=== PATIENT | male | born 1945 | race Caucasian/White ===

== ENCOUNTER 2016-09-26 15:54 | Inpatient (IN) | payer OTHER, MEDICARE ==
[2016-09-26 16:21] LABS: % BASOPHILS 0.6 % (0.0-2.0); % EOSINOPHILS 2.3 % (0.0-5.0); % LYMPHOCYTES 26.1 % (20.0-50.0); % MONOCYTES 9.5 % (2.0-10.0); % NEUTROPHILS 61.5 % (40.0-80.0); HEMATOCRIT 42.8 % (39.0-49.0); HEMOGLOBIN 14.4 gm/dL (12.6-17.4); MEAN CORPUSCULAR HEMOGLOBIN 31.2 pg (27.0-31.0); MEAN CORPUSCULAR HGB CONC 33.6 pg (28.0-36.0); NEUTROPHILE ABSOLUTE 7.7 Th/cmm (1.8-8.0); PLATELET COUNT 270 Th/cmm (150-400); RED CELL DISTRIBUTION WIDTH 11.6 % (11.5-20.0)
[2016-09-26] MEDS ORDERED: Sodium Chloride 0.9% 1,000 ML IV ONE ×2 (16:26)
[2016-09-26 16:27] LABS: WHITE BLOOD COUNT 12.6 Th/cmm (4.8-10.8)
[2016-09-26] MEDS ORDERED: Diltiazem 5 mg/mL 5mL Vial IVP STA (16:38)
[2016-09-26] MEDS ORDERED: Diltiazem 5 mg/mL 5mL Vial IVP ONE (16:39)
[2016-09-26 16:41] LABS: ALB/GLOB RATIO 1.3 (1.0-1.8); ALKALINE PHOSPHATASE 94 U/L (34-104); ANION GAP 14.5 (7.0-16.0); BILIRUBIN,TOTAL 0.7 mg/dL (0.3-1.0); BUN - UREA NITROGEN 25 mg/dL (7-25); BUN/CREATININE RATIO 27.8; CALCIUM SERUM 9.2 mg/dL (8.6-10.3); CARBON DIOXIDE 22.8 mEq/L (21.0-31.0); CHLORIDE 99 mEq/L (98-107); CREATININE - SERUM 0.9 mg/dL (0.7-1.3); GLUCOSE 123 mg/dL (70-105); POTASSIUM SERUM 4.3 mEq/L (3.5-5.1); SGOT 39 U/L (13-39); SGPT/ALT 28 U/L (7-52); SODIUM SERUM 132 mEq/L (136-145)
--- NOTE | 2016-09-26 16:51 | ED Physician Chart ---
Chief Complaint/HPI - Patient Information Date Seen:: 09/26/16 Time Seen:: 16:25 Chief Complaint:: FAST HEART RATE History of Present Illness:: THIS IS A 71 YO MALE HYPERTENSIVE DIABETIC WHO WAS SENT TO THIS ER BECAUSE OF HIS FAST HEART RATE. HE DENIES CHEST PAIN, SOB AND DIZZINESS. HE DENIES HAVING AT HEART ATTACK AND STROKE IN THE PAST. HE WAS SEEING HIS DOCTOR ABOUT HIS LEFT KNEE. HE IS NOT A SMOKER OR A DRINKER. HE DENIES HAVING ELEVATED LIPIDS AND THYROID DISEASE. Allergies:: Allergies Allergy/AdvReac Type Severity Reaction Status Date / Time Penicillins Allergy Verified 09/26/16 16:19 Vitals:: Vital Signs - 8 hr 09/26/16 09/26/16 16:18 16:19 Temp 98.0 F HR 160 159 RR 16 18 BP 160/109 201/140 O2 Sat % 99 97 Historian:: Patient Review:: Nurse's Note Reviewed Review of Systems - Review of Systems General/Constitutional: No fever, No chills, No weight loss, No weakness, No diaphoresis, No edema, No loss of appetite Skin: No skin lesions, No rash, No bruising Head: No headache, No light-headedness Eyes: No loss of vision, No pain, No diplopia ENT: No earache, No nasal drainage, No sore throat, No tinnitus Neck: No neck pain, No swelling, No thyromegaly, No stiffness, No mass noted Cardio Vascular: No chest pain, Palpitations, No PND, No orthopnea, No edema Pulmonary: No SOB, No cough, No sputum, No wheezing GI: No nausea, No vomiting, No diarrhea, No pain, No melena, No hematochezia, No constipation, No hematemesis G/U: No dysuria, No frequency, No hematuria Musculoskeletal: No bone or joint pain, No back pain, No muscle pain Endocrine: No polyuria, No polydipsia Psychiatric: No prior psych history, No depression, No anxiety, No suicidal ideation Hematopoietic: No bruising, No lymphadenopathy Allergic/Immuno: No urticaria, No angioedema Neurological: No syncope, No focal symptoms, No weakness, No paresthesia, No headache, No seizure, No dizziness, No confusion, No vertigo Past Medical History - Past Medical History Obtainable: Yes Past Medical History: HTN, DM, CAD, Arthritis Family History: None Social History: Non Smoker, No Alcohol, No Drug Use, Surgical History: None Psychiatricy History: None Medication: Reviewed Family Medical History - Family Member Mother History Unknown: Yes Physical Exam - Physical Examination General/Constitutional: Awake, Well-developed, well-nourished, Alert, No distress, GCS 15, Non-toxic appearing, Ambulatory Other Gen/Cons comments:: OBESE Head: Atraumatic Eyes: Lids, conjuctiva normal, PERRL, EOMI Skin: Nl inspection, No rash, No skin lesions, No ecchymosis, Well hydrated, No lymphadenopathy ENMT: External ears, nose nl, Nasal exam nl, Lips, teeth, gums nl Neck: Nontender, Full ROM w/o pain, No JVD, No nuchal rigidity, No bruit, No mass, No stridor Respiratory: Nl effort/Exclusion, Clear to Auscultation, No Wheeze/Rhonchi/Rales Cardio Vascular: RRR, No murmur, gallop, rubs, NL S1 S2 Other Cardio Vascular comments:: TACHYCARDIA 167 BEATS A MINUTES GI: No tenderness/rebounding/guarding, No organomegaly, No hernia, Normal BS's, Nondistended, No mass/bruits, No McBurney tenderness : No CVA tenderness Extremities: No tenderness or effusion, Full ROM, normal strength in all extremities, No edema, Normal digits & nails Other Extremities comments:: LEFT KNEE IS TENDER WITH PAINFUL ROM Neuro/Psych: Alert/oriented, DTR's symmetric, Normal sensory exam, Normal motor strength, Judgement/insight normal, Mood normal, Normal gait, No focal deficits Misc: normal gait, Normal back, No paraspinal tenderness Labs/Radiology/EKG Results - Lab Results Results: Laboratory Tests 09/26/16 09/26/16 09/26/16 16:00 16:00 16:08 WBC 12.6 H RBC 4.60 Hgb 14.4 Hct 42.8 MCV 93.0 MCH 31.2 H MCHC Differential 33.6 RDW 11.6 Plt Count 270 MPV 9.0 Neutrophils % 61.5 Lymphocytes % 26.1 Monocytes % 9.5 Eosinophils % 2.3 Basophils % 0.6 Sodium 132 L Potassium 4.3 Chloride 99 Carbon Dioxide 22.8 Anion Gap 14.5 BUN 25 Creatinine 0.9 Est GFR ( Amer) TNP Est GFR (Non-Af Amer) TNP BUN/Creatinine Ratio 27.8 Glucose 123 H POC Glucose 128 H Calcium 9.2 Total Bilirubin 0.7 AST 39 ALT 28 Alkaline Phosphatase 94 Total Protein 7.2 Albumin 4.1 L Globulin 3.1 Albumin/Globulin Ratio 1.3 - EKG Interpretations EKG Time:: 15:56 Rate & Rhythm: 153 [place]: LEFT AXIS Intervals: NO ECTOPICS Assessment - Assessment General Assessment: THE PATIENT WAS GIVEN A FLUID CHALLENGE AND THERE WAS NO GOOD RESPONSE. THE PATIENT WAS PLACED ON O2 NASAL CANNULA. THE PATIENT WAS GIVEN CARDIAZEM 10 MG IV PUSH AND HE RATE RESPONDED GOING DOWN TO 116 BEATS A MINUTES. THE PATIENT TOLERATED THIS WELL AND THE BLOOD PRESSURE ALSO CAME DOWN NICELY. ED Septic Shock - . Is Septic Shock (SBP<90, OR Lactate>4 mmol\L) present?: No - <6hrs of presentation: Vital Signs: Vital Signs - 8 hr 09/26/16 09/26/16 16:18 16:19 Temp 98.0 F HR 160 159 RR 16 18 BP 160/109 201/140 O2 Sat % 99 97 Reassessment (Disposition) - Reassessment Reassessment Condition:: Improved - Diagnosis Diagnosis:: TACHYCARDIA HYPERTENSION UNCONTROLLED DIABETES MELLITUS - Patient Disposition Discharge/Transfer:: Acute Care w/in this hosp Admitting Medical Physician:: Carlos Smith Condition at Disposition:: Improved ED Discharge Plan - Patient Disposition Admit/Discharge/Transfer: Acute Care w/in this hosp Condition at Disposition: Improved
[2016-09-26 16:53] LABS: INR 1.01 (0.5-1.4); PROTHROMBIN TIME (TEST) 10.5 SECONDS (9.5-11.5)
[2016-09-26 17:04] LABS: CHOLESTEROL 179 mg/dL (<200); TRIGLYCERIDES 218 mg/dL (<150)
[2016-09-26] MEDS ORDERED: Diltiazem 5 mg/mL 25mL Vial IV ONE (18:51)
--- NOTE | 2016-09-26 19:26 | Admit Criteria Form ---
Admit Criteria Forms - Admit Criteria Diagnosis: INTENSIVE CARE UNIT ADMISSION Intensive Care Admission Guidelines ( Place 'X' for any and all applicable criteria): Admission to ICU may be indicated when need is demonstrated by ANY ONE of the following (1)(2)(3)(4)(5)(6)(7)(8)(9) : [X]I. Vital sign abnormalities, including ANY ONE of the following: [ ]a) Systolic arterial pressure less than 90 mm Hg, or 20 mm Hg below the patient's usual pressure [ ]b) Diastolic arterial pressure greater than 120 mm Hg [ ]c) Mean arterial pressure less than 70 mm Hg [A] [X]d) Pulse less than 40 or greater than 140 beats per minute (in adult) [ ]e) Respiratory rate greater than 35 or less than 8 breaths per minute [ ]II. Laboratory findings (new), including ANY ONE of the following (10): [ ]a) Saturation of arterial oxygen less than 88% or partial pressure of oxygen less than 60 mm Hg (8.0 kPa) despite oxygen supplementation [ ]b) Rising partial pressure of carbon dioxide with respiratory acidosis [ ]c) pH less than 7.2 or greater than 7.65 [ ]d) Serum glucose greater than 800 mg/dL (44.4 mmol/L) [ ]e) Serum sodium less than 110 mEq/L (mmol/L) or greater than 160 mEq/L (mmol/L) [ ]f) Serum potassium less than 2 mEq/L (mmol/L) or greater than 7 mEq /L (mmol/L) [ ]g) Serum calcium greater than 15 mg/dL (3.75 mmol/L) [ ]h) Serum phosphorus less than 1 mg/dL (0.32 mmol/L) [ ]i) Toxic drug level or poisoning causing or likely to cause neurologic or Hemodynamic instability [ ]j) Less severe laboratory abnormalities contributing to ANY ONE of the following: [ ]i) Seizure [ ]ii) Altered mental status [ ]iii) Muscle weakness [ ]iv) Arrhythmias [ ]v) Hemodynamic instability [ ]vi) Other significant clinical manifestations [ ]III. Electrocardiogram (or cardiac monitoring) findings, including ANY ONE of the following: [ ]a) Inherently unstable or life-threatening arrhythmia (eg, sustained ventricular tachycardia, ventricular fibrillation, asystole) [ ]b) Arrhythmia causing severe hypotension (eg, bradycardia, tachycardia) [ ]c) Complete heart block causing severe hypotension [ ]d) Other findings indicative of a need for intensive care (eg , [place]) [ ]IV.Physical findings, including ANY ONE of the following: [ ]a) Threatened airway [ ]b) Sudden altered mental status [ ]c) Repeated or prolonged seizures [ ]d) Coma [ ]e) New-onset anuria (urine output <0.1 mL/kg/hr over 4 h) [ ]f) Cyanosis (new) [ ]g) Cardiac tamponade [ ]h) Status post respiratory or cardiac arrest [ ]i) Severe tejada (eg, partial thickness tejada over more than 10% of body surface, third-degree tejada) [ ]j) Findings consistent with abdominal emergency (eg, peritoneal signs) [ ]V.Imaging findings, such as dissecting aneurysm or ruptured viscus [ ].Specific intervention or monitoring needed, as indicated by ANY ONE of the following: [ ]a) New need for assisted ventilation, invasive or noninvasive(11) [ ]b) New need for intubation (eg, to protect airway) [ ]c) New tracheostomy (less than 48 hours old) [ ]d) Hourly vital signs or neurologic checks [ ]e) Pulmonary artery line monitoring needed [ ]f) Continuous arterial line monitoring needed [ ]g) Continuous IV vasoactive drugs [ ]h) Continuous IV antiarrhythmics [ ]i) Large volume IV fluid resuscitation (eg, greater than 6 L per day ) [ ]j) Large or rapid transfusion needs (eg, more than 6 units within 24 hours) [ ]k) High-risk IV treatment, such as bolus IV medicatns or mannitol infusion [ ]l) Acute cardiac pacing [ ]m) Intra-aortic balloon pump [ ]n) Ventricular assist device [ ]o) Cardioversion [ ]p) Pericardiocentesis [ ]q) Hemodialysis in unstable patient [ ]r) Continuous renal replacement therapy (eg, continuous veno-venous hemofiltration) [ ]s) Peritoneal dialysis initiation [ ]t) Emergency bronchoscopic therapy (eg, for hemoptysis) [ ]u) Emergency endoscopic therapy for bleeding [ ]v) Balloon tamponade for variceal bleeding [ ]w) Intracranial pressure monitoring or tissue oxygen monitoring [ ]x) Ventriculostomy monitoring [ ]y) Treatment of ongoing seizures [ ]z) Induced hypothermia or coma [ ]aa) Ongoing frequent testing and treatment for acute conditions, including ANY ONE of the following: [ ]i) Correction of severe metabolic acidosis/ alkalosis [ ]ii). Severe fluid overload [ ]iii) Cerebral edema [ ]iv) Monitoring or suctioning for respiratory insufficiency or acidosis [ ]v) Monitoring for active bleeding [ ]bb) Rapid desensitization for high-risk hypersensitivity reaction to required medication (eg, penicillin)(12) [ ]cc) Other need for treatment or monitoring not available outside the ICU [ ]VII.Cardiology diagnoses or procedures, including ANY ONE of the following (13)(14)(15)(16)(17): [ ]a) Chest pain with ANY ONE of the following: [ ]i) Hemodynamic instability [ ]ii) Suspicion of diagnoses needing ICU care (eg, aortic dissection) [ ]iii) New unstable or symptomatic arrhythmia or ECG finding (eg, ventricular tachycardia, ventricular fibrillation, advanced heart block) [ ]iv) Syncope or near-syncope [ ]v) SBP less than 100 mm Hg [ ]vi) Pulmonary edema thought to be due to ischemia [ ]vii) New or worsening mitral regurgitation murmur, S3 , or rales [ ]b) Acute [place] with complications as indicated by ANY ONE of the following: [ ]i) Persistent chest pain [ ]ii) Hemodynamic instability [ ]iii) New unstable or symptomatic arrhythmia or ECG finding (eg, ventricular tachycardia, ventricular fibrillation, advanced heart block) [ ]iv) Syncope or near-syncope [ ]v) Pulmonary edema thought to be due to ischemia [ ]vi) New or worsening mitral regurgitation murmur, S3 , or rales [ ]vii) New-onset bundle branch block [ ]viii) Hemorrhagic complication (eg, intracranial or access site bleed following thrombolysis) [ ]c) Cardiac arrhythmia or conduction defect with Hemodynamic instability [ ]d) Complication of cardiac ablation, including ANY ONE of the following(18): [ ]i) Pericardial tamponade [ ]ii) Hemodynamic instability [ ]iii) Thromboembolic stroke [ ]iv) Aortic valve injury [ ]v) Vascular injuries [ ]vi) Esophageal perforation [ ]vii) Severe arrhythmia [ ]viii) Air embolism [ ]ix) Other severe complication [ ]e) Cardiogenic shock [ ]f) Hypertensive emergency, with need for ANY ONE of the following(19): [ ]i) IV antihypertensive therapy [ ]ii) Invasive hemodynamic monitoring (eg, arterial line) [ ]g) Pericardial tamponade [ ]h) Severe heart failure, with ANY ONE of the following(15): [ ]i) Respiratory failure [ ]ii) Cardiogenic shock [ ]iii) Severe arrhythmias [ ]iv) Evidence of cardiac ischemia [ ]i Myocarditis, with ANY ONE of the following [ ]i) Hemodynamic instability [ ]ii) Respiratory failure [ ]iii) Severe arrhythmias [ ]iv) Need for cardiac assist device (eg, left ventricular assist device or extracorporeal membrane oxygenator) [ ]j) Status post cardiac arrest(20) [ ]VIII. Cardiovascular Surgery diagnoses or procedures, including ANY ONE of the following.(21)(22): [ ]a) Acute aortic dissection [ ]b) Aortic surgery for ANY ONE of the following: [ ]i) Thoracic aneurysm [ ]ii) Abdominal aneurysm with ANY ONE of the following(23): [ ]1) Emergency repair [ ]2) Severe cardiopulmonary disease [ ]3) Dialysis-dependent renal failure [ ]4) Need for IV blood pressure control [ ]5) Need for ongoing ventilatory support [ ]6) Perioperative complications, including ANY ONE of the following: [ ]A. Sustained Hemodynamic instability [ ]B. Cardiac ischemia or arrhythmia [ ]C. Hypothermia (less than 35 degrees C (95 degrees F)) [ ]D. Blood transfusion greater than 3 L [ ]iii) Aortic coarctation operative excision or repair [ ]iv) Aortofemoral or aortoiliac bypass with ANY ONE of the following: [ ]1) Continued intubation [ ]2) Hemodynamic instability [ ]3) Need for IV blood pressure control [ ]4) Severe cardiopulmonary disease [ ]c) Cardiac surgery [ ]d) Carotid endarterectomy or stent placement with ANY ONE of the following: [ ]i) Blood pressure <100/60 mm Hg or >160/90 mm Hg despite 4 h of postanesthetic management [ ]ii) New or progressive neurologic defect [ ]iii) Chest pain [ ]iv) Continued intubation [ ]v) Heart failure [ ]vi) Airway compromise by hematoma or vocal cord paralysis [ ]vi) Need for IV blood pressure control [ ]e) Heart transplant [ ]f) Infrainguinal peripheral vascular surgery with ANY ONE of the following: [ ]i) Hemodynamic instability [ ]ii) Acute complications such as persistent chest pain or respiratory distress [ ]iii) Requirement for IV antiarrhythmic or vasoactive agent [ ]iv) Requirement for pulmonary artery catheter [ ]v) Severe hypertension despite 6 hours of recovery room management [ ]g) Complications of any surgery requiring ICU intervention as indicated by ANY ONE of the following(24): [ ]i) Hemodynamic instability [ ]ii) Myocardial infarction with complications (eg, severe arrhythmia, hypotension) [ ]iii) Excessive bleeding or severe coagulopathy [ ]iv) Respiratory failure [ ]v) Renal failure [ ]vi) Airway instability or obstruction [ ]vii) Neurologic deterioration [ ]viii) Infection with likelihood of sepsis syndrome or significant fluid shifts [ ]IX.Endocrinology diagnoses or procedures, including ANY ONE of the following(25)(26): [ ]a) Adrenal crisis with Hemodynamic instability(27) [ ]b) Pheochromocytoma with ANY ONE of the following(28): [ ]i) Hypertensive crisis [ ]ii) Postoperative Hemodynamic instability [ ]iii) Need for IV vasoactive therapy [ ]iv) Need for invasive arterial or central venous pressure monitoring [ ]v) Organ ischemia [ ]c) Diabetic hyperosmolar state with obtundation or coma [ ]d) Diabetic ketoacidosis with ANY ONE of the following: [ ]i) Serum pH less than 7.10 or bicarbonate level less than 10 mEq/L (mmol/L) [ ]ii) Rapidly changing electrolytes [ ]iii) Hypotension [ ]iv) Requirement for large-volume fluid resuscitation [ ]v) Respiratory insufficiency [ ]vi) Life-threatening cardiac dysrhythmias [ ]vii) Obtundation [ ]viii) Severe precipitating condition such as sepsis, stroke, or acute [place] [ ]e) Severe hypoglycemia requiring continuous glucose infusion with frequent adjustment or glucagon infusion [ ]f) Hyperthyroidism associated with thyroid storm (also known as thyrotoxic crisis)(29) [ ]g) Myxedema with life-threatening neurologic, cardiovascular, electrolyte, or renal dysfunction(29) [ ]h) Diabetes insipidus that cannot be controlled with routine medication (30) [ ]X. Gastroenterology diagnoses or procedures, including ANY ONE of the following: [ ]a) Esophageal perforation(31) [ ]b) Severe caustic esophageal injury(31) [ ]c) Liver disease complications with ANY ONE of the following(32): [ ]i) Severe hepatic encephalopathy (eg, stage 3 (somnolent) or higher) [ ]ii) Type 1 hepatorenal syndrome [ ]iii) Other cirrhosis-associated causes of acute renal failure ( eg, severe hypovolemia, acute tubular necrosis, abdominal compartment syndrome) [ ]iv) Hemodynamic instability [ ]v) Respiratory insufficiency due to severe ascites [ ]vi) Sepsis due to spontaneous bacterial peritonitis [ ]d) Fulminant hepatic failure when aggressive intervention or transplant is anticipated (32) [ ]e) Gastrointestinal hemorrhage (upper or lower) with ANY ONE of the following(33)(34): [ ]i) Active ongoing bleeding [ ]ii) Transfusion requirement greater than 2 units of packed red cells [ ]iii) Bleeding ulcer or nonbleeding visible vessel seen on endoscopy [ ]iv) Bleeding ulcer, visible blood vessel, bleeding (or recently bleeding) esophageal varices seen on endoscopy [ ]v) Hypotension [ ]vi) Syncope [ ]vii) Coagulopathy [ ]viii) Hepatic cirrhosis [ ]ix) Abnormal mental status [ ]x) Unstable comorbid condition or end organ dysfunction [ ]xi) Ischemia due to poor perfusion [ ]xii) Need for hemodynamic monitoring (eg, for patients with heart failure or valvular disease) [ ]f) Severe pancreatitis indicated by ANY ONE of the following (35)(36): [ ]i) Requirement for aggressive fluid resuscitation [ ]ii) Life-threatening electrolyte abnormality [ ]iii) SBP less than 90 mm Hg [ ]iv) Persistent tachycardia greater than 120 beats per minute [ ]v) Patients at high risk of rapid deterioration, including ANY ONE of the following: [ ]1) Calculated Sallis II score greater than 8 [ ]2) Age older than 55 years [ ]3) BMI greater than 30 [ ]4) Greater than 30% pancreatic necrosis on CT scan [ ]5) Admission hematocrit greater than 47% (0.47) [ ]vi) Organ failure as indicated by ANY ONE of the following: [ ]1) Serum creatinine greater than 1.9 mg/dL (168 micromoles/L) [ ]2) Requirement for mechanical ventilation [ ]3) Urine output less than 50 mL/hour [ ]4) Arterial partial pressure of oxygen less than 60 mm Hg (8.0 kPa) despite supplemental oxygen [ ]5) PiO2/FiO2 ratio less than 300 [ ]vii) Expanding pseudocyst [ ]viii) Infected pancreas [ ]ix) Pleural effusion [ ]x) Encephalopathy [ ]xi) Severe comorbidities [ ]XI. General Surgery diagnoses or procedures, including ANY ONE of the following (9)(24)(37): [ ]a) Acute abdominal catastrophe (eg, ischemic bowel, perforated viscus, abdominal compartment syndrome) [ ]b) Complications of any surgery requiring ICU intervention as indicated by ANY ONE of the following: [ ]i) Hemodynamic instability [ ]ii) [place] with complications (eg, severe arrhythmia, hypotension) [ ]iii) Excessive bleeding or severe coagulopathy [ ]iv) Respiratory failure [ ]v) Renal failure [ ]vi) Airway instability or obstruction [ ]vii) Neurologic deterioration [ ]viii) Infection with likelihood of sepsis syndrome or significant fluid shifts [ ]c) Multiple trauma with complicating features as indicated by ANY ONE of the following(38): [ ]i) Impending acute respiratory failure due to lung contusion, unstable chest wall, aspiration, or hemorrhage [ ]ii) Facial or neck injury threatening airway patency [ ]iii) Cardiac contusion [ ]iv) Pericardial effusion [ ]v) Bronchial tear [ ]vi) Hemodynamic instability [ ]vii) Rhabdomyolisis requiring large volume IV fluid resuscitation [ ]viii)Other significant complicating feature [ ]d) Organ transplant(39)(40) [ ]e) Esophagectomy(31) [ ]f) Whipple procedure [ ]g) Preoperative or postoperative patients requiring ICU intervention, such as hemodynamic optimization, pulmonary artery monitoring, mechanical ventilation, or extensive nursing care [ ]h) Obesity surgery patients with ANY ONE of the following(41): [ ]i) ICU management needs for comorbid conditions, such as sleep apnea or airway management needs [ ]ii) Failed postoperative extubation [ ]iii) Intraoperative complications [ ]XII. Nephrology diagnoses or procedures, including acute, or acute on chronic renal insufficiency with ANY ONE of the following(44)(45): [ ]a) Life-threatening electrolyte or acid-base disorder [ ]b) Acute pulmonary edema [ ]c) Hypotension or significant volume depletion [ ]d) Hypertensive emergency [ ]e) Underlying critical illness contributing to renal failure (eg, septic shock, hepatorenal syndrome) [ ]f) Need for continuous renal replacement therapy [ ]XIII. Neurology diagnoses or procedures, including ANY ONE of the following (46)(47) [B] : [ ]a) Intracranial hypertension requiring ANY ONE of the following(49 ): [ ]i) Induced barbiturate coma [ ]ii) Pharmacologic paralysis or deep sedation and mechanical ventilation [ ]iii) Intracranial pressure or cerebral perfusion pressure monitoring [ ]iv) IV mannitol or hypertonic saline [ ]v) Frequent serum osmolality measurements [ ]b) Seizures with ANY ONE of the following(50): [ ]i) Status epilepticus [ ]ii) Airway compromise requiring or likely to require mechanical ventilation [ ]iii) Severe electrolyte abnormalities causing seizures [ ]c) Progressive acute neurologic dysfunction requiring or likely to require ANY ONE of the following: [ ]i) Mechanical ventilation [ ]ii) Intracranial pressure or cerebral perfusion pressure monitoring [ ]d) Meningitis with obtundation or respiratory insufficiency [C])(51 ) [ ]e) Stroke with ANY ONE of the following(52)(53): [ ]i) Need for observation after thrombolysis [ ]ii) Altered mental status [ ]iii) Need for mechanical ventilation [ ]iv) Elevated intracranial pressure [ ]v) Hypertensive emergency [ ]vi) High risk of progressive infarction or deterioration based on CT scan or MRI [ ]vii) Hemorrhage [ ]f) Acute coma [ ]g) Acute spontaneous intracranial hemorrhage(53)(54) [ ]h) Drug ingestion with ANY ONE of the following(56)(57): [ ]i) Hemodynamic instability [ ]ii) Respiratory depression (partial pressure of carbon dioxide >45 mm Hg (6.0 kPa), new) [ ]iii) Patient requires or is likely to require mechanical ventilation. [ ]iv) Arrhythmias [ ]v) Seizures [ ]vi) Altered mental status ([place] coma scale score less than 12, new) [ ]vii) Significant risk for acute deterioration (eg, toxic level of hypotension or arrhythmia-producing drug) [ ]viii) Drug-induced hypothermia or hyperthermia [ ]ix) Increasing metabolic acidosis [ ]x) Severe hypoglycemia requiring glucose infusion with frequent adjustment or glucagon administration [ ]xi) Ongoing antidote administration (eg, continuous naloxone infusion, organophosphate toxicity treatment) [ ]xii) Emergency intervention need (eg, dialysis, hemoperfusion, restraints) [ ]i) Brain with preparation for organ donation [ ]j) Traumatic brain injury with ANY ONE of the following(55): [ ]i) Altered mental status (eg, new onset Aleja coma scale score less than 10) [ ]ii) Cerebral edema [ ]iii) Cerebral hemorrhage [ ]iv) Increased intracranial pressure [ ]XIV. Neurosurgery diagnoses or procedures, including ANY ONE of the following(49)(58)(59): [ ]a) Emergency craniotomy for tumor, hematoma, or trauma [ ]b) Elective craniotomy for posterior fossa tumor [ ]c) Elective craniotomy (supratentorial) for tumor with ANY ONE of the following: [ ]i) Postoperative neurologic deficit or impaired consciousness 6 hours after completion of procedure [ ]ii) SBP less than 110 mm Hg or greater than 180 mm Hg despite therapy [ ]iii) Extensive operative blood loss [ ]iv) High anesthesia risk (eg, [place] [employer] score greater than 3 [ ]d) Craniotomy for aneurysm with ANY ONE of the following: [ ]i) Postoperative neurologic deficit or impaired consciousness 6 hours after completion of procedure [ ]ii) Preoperative Bucio-Cummings grade 3 or higher [ ]iii) SBP less than 110 mm Hg or greater than 180 mm Hg despite therapy [ ]iv) Intracranial pressure monitoring [ ]e) Acute spinal cord injury [ ]f) Subarachnoid hemorrhage [ ]g) Traumatic brain injury with ANY ONE of the following: [ ]i) Acute mental status change ([place] coma scale score less than 10) [ ]ii) CT scan showing cerebral edema or hemorrhage [ ]iii) Intracranial pressure monitoring [ ]h) Complications of any surgery requiring ICU intervention as indicated by ANY ONE of the following(60): [ ]i) Hemodynamic instability [ ]ii) [place] with complications (eg, severe arrhythmia, hypotension) [ ]iii) Excessive bleeding or severe coagulopathy [ ]iv) Respiratory failure [ ] v) Renal failure [ ]vi) Airway instability or obstruction [ ]vii) Neurologic deterioration [ ]viii) Infection with likelihood of sepsis syndrome or significant fluid shifts [ ]i) Preoperative or postoperative patients requiring ICU intervention, such as hemodynamic optimization, pulmonary artery monitoring, mechanical ventilation, or extensive nursing care [ ]XV.Obstetrics and Gynecology diagnoses or procedures, including ANY ONE of the ffg. (61)(62)(63): [ ]a) Severe peripartum condition as indicated by ANY ONE of the following: [ ]i) Eclampsia [ ]ii) Hypertensive emergency [ ]iii) HELLP syndrome (hemolysis, elevated liver enzymes, and low platelet count) [ ]iv) Pulmonary edema [ ]v) Respiratory failure [ ]vi) Pulmonary embolism [ ]vii) Anaphylactoid syndrome of (amniotic fluid embolus) [ ]viii) Ovarian hyperstimulation syndrome [D] [ ]ix) Acute fatty liver of (hepatic failure) [ ]x) Complications such as placental abruption or severe hemorrhage [ ]xi) Sepsis (eg, puerperal sepsis, chorioamnionitis, septic ) [ ]xii) cardiomyopathy with severe congestive heart failure (eg, respiratory failure, cardiogenic shock) [ ]b) Ruptured ectopic [ ]c) Complications of any surgery requiring ICU intervention as indicated by ANY ONE of the following: [ ]i) Hemodynamic instability [ ]ii) [place] with complications (eg, severe arrhythmia, hypotension) [ ]iii) Excessive bleeding or severe coagulopathy [ ]iv) Respiratory failure [ ]v) Renal failure [ ]vi) Airway instability or obstruction [ ]vii) Neurologic deterioration [ ]viii) Infection with likelihood of sepsis syndrome or significant fluid shifts [ ]d) Preoperative or postoperative patients requiring ICU intervention , such as hemodynamic optimization, pulmonary artery monitoring, mechanical ventilation, or extensive nursing care [ ]XVI.Ophthalmology diagnoses or procedures, including ANY ONE of the following (64): [ ]a) Complications of any surgery requiring ICU intervention, such as ANY ONE of the following: [ ]i) Hemodynamic instability [ ]ii) [place] with complications (eg, severe arrhythmia, hypotension) [ ]iii) Excessive bleeding or severe coagulopathy [ ]iv) Respiratory failure [ ]v) Renal failure [ ]vi) Airway instability or obstruction [ ]vii) Neurologic deterioration [ ]viii) Infection with likelihood of sepsis syndrome or significant fluid shifts [ ]b) Preoperative or postoperative patients requiring ICU intervention , such as hemodynamic optimization, pulmonary artery monitoring, mechanical ventilation, or extensive nursing care [ ]XVII.Orthopedics diagnoses or procedures, including ANY ONE of the following [phone]): [ ]a) Complications of any surgery requiring ICU intervention as indicated by ANY ONE of the following: [ ]i) Hemodynamic instability [ ]ii) [place] with complications (eg, severe arrhythmia, hypotension) [ ]iii) Excessive bleeding or severe coagulopathy [ ]iv) Respiratory failure [ ]v) Renal failure [ ]vi) Airway instability or obstruction [ ] vii) Neurologic deterioration [ ]viii) Infection with likelihood of sepsis syndrome or significant fluid shifts [ ]b) Multiple trauma with complicating features as indicated by ANY ONE of the following(38): [ ]i) Impending acute respiratory failure due to lung contusion, unstable chest wall, pneumothorax, aspiration, or hemorrhage [ ]ii) Facial or neck injury threatening airway patency [ ]iii) Cardiac contusion [ ]iv) Rhabdomyolysis requiring large volume IV fluid resuscitation [ ]v) Pericardial effusion [ ]vi) Bronchial tear [ ]vii) Hemodynamic instability [ ]viii) Other significant complicating feature [ ]c) Threatened compartment syndrome [ ]d) Severe tejada with ANY ONE of the following(68)(69)(70): [ ]i) Hypotension or requirement for aggressive fluid resuscitation [ ]ii) Respiratory insufficiency with requirement for high- flow oxygen or mechanical ventilation [ ]iii) Carbon monoxide poisoning [ ]iv) Life-threatening cardiac, renal, pulmonary, or neurologic dysfunction [ ]v) High-voltage (eg, 1000 volts or more) electrical burn [ ]vi) Requirement for frequent or intensive debridement and dressing changes; examples include: [ ]1) Partial thickness tejada greater than 10% of body surface [ ]2) Tejada on face, hands, feet, genitalia, perineum , or major joints [ ]3) Third-degree tejada [ ]4) Any burn greater than 15% of body surface area [ ]vii) Inhalation lung injury [ ]viii) Concomitant trauma or other medical condition requiring ICU care [ ]e) Preoperative or postoperative patients requiring ICU intervention , such as hemodynamic optimization, pulmonary artery monitoring, mechanical ventilation, or extensive nursing care [ ]XVIII.Otolaryngology diagnoses or procedures, including ANY ONE of the following (71)(72): [ ]a) Complications of any surgery requiring ICU intervention as indicated by ANY ONE of the following: [ ]i) Hemodynamic instability [ ]ii) [place] with complications (eg, severe arrhythmia, hypotension) [ ]iii) Excessive bleeding or severe coagulopathy [ ]iv) Respiratory failure [ ]v) Renal failure [ ]vi) Airway instability or obstruction [ ]vii) Neurologic deterioration [ ]viii) Infection with likelihood of sepsis syndrome or significant fluid shifts [ ]b) Airway or hemodynamic compromise that persists after 3 hours of observation in postanesthesia care unit following nasal, palate (eg, uvulopalatopharyngoplasty or palatoplasty), or tongue surgery for sleep apnea [ ]c) Preoperative or postoperative patient requiring ICU intervention, such as hemodynamic optimization, pulmonary artery monitoring, mechanical ventilation, or extensive nursing care [ ]d) Symptomatic upper airway compromise (eg, laryngeal edema, mass) [ ]e) Other airway-compromising procedure (eg, posterior nasal packing) [ ]XIX.Thoracic Surgery and Pulmonary Disease Diagnosis or procedures, including ANY ONE of the following(6): [ ]a) Asthma with ANY ONE of the following(73)(74): [ ]i) Impending or actual respiratory arrest [ ]ii) Need for mechanical ventilation [ ]iii) Peak expiratory flow rate less than 30% of predicted or personal best [ ]iv) Peak expiratory flow rate or FEV1 less than 40% predicted after 1 hour of initial treatment [ ]v) Acidosis [ ]vi) Persistent or worsening hypoxia after initial treatment [ ]vii) Hypercapnia (eg, partial pressure of carbon dioxide greater than 43 mm Hg (5.7 kPa)) [ ]viii) Severe drowsiness, confusion, or coma [ ]ix) Requiring continuous inhaled bronchodilator [ ]b) COPD with ANY ONE of the following(75): [ ]i) Need for assisted ventilation [ ]ii) Hemodynamic instability [ ]iii) Severe dyspnea unresponsive to initial treatment [ ]iv) Change in level of consciousness [ ]v) Persistent findings despite oxygen and outpatient management, including ANY ONE of the following: [ ]1) Partial pressure of oxygen less than 40 mm Hg ( 5.3 kPa) [ ]2) Partial pressure of carbon dioxide greater than 60 mm Hg (8.0 kPa) [ ]3) pH less than 7.25 [ ]4) Worsening hypoxemia or acidosis [ ]c) Cor pulmonale with ANY ONE of the following(75)(76)(77): [ ]i) Hemodynamic instability [ ]ii) Need for IV inotropic or vasoactive agent [ ]iii) Need for invasive hemodynamic monitoring (eg, central venous, pulmonary artery, or arterial catheter) [ ]iv) Hypoxemia with partial pressure of oxygen less than 40 mm Hg (5.3 kPa) [ ]v) Worsening hypoxemia or acidosis despite oxygen therapy [ ]vi) Need for assisted ventilation [ ]vii) Need for right ventricular assist device [ ]viii) Unstable atrial tachyarrhythmia [ ]ix) Need for inhaled nitric oxide [ ]d) Aspiration pneumonia with ANY ONE of the following(78): [ ]i) Acute respiratory distress syndrome (PaO2/FiO2 ratio of 300 or less) [ ]ii) Impending or actual respiratory arrest [ ]iii) Need for invasive or noninvasive mechanical ventilation [ ]e) Pneumocystis jiroveci pneumonia with ANY ONE of the following(79): [ ]i) Impending or actual respiratory arrest [ ]ii) Hypoxia (eg, PO260 mmGh (8.0 kPa) or less despite oxygen therapy) [ ]iii) Need for invasive or noninvasive mechanical ventilation [ ]f) Pneumonia with ANY ONE of the following(80)(81)(82): [ ]i) Need for invasive or noninvasive assisted ventilation [ ]ii) Hemodynamic instability [ ]iii) Severity factors as indicated by 3 or MORE of the following: [ ]1) Respiratory rate 30 breaths per minute or greater [ ]2) PaO2/FiO2 ratio of 250 or less [ ]3) Multilobed infiltrates [ ]4) Altered mental status [ ]5) BUN 20 mg/dL (7.1 mmol/L) or greater [ ]6) WBC count less than 4000/mm3 (4 x109/L) [ ]7) Platelet count <100,000/mm3 (100 x109/L) [ ]8) Temperature less than 36 degrees C (96.8 degrees F ) [ ]9) Hypotension requiring aggressive fluid resuscitation [ ]g) Pulmonary hypertension requiring initiation of parenteral pulmonary vasodilator or trial of inhaled nitric oxide (eg, need for right heart catheterization)(76) [ ]h) Impending respiratory failure as indicated by ANY ONE of the following: [ ]i) Respiratory rate greater than 30 or partial pressure of oxygen less than 60 mm Hg (8.0 kPa) on 50% oxygen or more [ ]ii) Partial pressure of carbon dioxide greater than 45 mm Hg (6.0 kPa) with pH less than 7.35 [ ]i) Respiratory failure with ANY ONE of the following (47): [ ]i) Need for invasive or noninvasive mechanical ventilation [ ]ii) High likelihood of requiring mechanical ventilation within 24 hours [ ]iii) Observation in the first several hours immediately after extubation from mechanical ventilation [ ]iv) Need for close observation and aggressive therapy, such as suctioning, chest physiotherapy, or inhalation treatments at intervals less than 1 hour [ ]v) Pharmacologic ventilatory paralysis [ ]j) Venous thromboembolism with need for systemic or catheter- directed thrombolysis (eg, for limb-threatening thrombosis, phlegmasia cerulea dolens) (83) [ ]k) Pulmonary embolus with ANY ONE of the following(83): [ ]i) Hypotension [ ]ii) Severe hypoxia [ ]iii) Dangerous arrhythmia [ ]iv) Bleeding [ ]v) Need for systemic or catheter-directed thrombolysis [ ]l) Lobectomy or other major thoracic surgery [ ]m) Lung transplant [ ]n) Symptomatic upper airway obstruction (eg, laryngeal edema, mass) [ ]o) Massive hemoptysis [ ]p) Infection or thrombosis of an intravenous device with ANY ONE of the following(6)(84): [ ]i) Hemodynamic instability [ ]ii) Requirement for frequent hemodynamic measurements [ ]iii) Shock [ ]iv) End organ dysfunction [ ] v) Acute renal failure due to missed dialysis [ ]vi) Unstable acute complication (eg, pericardial tamponade , tension pneumothorax) [ ]q) Traumatic rib fracture or fractures with ANY ONE of the following(85): [ ]i) Injury severity score of 19 or greater [ ]ii) Respiratory insufficiency [ ]iii) Flail chest [ ]iv) Sternum fracture [ ]v) Vascular injury (eg, heart or great vessels) [ ]r) Pleural effusion with ANY ONE of the following(86): [ ]i) Respiratory insufficiency [ ]ii) Hemothorax with active ongoing bleeding [ ]iii) Hemodynamic instability [ ]iv) Unstable comorbid condition (eg, sepsis or heart failure [ ]XX. Urology diagnoses or procedures, including ANY ONE of the following ( 87)(88): [ ]a) Renal transplant [ ]b) Complications of any surgery requiring ICU intervention as indicated by ANY ONE of the following: [ ]i) Hemodynamic instability [ ]ii) [place] with complications (eg, severe arrhythmia, hypotension) [ ]iii) Excessive bleeding or severe coagulopathy [ ]iv) Respiratory failure [ ]v) Renal failure [ ]vi) Airway instability or obstruction [ ]vii) Neurologic deterioration [ ]viii) Infection with likelihood of sepsis syndrome or significant fluid shifts [ ]c) Preoperative or postoperative patients requiring ICU intervention , such as hemodynamic optimization, pulmonary artery monitoring, mechanical ventilation , or extensive nursing care [ ]XXI.Infectious Disease diagnoses or procedures, with ANY ONE of the following (6)(43): [ ]a) Hemodynamic instability [ ]b) Shock [ ]c) Requirement for frequent hemodynamic measurements (eg, arterial catheter, pulmonary artery catheter) [ ]d) Sepsis or suspected sepsis with end organ dysfunction (eg, acute kidney injury, acute respiratory distress syndrome) [ ]e) Necrotizing soft tissue infection [ ] XXII.Hematology - Oncology diagnoses or procedures, including chemotherapy administration with ANY ONE of the following(42): [ ]a) Hemodynamic instability [ ]b) Tumor lysis syndrome with ANY ONE of the following : [ ]1) Acute kidney injury [ ]2) Severe electrolyte abnormality [ ]3) Cardiac dysrhythmia [ ]XXIII. Systemic conditions, including ANY ONE of the following: [ ]a) Severe electrolyte or metabolic disturbance causing or likely to cause ANY ONE of the following(10)(89)(90): [ ]i) Life-threatening cardiac dysrhythmia [ ]ii) Respiratory insufficiency [ ]iii) Altered mental status [ ]iv) Seizures [ ]v) Hemodynamic instability [ ]vi) Muscular weakness [ ]b) Environmental injuries such as hypothermia, hyperthermia, electrical injuries, or near drowning(70)(91)(92) The original [facility] content created by [employer] has been revised. The portions of the content which have been revised are identified through the use of italic text or in bold, and [facility] has neither reviewed nor approved the modified material. All other unmodified content is copyright [facility]. Please see references footnoted in the original [facility] edition 2016 Admit Criteria Met?: Yes
[2016-09-26] MEDS ORDERED: Enoxaparin 60 mg/0.6 mL 0.6mL Syr SUBQ ONE (23:00)
[2016-09-27] MEDS ORDERED: Diltiazem 5 mg/mL 25mL Vial IV ONE (05:52)
[2016-09-27] MEDS: INSULIN ASPART SLIDING SCALE 100 UNITS/ML UNIT SUBQ SCH ×5 (06:00→23:30)
[2016-09-27] MEDS ORDERED: Enoxaparin 60 mg/0.6 mL 0.6mL Syr SUBQ SCH (09:00)
[2016-09-27 09:01] LABS: % EOSINOPHILS 0.4 % (0.0-5.0); % MONOCYTES 6.1 % (2.0-10.0); % NEUTROPHILS 85.5 % (40.0-80.0); HEMATOCRIT 40.2 % (39.0-49.0); HEMOGLOBIN 13.6 gm/dL (12.6-17.4); MEAN CORPUSCULAR HEMOGLOBIN 31.6 pg (27.0-31.0); MEAN CORPUSCULAR HGB CONC 33.9 pg (28.0-36.0); MEAN PLATELET VOLUME 7.9 fl; NEUTROPHILE ABSOLUTE 10.3 Th/cmm (1.8-8.0); PLATELET COUNT 226 Th/cmm (150-400); RED BLOOD COUNT 4.32 Mil/cmm (3.80-5.80); RED CELL DISTRIBUTION WIDTH 12.2 % (11.5-20.0)
[2016-09-27 09:19] LABS: ANION GAP 9.8 (7.0-16.0); BUN - UREA NITROGEN 19 mg/dL (7-25); BUN/CREATININE RATIO 23.8; CARBON DIOXIDE 28.7 mEq/L (21.0-31.0); CHLORIDE 97 mEq/L (98-107); CREATININE - SERUM 0.8 mg/dL (0.7-1.3); GLUCOSE 275 mg/dL (70-105); POTASSIUM SERUM 4.5 mEq/L (3.5-5.1); SODIUM SERUM 131 mEq/L (136-145)
--- NOTE | 2016-09-27 09:41 | Diagnostic Imaging Report ---
CHEST X-RAY: AP view INDICATION: Tachycardia COMPARISON: None FINDINGS: Suboptimal lung volumes are seen with increased bibasilar lung markings. No focal consolidation, or pleural effusions. Heart size is at the upper limits of normal and is accentuated by patient's low lung volumes. Borderline prominent heart is noted. Degenerative changes of the spine are noted. IMPRESSION: Suboptimal lung volumes increased bibasilar lung markings likely due to atelectasis. No focal consolidation identified.
--- NOTE | 2016-09-27 14:32 | History & Physical ---
ADMIT DATE: 09/26/2016 HISTORY OF PRESENT ILLNESS: The patient was admitted yesterday. I saw him just now. The patient is a 71-year-old male patient. The patient is known to have history of diabetes, history of hypertension. The patient came to the Emergency Room, found to have a tachycardia and the patient was started to Cardizem and now he is patient atrial fibrillation/flutter. The patient is not smoker or drink. No history of CVA in the past. PHYSICAL EXAMINATION: GENERAL: The patient is alert, oriented, elderly male patient. VITAL SIGNS: As noted. HEAD: Normal. ENT: Normal. NECK: Supple, nontender. LUNGS: Clear. CARDIOVASCULAR SYSTEM: S1, S2 heard. ABDOMEN: Soft. Bowel sounds are heard. CENTRAL NERVOUS SYSTEM: Grossly normal. The patient again has history of hypertension, diabetes, coronary artery disease, and arthritis. The patient diagnosed with tachycardia, atrial fibrillation and flutter, rule out ____ disease, history of hypertension, hypertensive cardiovascular disease, history of diabetes, history of ____ obesity and history of coronary artery disease ____. The patient is being admitted and I called Dr. Hunter to see the patient and I will follow the patient. JOB# [id number]
[2016-09-28 05:36] LABS: % BASOPHILS 0.5 % (0.0-2.0); % EOSINOPHILS 2.7 % (0.0-5.0); % MONOCYTES 10.5 % (2.0-10.0); % NEUTROPHILS 63.3 % (40.0-80.0); HEMATOCRIT 37.1 % (39.0-49.0); HEMOGLOBIN 12.7 gm/dL (12.6-17.4); MEAN CELL VOLUME 93.9 fl (80-99); MEAN CORPUSCULAR HEMOGLOBIN 32.1 pg (27.0-31.0); MEAN CORPUSCULAR HGB CONC 34.2 pg (28.0-36.0); MEAN PLATELET VOLUME 8.9 fl; NEUTROPHILE ABSOLUTE 5.9 Th/cmm (1.8-8.0); PLATELET COUNT 196 Th/cmm (150-400); RED BLOOD COUNT 3.95 Mil/cmm (3.80-5.80); RED CELL DISTRIBUTION WIDTH 12.2 % (11.5-20.0)
[2016-09-28] MEDS: INSULIN ASPART SLIDING SCALE 100 UNITS/ML UNIT SUBQ SCH ×3 (05:41→18:05)
[2016-09-28 05:49] LABS: WHITE BLOOD COUNT 9.3 Th/cmm (4.8-10.8)
[2016-09-28 05:50] LABS: ANION GAP 7.8 (7.0-16.0); BUN - UREA NITROGEN 25 mg/dL (7-25); CALCIUM SERUM 8.7 mg/dL (8.6-10.3); CARBON DIOXIDE 31.1 mEq/L (21.0-31.0); CHLORIDE 97 mEq/L (98-107); GLUCOSE 137 mg/dL (70-105); POTASSIUM SERUM 3.9 mEq/L (3.5-5.1); SODIUM SERUM 132 mEq/L (136-145)
--- NOTE | 2016-09-28 16:27 | General Progress Note ---
Subjective - Review of Systems Subjective: Pt. was admitted for tachycardia Denies any chest pain or sob No acute distress Objective - Results Result Diagrams: 09/28/16 04:40 09/28/16 04:40 Recent Labs: Laboratory Last Values WBC 9.3 Th/cmm (4.8-10.8) D 09/28/16 04:40 RBC 3.95 Mil/cmm (3.80-5.80) 09/28/16 04:40 Hgb 12.7 gm/dL (12.6-17.4) 09/28/16 04:40 Hct 37.1 % (39.0-49.0) L 09/28/16 04:40 MCV 93.9 fl (80-99) 09/28/16 04:40 MCH 32.1 pg (27.0-31.0) H 09/28/16 04:40 MCHC Differential 34.2 pg (28.0-36.0) 09/28/16 04:40 RDW 12.2 % (11.5-20.0) 09/28/16 04:40 Plt Count 196 Th/cmm (150-400) 09/28/16 04:40 MPV 8.9 fl 09/28/16 04:40 Neutrophils % 63.3 % (40.0-80.0) 09/28/16 04:40 Lymphocytes % 23.0 % (20.0-50.0) 09/28/16 04:40 Monocytes % 10.5 % (2.0-10.0) H 09/28/16 04:40 Eosinophils % 2.7 % (0.0-5.0) 09/28/16 04:40 Basophils % 0.5 % (0.0-2.0) 09/28/16 04:40 PT 10.5 SECONDS (9.5-11.5) 09/26/16 16:19 INR 1.01 (0.5-1.4) 09/26/16 16:19 PTT (Actin FS) 23.1 SECONDS (26.0-38.0) L 09/26/16 16:19 Sodium 132 mEq/L (136-145) L 09/28/16 04:40 Potassium 3.9 mEq/L (3.5-5.1) 09/28/16 04:40 Chloride 97 mEq/L (98-107) L 09/28/16 04:40 Carbon Dioxide 31.1 mEq/L (21.0-31.0) H 09/28/16 04:40 Anion Gap 7.8 (7.0-16.0) 09/28/16 04:40 BUN 25 mg/dL (7-25) 09/28/16 04:40 Creatinine 1.0 mg/dL (0.7-1.3) 09/28/16 04:40 Est GFR ( Amer) TNP 09/28/16 04:40 Est GFR (Non-Af Amer) TNP 09/28/16 04:40 BUN/Creatinine Ratio 25.0 09/28/16 04:40 Glucose 137 mg/dL (70-105) H 09/28/16 04:40 POC Glucose 143 MG/DL (70 - 105) H 09/28/16 12:46 Hemoglobin A1c % 6.7 % (4.0-6.0) H 09/27/16 08:15 Calcium 8.7 mg/dL (8.6-10.3) 09/28/16 04:40 Total Bilirubin 0.7 mg/dL (0.3-1.0) 09/26/16 16:00 AST 39 U/L (13-39) 09/26/16 16:00 ALT 28 U/L (7-52) 09/26/16 16:00 Alkaline Phosphatase 94 U/L (34-104) 09/26/16 16:00 Troponin I 0.03 ng/mL (0.01-0.05) 09/26/16 16:00 Total Protein 7.2 gm/dL (6.0-8.3) 09/26/16 16:00 Albumin 4.1 gm/dL (4.2-5.5) L 09/26/16 16:00 Globulin 3.1 gm/dL 09/26/16 16:00 Albumin/Globulin Ratio 1.3 (1.0-1.8) 09/26/16 16:00 Triglycerides 218 mg/dL (<150) H 09/26/16 16:19 Cholesterol 179 mg/dL (<200) 09/26/16 16:19 LDL Cholesterol Direct 118 mg/dL (75-193) 09/26/16 16:19 HDL Cholesterol 48 mg/dL (23-92) 09/26/16 16:19 TSH 2.90 uIU/ml (0.34-5.60) 09/26/16 16:19 RPR NONREACTIVE (NONREACTIVE) 09/26/16 16:19 - Physical Exam Vitals and I&O: Vital Signs Temp 98.7 F 09/28/16 15:32 Pulse 98 09/28/16 15:32 Resp 18 09/28/16 15:32 BP 115/80 09/28/16 15:32 Pulse Ox 96 09/28/16 16:00 Intake & Output 09/27/16 09/28/16 09/28/16 18:59 06:59 18:59 Intake Total 946.499 500 Output Total 700 300 Balance 246.499 200 Intake: Intake, IV Amount 96.499 Diltiazem 125 mg In 96.499 Dextrose 5% 100 ml @ Per Protocol IV TITR [facility]UDETTE Rx#: [id number] Oral 850 500 Output: Urine 700 300 Other: # Voids 3 2 # Bowel Movements 3 1 Stool Characteristics Soft Liquid Brown Active Medications: Current Medications Buspirone HCl (Buspar) 10 mg PO DAILY [facility] PRN Reason: Protocol Stop: 11/26/16 08:59 Carvedilol (Coreg) 25 mg PO BID [facility] Stop: 11/26/16 08:59 Last Admin: 09/28/16 09:43 Dose: 25 mg Enoxaparin Sodium 80 mg/ (Enoxaparin Sodium 30 mg) 110 mg SUBQ Q12H [facility] Stop: 11/26/16 09:59 Last Admin: 09/28/16 10:00 Dose: 110 mg Diltiazem HCl 125 mg/ Dextrose 125 mls @ 0 mls/hr IV TITR CLAUDETTE; Per Protocol PRN Reason: Protocol Stop: 11/25/16 18:29 Last Titration: 09/27/16 18:22 Dose: 0 mg/h, 0 mls/hr Ibuprofen (Motrin) 600 mg PO TID [facility] Stop: 11/25/16 20:59 Last Admin: 09/28/16 14:00 Dose: Not Given Insulin Aspart (Novolog Insulin Sliding Scale) 0 units SUBQ Q6HR [facility] PRN Reason: Protocol Stop: 11/26/16 00:00 Last Admin: 09/28/16 12:54 Dose: Not Given Lisinopril (Zestril) 20 mg PO DAILY [facility] Stop: 11/26/16 08:59 Last Admin: 09/28/16 09:51 Dose: 20 mg Metformin HCl (Glucophage) 1,000 mg PO DAILY@0800 [facility] Stop: 11/26/16 07:59 Last Admin: 09/28/16 09:58 Dose: 1,000 mg Miscellaneous (Pharmacy To Dose) 1 ea [facility] PRN [facility] Stop: 11/25/16 22:44 Temazepam (Restoril) 15 mg PO HS PRN; Protocol PRN Reason: Insomnia Stop: 11/26/16 17:34 Last Admin: 09/27/16 21:04 Dose: 15 mg General: Alert, Oriented x3, Cooperative, No acute distress HEENT: Atraumatic, PERRLA, EOMI Neck: Supple Cardiovascular: Other (tachycardia ) Abdomen: Bowel sounds, Soft Assessment/Plan - Problem List Patient Problems: All Active Problems TACHYCARDIA WHILE AT PMD OFFICE (Acute) - Assessment Assessment: atrial fibrillation/flutter hx HTN hx CAD hx Diabetes hx Arthritis - Plan Plan: Continue with Cardizem Cardiac monitoring Monitor vitals LABS Dr. Hunter consult
[2016-09-28] MEDS ORDERED: Diphenoxylate/Atropine 2.5mg Tab PO PRN (19:05)
--- NOTE | 2016-09-28 20:04 | Cardiology ---
09/27/[address] Smith. M-MODE ECHOCARDIOGRAM: Mitral valve, anterior leaflet of mitral valve shows normal excursion, EF velocity. Posterior leaflet of the mitral valve shows normal excursion. Left ventricular posterior wall shows increased thickness, normal excursion. Interventricular septum shows increased thickness, normal excursion, hypertrophy of the left ventricle, ejection fraction 55%. Left atrium enlarged 4.3 cm. Aortic root shows normal dimension, normal excursion of aortic leaflets. CONCLUSION: Hypertrophy of the left ventricle. Left atrial enlargement and ejection fraction 50%. 2D ECHO: Long axis view showed normal-sized left ventricle with hypertrophy of the left ventricle. Left atrium enlarged. Aortic root shows normal dimension, of aortic leaflets. Short axis view of mitral valve normal. Short axis view of aortic valve normal. Apical four-chamber view shows normal-sized left ventricle with hypertrophy of the left ventricle. Left atrium enlarged right ventricular cavity, right atrium normal, and no pericardial effusion. CONCLUSION: Hypertrophy of the left ventricle. Left atrial enlargement, and ejection fraction 50%. Doppler study shows prominent A wave consistent with poor compliance of left ventricle. Moderate mitral regurgitation and mild aortic regurgitation. JOB# [id number]
--- NOTE | 2016-09-28 21:41 | Consultation ---
DATE OF CONSULTATION: 09/27/2016 The patient is a patient of Dr. Smith. HISTORY AND PHYSICAL: This is a 71-year-old male patient who had been complaining of palpitation. Following this the patient came to the Emergency Room. The patient was found to have uncontrolled atrial flutter fibrillation and the patient is admitted to ICU on Cardizem drip. PAST MEDICAL HISTORY: Hypertension, diabetes, stable angina and iron-deficiency anemia. FAMILY HISTORY: Unremarkable. SOCIAL HISTORY: No history of smoking or alcohol abuse. ALLERGIES: No known allergies. PHYSICAL EXAMINATION: VITAL SIGNS: Blood pressure 130/80, pulse 150 regular and respirations 20. HEAD: Normocephalic. No lumps or bumps. EYES: Pupils equal, reactive to light. Fundi show AV nicking, sclerae white, conjunctivae pink. NECK: Carotid 2+. Normal upstroke. JVD flat. Thyroid not palpable. Lymph nodes not palpable. CHEST: Shows increased AP diameter. No kyphosis or scoliosis. LUNGS: Bilateral bronchovesicular breath sounds, occasional wheeze noted. HEART: PMI fifth intercostal space with lateral to midclavicular line. S1, S2, S3, S4. S1 irregular. Systolic murmur, grade 2/6, lower left sternal border without radiation. ABDOMEN: Soft. Liver and spleen not palpable. No organomegaly. Bowel sounds active. NEUROLOGIC: Unremarkable. EXTREMITIES: Peripheral pulses 1+. No pedal edema. CLINICAL IMPRESSION: Atrial flutter, hypertension, diabetes mellitus type 2, stable angina and iron-deficiency anemia. PLAN: The patient will be started on anticoagulation and continue Cardizem. JOB# [id number]
[2016-09-29] MEDS: INSULIN ASPART SLIDING SCALE 100 UNITS/ML UNIT SUBQ SCH ×3 (00:47→12:37)
[2016-09-29 05:44] LABS: ANION GAP 8.2 (7.0-16.0); BUN - UREA NITROGEN 30 mg/dL (7-25); BUN/CREATININE RATIO 33.3; CALCIUM SERUM 9.1 mg/dL (8.6-10.3); CARBON DIOXIDE 30.1 mEq/L (21.0-31.0); CHLORIDE 98 mEq/L (98-107); CREATININE - SERUM 0.9 mg/dL (0.7-1.3); GLUCOSE 132 mg/dL (70-105); POTASSIUM SERUM 4.3 mEq/L (3.5-5.1); SODIUM SERUM 132 mEq/L (136-145)
--- NOTE | 2016-09-29 14:31 | General Progress Note ---
Subjective - Review of Systems Subjective: Denies any chest pain or sob No acute distress Objective - Results Result Diagrams: 09/28/16 04:40 09/29/16 04:19 Recent Labs: Laboratory Last Values WBC 9.3 Th/cmm (4.8-10.8) D 09/28/16 04:40 RBC 3.95 Mil/cmm (3.80-5.80) 09/28/16 04:40 Hgb 12.7 gm/dL (12.6-17.4) 09/28/16 04:40 Hct 37.1 % (39.0-49.0) L 09/28/16 04:40 MCV 93.9 fl (80-99) 09/28/16 04:40 MCH 32.1 pg (27.0-31.0) H 09/28/16 04:40 MCHC Differential 34.2 pg (28.0-36.0) 09/28/16 04:40 RDW 12.2 % (11.5-20.0) 09/28/16 04:40 Plt Count 196 Th/cmm (150-400) 09/28/16 04:40 MPV 8.9 fl 09/28/16 04:40 Neutrophils % 63.3 % (40.0-80.0) 09/28/16 04:40 Lymphocytes % 23.0 % (20.0-50.0) 09/28/16 04:40 Monocytes % 10.5 % (2.0-10.0) H 09/28/16 04:40 Eosinophils % 2.7 % (0.0-5.0) 09/28/16 04:40 Basophils % 0.5 % (0.0-2.0) 09/28/16 04:40 PT 10.5 SECONDS (9.5-11.5) 09/26/16 16:19 INR 1.01 (0.5-1.4) 09/26/16 16:19 PTT (Actin FS) 23.1 SECONDS (26.0-38.0) L 09/26/16 16:19 Sodium 132 mEq/L (136-145) L 09/29/16 04:19 Potassium 4.3 mEq/L (3.5-5.1) 09/29/16 04:19 Chloride 98 mEq/L (98-107) 09/29/16 04:19 Carbon Dioxide 30.1 mEq/L (21.0-31.0) 09/29/16 04:19 Anion Gap 8.2 (7.0-16.0) 09/29/16 04:19 BUN 30 mg/dL (7-25) H 09/29/16 04:19 Creatinine 0.9 mg/dL (0.7-1.3) 09/29/16 04:19 Est GFR ( Amer) TNP 09/29/16 04:19 Est GFR (Non-Af Amer) TNP 09/29/16 04:19 BUN/Creatinine Ratio 33.3 09/29/16 04:19 Glucose 132 mg/dL (70-105) H 09/29/16 04:19 POC Glucose 152 MG/DL (70 - 105) H 09/29/16 05:35 Hemoglobin A1c % 6.7 % (4.0-6.0) H 09/27/16 08:15 Calcium 9.1 mg/dL (8.6-10.3) 09/29/16 04:19 Total Bilirubin 0.7 mg/dL (0.3-1.0) 09/26/16 16:00 AST 39 U/L (13-39) 09/26/16 16:00 ALT 28 U/L (7-52) 09/26/16 16:00 Alkaline Phosphatase 94 U/L (34-104) 09/26/16 16:00 Troponin I 0.03 ng/mL (0.01-0.05) 09/26/16 16:00 B-Natriuretic Peptide 158.0 pg/mL (5.0-100.0) H 09/29/16 04:19 Total Protein 7.2 gm/dL (6.0-8.3) 09/26/16 16:00 Albumin 4.1 gm/dL (4.2-5.5) L 09/26/16 16:00 Globulin 3.1 gm/dL 09/26/16 16:00 Albumin/Globulin Ratio 1.3 (1.0-1.8) 09/26/16 16:00 Triglycerides 218 mg/dL (<150) H 09/26/16 16:19 Cholesterol 179 mg/dL (<200) 09/26/16 16:19 LDL Cholesterol Direct 118 mg/dL (75-193) 09/26/16 16:19 HDL Cholesterol 48 mg/dL (23-92) 09/26/16 16:19 TSH 2.90 uIU/ml (0.34-5.60) 09/26/16 16:19 RPR NONREACTIVE (NONREACTIVE) 09/26/16 16:19 - Physical Exam Vitals and I&O: Vital Signs Temp 96.8 F 09/29/16 08:00 Pulse 106 09/29/16 10:00 Resp 15 09/29/16 10:00 BP 108/58 09/29/16 10:00 Pulse Ox 98 09/29/16 10:00 Intake & Output 09/28/16 09/29/16 09/29/16 18:59 06:59 18:59 Intake Total 1200 Output Total 1400 Balance -200 Intake: Oral 1200 Output: Urine 1400 Other: # Bowel Movements 0 Active Medications: Current Medications Buspirone HCl (Buspar) 10 mg PO DAILY [facility] PRN Reason: Protocol Stop: 11/26/16 08:59 Last Admin: 09/29/16 11:51 Dose: 10 mg Carvedilol (Coreg) 25 mg PO BID [facility] Stop: 11/26/16 08:59 Last Admin: 09/29/16 08:25 Dose: 25 mg Diphenoxylate HCl/Atropine (Lomotil) 1 tab PO TID PRN PRN Reason: Diarrhea Stop: 11/27/16 19:04 Last Admin: 09/28/16 21:11 Dose: 1 tab Enoxaparin Sodium 80 mg/ (Enoxaparin Sodium 30 mg) 110 mg SUBQ Q12H [facility] Stop: 11/26/16 09:59 Last Admin: 09/29/16 11:58 Dose: 110 mg Diltiazem HCl 125 mg/ Dextrose 125 mls @ 0 mls/hr IV TITR CLAUDETTE; Per Protocol PRN Reason: Protocol Stop: 11/25/16 18:29 Last Titration: 09/27/16 18:22 Dose: 0 mg/h, 0 mls/hr Ibuprofen (Motrin) 600 mg PO TID [facility] Stop: 11/25/16 20:59 Last Admin: 09/29/16 08:24 Dose: 600 mg Insulin Aspart (Novolog Insulin Sliding Scale) 0 units SUBQ Q6HR [facility]TE PRN Reason: Protocol Stop: 11/26/16 00:00 Last Admin: 09/29/16 12:37 Dose: Not Given Lisinopril (Zestril) 20 mg PO DAILY [facility] Stop: 11/26/16 08:59 Last Admin: 09/29/16 08:24 Dose: 20 mg Metformin HCl (Glucophage) 1,000 mg PO DAILY@0800 [facility] Stop: 11/26/16 07:59 Last Admin: 09/29/16 08:24 Dose: 1,000 mg Miscellaneous (Pharmacy To Dose) 1 ea [facility] PRN [facility]TE Stop: 11/25/16 22:44 Temazepam (Restoril) 15 mg PO HS PRN; Protocol PRN Reason: Insomnia Stop: 11/26/16 17:34 Last Admin: 09/28/16 21:11 Dose: 15 mg General: Alert, Oriented x3, Cooperative, No acute distress HEENT: Atraumatic, PERRLA, EOMI Neck: Supple Cardiovascular: Other (Irregular rate) Lungs: Clear to auscultation Abdomen: Bowel sounds, Soft Assessment/Plan - Problem List Patient Problems: All Active Problems TACHYCARDIA WHILE AT PMD OFFICE (Acute) - Assessment Assessment: atrial fibrillation/flutter hx HTN hx CAD hx Diabetes hx Arthritis - Plan Plan: Continue with Cardizem Transfer to Telemetry Cardiac monitoring Monitor vitals LABS Dr. Hunter consult
--- NOTE | 2016-09-29 19:28 | Consultation ---
DATE OF CONSULTATION: 09/28/2016 The patient is a patient of Dr. Smith. HISTORY AND PHYSICAL: This is a 71-year-old male patient who was brought in to the Emergency Room complaining of shortness of breath, palpitation. In the Emergency Room, the patient was found to have atrial fibrillation, uncontrolled ventricular response. The patient was started on Cardizem drip, admitted to ICU and cardiology consult was requested. PAST MEDICAL HISTORY: Atrial fibrillation, hypertension, diabetes mellitus type 2, stable angina, arthritis, obesity and moderate mitral regurgitation. FAMILY HISTORY: Unremarkable. SOCIAL HISTORY: No history of smoking or alcohol abuse. ALLERGIES: No known allergies. PHYSICAL EXAMINATION: VITAL SIGNS: Blood pressure 130/80, pulse 120 regular and respirations 28. HEAD: Normocephalic. No lumps or bumps. EYES: Pupils equal, reactive to light. Fundi show AV nicking, sclerae white, conjunctivae pink. NECK: Carotid 2+. Normal upstroke. JVD flat. Thyroid not palpable. Lymph nodes not palpable. CHEST: Shows increased AP diameter. No kyphosis or scoliosis. LUNGS: Bilateral bronchovesicular breath sounds. Occasional wheeze. No rales. HEART: PMI fifth intercostal space with [id number] line. S1 irregular. S2, S3, S4 systolic murmur, grade 2/6, lower left sternal border without radiation. ABDOMEN: Soft. Liver and spleen not palpable. No organomegaly. Bowel sounds active. NEUROLOGIC: No focal neurological deficit. EXTREMITIES: Peripheral pulses 2+. No pedal edema. CLINICAL IMPRESSION: Atrial fibrillation, rate uncontrolled; hypertension; diabetes mellitus type 2; stable angina; arthritis; obesity and moderate mitral regurgitation. Echocardiogram showed hypertrophy of the left ventricle, left atrial enlargement, moderate mitral regurgitation, mild aortic regurgitation and ejection fraction 50%. PLAN: Admit the patient. We will continue present care, anticoagulate the patient and control the heart rate. JOB# [id number]
--- NOTE | 2016-10-01 16:19 | Discharge Summary ---
DATE OF DISCHARGE: 09/29/2016 COURSE OF HOSPITAL TREATMENT: The patient is walk-in from home through the Emergency Room with chief complaint of palpitations. From the Emergency Room, the patient was found to have uncontrolled atrial fibrillation and atrial flutter, on which the patient initially ____ started with Cardizem drip. The patient was then admitted to intensive care unit for closer monitoring and after ____, patient's heart rate was stabilized and the patient was discharged to home with instruction to follow up with Dr. Smith and also to follow up with the primary care provider. Stable condition upon discharge. JOB# [id number]
== END 2016-09-29 18:45 | DRG 309 ==
LOC: ER 15:54 → TELE 17:43 → ICU 18:17
PROVIDERS: ADMIT Internal Medicine; ATTEND Internal Medicine
DX: I48.92 Unspecified atrial flutter (principal); E87.1 Hypo-osmolality and hyponatremia; E11.9 Type 2 diabetes mellitus without complications; I11.9 Hypertensive heart disease without heart failure; I08.0 Rheumatic disorders of both mitral and aortic valves; D50.9 Iron deficiency anemia, unspecified; I48.91 Unspecified atrial fibrillation; M19.90 Unspecified osteoarthritis, unspecified site; I25.119 Atherosclerotic heart disease of native coronary artery with unspecified angina pectoris; E66.9 Obesity, unspecified; Z68.36 Body mass index [BMI] 36.0-36.9, adult; Z88.0 Allergy status to penicillin
CPT/HCPCS: 36415-UA; 71010-TC; 80048-TC; 80053-TC; 80061-TC; 82948-90; 83036-90; 83880-TC; 84443-TC; 84484-TC; 85025-TC; 85610-TC; 85730-TC; 86592-TC; 90779; 93005; 96374; 96375; 96379; J0696; J1650; J1815; J7040; Z7610

== ENCOUNTER 2017-08-30 07:48 | Emergency (ER) | payer OTHER ==
[2017-08-30] MEDS ORDERED: NITROGLYCERIN OINT 2% 1 INCH PACKET TP STA (08:06)
[2017-08-30] MEDS ORDERED: NITROGLYCERIN OINT 2% 1 INCH PACKET TP ONE (08:37)
[2017-08-30 08:38] LABS: % BASOPHILS 0.5 % (0.0-2.0); % EOSINOPHILS 4.7 % (0.0-5.0); % LYMPHOCYTES 28.5 % (20.0-50.0); % MONOCYTES 8.7 % (2.0-10.0); % NEUTROPHILS 57.6 % (40.0-80.0); EOSINOPHILE ABSOLUTE 0.4 Th/cmm (0.1-0.4); HEMATOCRIT 38.7 % (41.0-60); HEMOGLOBIN 13.3 gm/dL (12-16); LYMPHOCYTE ABSOLUTE 2.2 Th/cmm (1.5-3.0); MEAN CELL VOLUME 97.1 fl (80-99); MEAN CORPUSCULAR HEMOGLOBIN 33.5 pg (27.0-31.0); MEAN CORPUSCULAR HGB CONC 34.5 pg (28.0-36.0); MEAN PLATELET VOLUME 8.8 fl; MONOCYTE ABSOLUTE 0.7 Th/cmm (0.3-1.0); NEUTROPHILE ABSOLUTE 4.4 Th/cmm (1.8-8.0); PLATELET COUNT 205 Th/cmm (150-400); RED BLOOD COUNT 3.99 Mil/cmm (3.80-5.80); RED CELL DISTRIBUTION WIDTH 11.6 % (11.5-20.0); WHITE BLOOD COUNT 7.7 Th/cmm (4.8-10.8)
--- NOTE | 2017-08-30 08:53 | Diagnostic Imaging Report ---
CHEST X-RAY: AP view INDICATION: Chest pain COMPARISON: 09/26/2016 FINDINGS: Suboptimal lung volumes are seen with bronchovascular crowding increased bibasilar lung markings. No focal consolidation identified. There is a small left effusion. Mild cardiomegaly is noted. Degenerative changes of the spine are noted. IMPRESSION: Suboptimal lung volume with increased bibasal lung markings favoring atelectatic changes. No focal consolidation identified. Small left effusion. Please correlate with clinical findings. Mild cardiomegaly. Short-term follow-up PA and lateral chest x-ray is recommended.
[2017-08-30 08:54] LABS: ALB/GLOB RATIO 1.4 (1.0-1.8); ALBUMIN 3.9 gm/dL (4.2-5.5); ALKALINE PHOSPHATASE 89 U/L (34-104); ANION GAP 9.8 (7.0-16.0); BILIRUBIN,TOTAL 0.6 mg/dL (0.3-1.0); BUN - UREA NITROGEN 35 mg/dL (7-25); CALCIUM SERUM 9.4 mg/dL (8.6-10.3); CARBON DIOXIDE 25.3 mEq/L (21.0-31.0); CHLORIDE 102 mEq/L (98-107); CHOLESTEROL 190 mg/dL (<200); CREATININE - SERUM 1.2 mg/dL (0.7-1.3); GLUCOSE 192 mg/dL (70-105); HDL -HIGH DENSITY LIPOPROTEIN 45 mg/dL (23-92); POTASSIUM SERUM 5.1 mEq/L (3.5-5.1); SGOT 31 U/L (13-39); SGPT/ALT 26 U/L (7-52); SODIUM SERUM 132 mEq/L (136-145); TOTAL PROTEIN,SERUM 6.7 gm/dL (6.0-8.3); TRIGLYCERIDES 227 mg/dL (<150)
[2017-08-30 08:57] LABS: INR 1.08 (0.5-1.4); PROTHROMBIN TIME (TEST) 11.2 SECONDS (9.5-11.5)
--- NOTE | 2017-08-30 10:19 | ED Physician Chart ---
ED Chief Complaint/HPI - Patient Information Date Seen:: 08/30/17 Time Seen:: 08:00 Chief Complaint:: Abnormal Labs History of Present Illness:: pt was sent to ER by PMD for re-checks of recent abnormal laboratory tests; pt has no complaints; pt denies trauma, H/As, S/T, visual or gait changes, neck pain, C/P, SOB, cough, Abd. 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; pt admits that he ran out of Lasix tablets 4 days ago Allergies:: Allergies Allergy/AdvReac Type Severity Reaction Status Date / Time Penicillins Allergy Verified 09/26/16 16:19 Vitals:: Vital Signs - 8 hr 08/30/17 08/30/17 08/30/17 08:05 08:39 10:07 Temp 98 F 98.1 F HR 60 54 64 RR 16 18 BP 206/101 197/73 195/86 O2 Sat % 98 97 Historian:: Patient, Family Member Review:: Nurse's Note Reviewed ED Review of Systems - Review of Systems General/Constitutional: No fever, No chills, No weight loss, No weakness, No diaphoresis, No edema, No loss of appetite Skin: No skin lesions, No rash, No bruising Head: No headache, No light-headedness Eyes: No loss of vision, No pain, No diplopia ENT: No earache, No nasal drainage, No sore throat, No tinnitus Neck: No neck pain, No swelling, No thyromegaly, No stiffness, No mass noted Cardio Vascular: No chest pain, No palpitations, No PND, No orthopnea, No edema Pulmonary: No SOB, No cough, No sputum, No wheezing GI: No nausea, No vomiting, No diarrhea, No pain, No melena, No hematochezia, No constipation, No hematemesis G/U: No dysuria, No frequency, No hematuria, No nacturia Musculoskeletal: No bone or joint pain, No back pain, No muscle pain Endocrine: No polyuria, No polydipsia Psychiatric: No prior psych history, No depression, No anxiety, No suicidal ideation, No homicidal ideation, No auditory hallucination, No visual hallucination Hematopoietic: No bruising, No lymphadenopathy Allergic/Immuno: No urticaria, No angioedema Neurological: No syncope, No focal symptoms, No weakness, No paresthesia, No headache, No seizure, No dizziness, No confusion, No vertigo ED Past Medical History - Past Medical History Obtainable: Yes Past Medical History: HTN, DM Family History: Diabetes Melitus, HTN Social History: Non Smoker, No Alcohol, No Drug Use, Surgical History: None Psychiatricy History: None Medication: Reviewed Family Medical History - Family Member Mother History Unknown: Yes ED Physical Exam - Physical Examination General/Constitutional: Awake, Well-developed, well-nourished, Alert, No distress, GCS 15, Non-toxic appearing, Ambulatory Head: Atraumatic Eyes: Lids, conjuctiva normal, PERRL, EOMI Other Eyes comments:: PERRLA; Fumdi: benign; EOMs: WNL Skin: Nl inspection, No rash, No skin lesions, No ecchymosis, Well hydrated, No lymphadenopathy ENMT: External ears, nose nl, TM canals nl, Nasal exam nl, Lips, teeth, gums nl , Oropharynx nl, Tonsils nl Neck: Nontender, Full ROM w/o pain, No JVD, No nuchal rigidity, No bruit, No mass, No stridor Other Neck comments:: supple; no meningeal signs; no cervical tenderness; no bruits Respiratory: Nl effort/Exclusion, Clear to Auscultation, No Wheeze/Rhonchi/Rales Cardio Vascular: RRR, No murmur, gallop, rubs, NL S1 S2, Carotid/Femoral/Distal pulses equal bilaterally GI: No tenderness/rebounding/guarding, No organomegaly, No hernia, Normal BS's, Nondistended, No mass/bruits, No McBurney tenderness Other GI comments:: no pulsatile masses : No CVA tenderness Extremities: No tenderness or effusion, Full ROM, normal strength in all extremities, No edema, Normal digits & nails Neuro/Psych: Alert/oriented, DTR's symmetric, Normal sensory exam, Normal motor strength, Judgement/insight normal, Mood normal, Normal gait, No focal deficits Misc: Normal back, No paraspinal tenderness ED Labs/Radiology/EKG Results - Lab Results Results: Laboratory Tests 08/30/17 08/30/17 08/30/17 08:28 08:28 08:28 WBC 7.7 RBC 3.99 Hgb 13.3 Hct 38.7 L MCV 97.1 MCH 33.5 H MCHC Differential 34.5 RDW 11.6 Plt Count 205 MPV 8.8 Neutrophils % 57.6 Lymphocytes % 28.5 Monocytes % 8.7 Eosinophils % 4.7 Basophils % 0.5 PT 11.2 INR 1.08 Sodium 132 L Potassium 5.1 Chloride 102 Carbon Dioxide 25.3 Anion Gap 9.8 BUN 35 H Creatinine 1.2 Est GFR ( Amer) TNP Est GFR (Non-Af Amer) TNP BUN/Creatinine Ratio 29.2 Glucose 192 H Calcium 9.4 Total Bilirubin 0.6 AST 31 ALT 26 Alkaline Phosphatase 89 Creatine Kinase Troponin I B-Natriuretic Peptide Total Protein 6.7 Albumin 3.9 L Globulin 2.8 Albumin/Globulin Ratio 1.4 Triglycerides 227 H Cholesterol 190 LDL Cholesterol Direct 117 HDL Cholesterol 45 08/30/17 08/30/17 08/30/17 08:28 08:28 08:28 WBC RBC Hgb Hct MCV MCH MCHC Differential RDW Plt Count MPV Neutrophils % Lymphocytes % Monocytes % Eosinophils % Basophils % PT INR Sodium Potassium Chloride Carbon Dioxide Anion Gap BUN Creatinine Est GFR ( Amer) Est GFR (Non-Af Amer) BUN/Creatinine Ratio Glucose Calcium Total Bilirubin AST ALT Alkaline Phosphatase Creatine Kinase 84 Troponin I < 0.01 L B-Natriuretic Peptide 141.0 H Total Protein Albumin Globulin Albumin/Globulin Ratio Triglycerides Cholesterol LDL Cholesterol Direct HDL Cholesterol Comments:: BUN: 35; Na+: 132; Glucose: 192; K+: 5.1; BNP: 141; otherwise unremarkable - Radiology Results Comments:: small left pleural effusion; NAD - EKG Interpretations EKG Time:: 08:06 Rate & Rhythm: 57; SB Comments:: RBBB; non-specific st-t changes ED Septic Shock - . Is Septic Shock (SBP<90, OR Lactate>4 mmol\L) present?: No - <6hrs of presentation: Vital Signs: Vital Signs - 8 hr 08/30/17 08/30/17 08/30/17 08:05 08:39 10:07 Temp 98 F 98.1 F HR 60 54 64 RR 16 18 BP 206/101 197/73 195/86 O2 Sat % 98 97 ED Reassessment (Disposition) - Reassessment Reassessment:: pt improved; pt chose to sign out AMA due to refusing further ER treatment for HTN/ high blood pressure; pt is asymptomatic upon discharge Reassessment Condition:: Improved - Diagnosis Diagnosis:: Diabetes Mellitus; Uncontrolled HTN; Hypertension; Hyperkalemia; Hyponatremia; Dehydration; Medication Noncompliance; Obesity; CHF; Hyperglycemia; Abnormal Labs - Aftercare/Follow up Instructions Aftercare/Follow-Up Instructions:: Counseled pt regarding lab results/diagnosis & need follow up, Refer to Discharge Instructions, Counseled pt & family regarding lab results/diagnosis & need follow up Medication Prescribed:: Be compliant with all medications, ADA/GAGE Diet; and activity prescribed by PMD ; Have Blood Pressure re-checked by PMD ANDREA today - Patient Disposition Discharge/Transfer:: Against Medical Advice Condition at Disposition:: Stable, Improved (RTER prn if existing s/s reoccur and/or get worse and/or any other new s/s occur; X-Rays Instructions; Lab Instructions; ACIs given for all above Dx; Refer to Loan Operations Manager/Project Management ANDREA ; F/U with PMD in one day or prn; RTER prn if concerned)
[2017-08-30 16:59] LABS: A1C % 6.6 % (4.0-6.0)
== END 2017-08-30 10:05 | disposition left against medical advice (07) ==
LOC: ER 07:48
DX: E11.65 Type 2 diabetes mellitus with hyperglycemia (principal); I11.0 Hypertensive heart disease with heart failure; I50.9 Heart failure, unspecified; E78.5 Hyperlipidemia, unspecified; E87.1 Hypo-osmolality and hyponatremia; E86.0 Dehydration
CPT/HCPCS: 36415-UA; 71045-TC; 80053-TC; 80061-TC; 82550-TC; 83036-90; 83880-TC; 84484-TC; 85025-TC; 85610-TC; 93005; 94760

== ENCOUNTER 2017-11-24 15:39 | Inpatient (IN) | payer OTHER ==
--- NOTE | 2017-11-24 16:27 | ED Physician Chart ---
ED Chief Complaint/HPI - Patient Information Date Seen:: 11/24/17 Time Seen:: 16:12 Chief Complaint:: Generalized weakness, failure to thrive History of Present Illness:: 72 yo male was brought by ambulance from home to ER due to generalized weakness , difficulty walking, unsteady gait for 1 week. Patient could not stand today. He had multiple medical conditions including obesity, DM II, hypertension, CHF. Patient had bilateral lower extremities edema for 3 weeks. 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 Patient had bilateral knee DJD for 1 year, left worse than right. Due to his CHF, no surgery was performed. Patient also had tremor of bilateral hands and right lower extremity for a few years. No diagnosis of Parkinson's disease had been made. Allergies:: Allergies Allergy/AdvReac Type Severity Reaction Status Date / Time Penicillins Allergy Verified 09/26/16 16:19 Vitals:: Vital Signs - 8 hr 11/24/17 16:02 Temp 96.4 F HR 78 RR 16 BP 109/61 O2 Sat % 95 ED Review of Systems - Review of Systems General/Constitutional: No fever Skin: Skin lesions Head: No headache Eyes: No pain ENT: No nasal drainage Neck: Neck pain Cardio Vascular: No chest pain Pulmonary: No SOB GI: No nausea, No vomiting Musculoskeletal: Bone or joint pain Neurological: Weakness ED Past Medical History - Past Medical History Past Medical History: HTN, DM, CHF, Dyslipidemia, Arthritis (bilateral knee DJD) , Other (Atrial fibrillation, tremor) Social History: Non Smoker, Alcohol, No Drug Use Surgical History: None Family Medical History - Family Member Mother History Unknown: Yes ED Physical Exam - Physical Examination General/Constitutional: Awake Head: Atraumatic Eyes: PERRL Other Skin comments:: Bilateral anterior tibia skin abrasions Neck: No nuchal rigidity Other Respiratory comments:: Diminished lung sound Cardio Vascular: RRR, No murmur, gallop, rubs, NL S1 S2 Other GI comments:: distended Other Extremities comments:: 2+ edema BLE Neuro/Psych: Alert/oriented ED Labs/Radiology/EKG Results - Radiology Results Results: CXR: cardiomegaly, no focal consolidation - EKG Interpretations EKG Time:: 16:41 Rate & Rhythm: 72 bpm, sinus rhythm [place]: Normal P axis Intervals: Prolonged [place] intervals Comments:: Right bundle branch block, peaked T waves ED Assessment - Assessment General Assessment: Hyperkalemia Acute renal failure Hyponatremia Hypertension DM II CHF Assessment/Comments:: CBC, CMP, Trop I, BUN, UA CXR, EKG Kayexalate 30 mg PO x 2 Calcium Chloride 1g IV Sodium Bicarb 50 mEq IV Insulin 5 units IV D50W 50 ml Albuterol 10 mg Neb Admit to ICU ED Septic Shock - . Is Septic Shock (SBP<90, OR Lactate>4 mmol\L) present?: No - <6hrs of presentation: Vital Signs: Vital Signs - 8 hr 11/24/17 16:02 Temp 96.4 F HR 78 RR 16 BP 109/61 O2 Sat % 95 ED Reassessment (Disposition) - Reassessment Reassessment Condition:: Improved - Patient Disposition Discharge/Transfer:: Acute Care w/in this [facility] Admitting Medical Physician:: Veronica Saleh ED Discharge Plan - Patient Disposition Admit/Discharge/Transfer: Acute Care w/in this hosp
[2017-11-24 17:00] LABS: % BASOPHILS 0.4 % (0.0-2.0); % EOSINOPHILS 0.5 % (0.0-5.0); % LYMPHOCYTES 10.6 % (20.0-50.0); % MONOCYTES 6.9 % (2.0-10.0); % NEUTROPHILS 81.6 % (40.0-80.0); HEMATOCRIT 35.8 % (41.0-60); HEMOGLOBIN 12.2 gm/dL (12-16); MEAN CORPUSCULAR HEMOGLOBIN 32.9 pg (27.0-31.0); MEAN CORPUSCULAR HGB CONC 33.9 pg (28.0-36.0); MEAN PLATELET VOLUME 7.9 fl; MONOCYTE ABSOLUTE 0.7 Th/cmm (0.3-1.0); NEUTROPHILE ABSOLUTE 7.9 Th/cmm (1.8-8.0); PLATELET COUNT 237 Th/cmm (150-400); RED BLOOD COUNT 3.69 Mil/cmm (3.80-5.80); RED CELL DISTRIBUTION WIDTH 11.8 % (11.5-20.0); WHITE BLOOD COUNT 9.6 Th/cmm (4.8-10.8)
[2017-11-24 17:12] LABS: INR 1.02 (0.5-1.4); PROTHROMBIN TIME (TEST) 10.6 SECONDS (9.5-11.5)
[2017-11-24 17:16] LABS: ALB/GLOB RATIO 1.4 (1.0-1.8); ALBUMIN 4.1 gm/dL (4.2-5.5); ALKALINE PHOSPHATASE 80 U/L (34-104); ANION GAP 21.8 (7.0-16.0); BILIRUBIN,TOTAL 0.4 mg/dL (0.3-1.0); CALCIUM SERUM 8.8 mg/dL (8.6-10.3); CARBON DIOXIDE 14.7 mEq/L (21.0-31.0); CHLORIDE 98 mEq/L (98-107); GLUCOSE 103 mg/dL (70-105); SGOT 40 U/L (13-39); SGPT/ALT 23 U/L (7-52); SODIUM SERUM 127 mEq/L (136-145); TOTAL PROTEIN,SERUM 7.1 gm/dL (6.0-8.3)
[2017-11-24 17:21] LABS: URINE MICROSCOPIC INDICATED? YES; URINE SOURCE RANDOM
[2017-11-24 17:22] LABS: URINE BILIRUBIN NEGATIVE (NEGATIVE); URINE BLOOD TRACE (NEGATIVE); URINE GLUCOSE (UA) NEGATIVE (NEGATIVE); URINE KETONE NEGATIVE (NEGATIVE); URINE LEUKOCYTE ESTERASE NEGATIVE (NEGATIVE); URINE NITRATE NEGATIVE (NEGATIVE); URINE PH 5.5 (4.6 - 8.0); URINE PROTEIN NEGATIVE (NEGATIVE); URINE UROBILINOGEN 0.2 E.U./dL (0.2 - 1.0)
[2017-11-24 17:26] LABS: URINE CLARITY CLEAR (CLEAR); URINE COLOR YELLOW
[2017-11-24 17:30] LABS: URINE BACTERIA NONE SEEN /hpf (NONE SEEN); URINE EPITHELIAL CELLS FEW /lpf (FEW); URINE RBC 0-2 /hpf (0-5)
[2017-11-24 17:35] LABS: BUN - UREA NITROGEN 99 mg/dL (7-25); CREATININE - SERUM 6.5 mg/dL (0.7-1.3); POTASSIUM SERUM 7.5 mEq/L (3.5-5.1)
[2017-11-24] MEDS ORDERED: Albuterol Nebulizer 2.5mg/3mL HHN STA (19:11)
[2017-11-24] MEDS ORDERED: Calcium Chloride 10% 100 mg/mL 10mL Abboject ONE (19:16)
[2017-11-24] MEDS ORDERED: Dextrose 50% 50 mL Abboject IVP STA (19:20)
[2017-11-24] MEDS ORDERED: INSULIN HUMAN REGULAR 100 UNITS/ML UNIT IV ONE (19:22)
[2017-11-24] MEDS ORDERED: INSULIN HUMAN REGULAR 100 UNITS/ML UNIT SUBQ ONE (19:25)
[2017-11-24] MEDS ORDERED: INSULIN HUMAN REGULAR 100 UNITS/ML UNIT ONE (19:40)
[2017-11-24] MEDS ORDERED: Dextrose 50% 50 mL Abboject IVP ONE (19:42)
[2017-11-24] MEDS ORDERED: Albuterol/Ipratropium Neb 3 ML AERS HHN ONE (19:50)
[2017-11-24] MEDS ORDERED: Albuterol Nebulizer 2.5mg/3mL HHN ONE (19:51)
[2017-11-24] MEDS ORDERED: Morphine Sulfate 4 mg/mL 1mL Syr IV STA (20:21)
[2017-11-24] MEDS ORDERED: Morphine Sulfate 4 mg/mL 1mL Syr ONE (20:24)
[2017-11-24 21:35] LABS: ALB/GLOB RATIO 1.3 (1.0-1.8); ALKALINE PHOSPHATASE 82 U/L (34-104); ANION GAP 19.4 (7.0-16.0); BILIRUBIN,TOTAL 0.4 mg/dL (0.3-1.0); CALCIUM SERUM 8.8 mg/dL (8.6-10.3); CARBON DIOXIDE 15.3 mEq/L (21.0-31.0); CHLORIDE 99 mEq/L (98-107); GLUCOSE 123 mg/dL (70-105); SGOT 40 U/L (13-39); SGPT/ALT 23 U/L (7-52); SODIUM SERUM 127 mEq/L (136-145); TOTAL PROTEIN,SERUM 7.1 gm/dL (6.0-8.3)
[2017-11-24 21:41] LABS: BUN - UREA NITROGEN 99 mg/dL (7-25); POTASSIUM SERUM 6.7 mEq/L (3.5-5.1)
[2017-11-24 21:42] LABS: CREATININE - SERUM 5.9 mg/dL (0.7-1.3)
--- NOTE | 2017-11-24 22:11 | History & Physical ---
ADMIT DATE: 11/24/2017 CHIEF COMPLAINT: Generalized weakness, weakness of lower extremities, multiple falls. HISTORY OF PRESENT ILLNESS: The patient is a 72-year-old male with long history of diabetes mellitus, hypertension, chronic atrial fibrillation, presented to the Emergency Room with multiple falls, generalized weakness. Initial workup significant for acute renal failure with severe hyperkalemia. The patient received his Kayexalate and calcium carbonate in the Emergency Room and admitted to the ICU. The patient denies any chest pain, any nausea, vomiting, fever or chills. The patient started on IV fluid and Nephrology consultation obtained. Cardiac consultation obtained. PAST MEDICAL HISTORY: Significant for hypertension, chronic atrial fibrillation, diabetes mellitus. PAST SURGICAL HISTORY: No recent surgery. ALLERGIES: PENICILLIN. MEDICATIONS: He is on metformin, lisinopril, Cardarone, sotalol. SOCIAL HISTORY: No smoking, no alcohol, no drugs. FAMILY HISTORY: Noncontributory. REVIEW OF SYSTEMS: RENAL SYSTEM: No history of chronic renal disorder. CARDIOVASCULAR: He has history of chronic atrial fibrillation, hypertension. ENDOCRINE: He has history of diabetes mellitus. No thyroid problem. GASTROINTESTINAL SYSTEM: No upper or lower gastrointestinal bleed. NEUROLOGICAL SYSTEM: No seizure disorder. SKELETOMUSCULAR: He has degenerative joint disease. PHYSICAL EXAMINATION: GENERAL: He is awake, alert, oriented, not in pain or distress. VITAL SIGNS: Temperature is 98.8, heart rate 67, blood pressure 106/62. HEENT: Normocephalic. Pupils reacting equally to light and accommodation. Sclerae clear. NECK: Supple. Negative for lymphadenopathy, JVD or bruit. CHEST: Bilaterally normal. No rhonchi or wheezing. HEART: S1, S2 normal. ABDOMEN: Soft, bowel sounds positive. EXTREMITIES: 1+ edema. SKIN: Multiple bruises on the lower extremities for mechanical fall. NEUROLOGIC: He is awake, alert, oriented. No focal motor or sensory deficits. LABORATORY DATA: White blood cell 9.6, hemoglobin 12.2, hematocrit 35.8, platelets 237. INR 1.02. Sodium 127, potassium is 6.7, BUN is 99, creatinine 5.9. Troponin less than 0.01. Glucose is 123. BNP is 83.2. ASSESSMENT: 1. Acute renal failure. 2. Severe hyperkalemia. 3. Diabetes mellitus. 4. Hypertension. 5. History of chronic atrial fibrillation. 6. Multiple falls. 7. Degenerative joint disease. PLAN: The patient in the ICU under Dr. Saleh's service, started on IV fluids, 1800 kilocalories diet, sliding scale with insulin coverage. Dr. Bourgeois and Dr. Jalil Hunter will consult on the case. CBC, CMP for tomorrow. I am going to give him another dose of Kayexalate tonight and check Chem-7 at midnight 12:00. The patient is a full code. Case discussed with the family at bedside. JOB# [id number]
[2017-11-24] MEDS ORDERED: Sodium Bicarbonate 8.4% 50mEq Vial ONE (22:19)
--- NOTE | 2017-11-24 22:35 | Consultation ---
Consult Note - Consult Note Service Date: 11/24/17 Referring Physician: Veronica Saleh Consult Note: PHYSICIAN Consultation Note: Date of Admission: 11/24/17 Purpose of Consultation: Chief Complaint: History of Present Illness: Patient ESME QUINTERO was admitted to location Intensive Care Unit with ACUTE RENAL FAILURE, SEVERE HYPERKALEMIA. Past Medical History: HTN DM AFIB Allergies Allergy/AdvReac Type Severity Reaction Status Date / Time Penicillins Allergy Verified 09/26/16 16:19 Vital Signs Temp 98.8 F 11/24/17 21:10 Pulse 67 11/24/17 21:10 Resp 14 11/24/17 21:10 BP 106/62 11/24/17 21:10 Pulse Ox 97 11/24/17 21:10 Intake & Output 11/24/17 11/24/17 11/25/17 06:59 18:59 06:59 Weight (lbs) 113.852 kg Other: Weight Source Estimated Laboratory Results - last 24 hr 11/24/17 11/24/17 11/24/17 16:36 16:50 16:50 WBC 9.6 RBC 3.69 L Hgb 12.2 Hct 35.8 L MCV 97.0 MCH 32.9 H MCHC Differential 33.9 RDW 11.8 Plt Count 237 MPV 7.9 Neutrophils % 81.6 H Lymphocytes % 10.6 L Monocytes % 6.9 Eosinophils % 0.5 Basophils % 0.4 PT 10.6 INR 1.02 PTT (Actin FS) 23.0 L Sodium Potassium Chloride Carbon Dioxide Anion Gap BUN Creatinine Est GFR ( Amer) Est GFR (Non-Af Amer) BUN/Creatinine Ratio Glucose Calcium Total Bilirubin AST ALT Alkaline Phosphatase Troponin I B-Natriuretic Peptide Total Protein Albumin Globulin Albumin/Globulin Ratio Urine Source RANDOM Urine Color YELLOW Urine Clarity CLEAR Urine pH 5.5 Ur Specific [place] 1.025 Urine Protein NEGATIVE Urine Glucose (UA) NEGATIVE Urine Ketones NEGATIVE Urine Blood TRACE Urine Nitrate NEGATIVE Urine Bilirubin NEGATIVE Urine Urobilinogen 0.2 Ur Leukocyte Esterase NEGATIVE Urine RBC 0-2 H Urine WBC 2-5 Ur Epithelial Cells FEW Urine Bacteria NONE SEEN 11/24/17 11/24/17 11/24/17 16:50 16:50 16:50 WBC RBC Hgb Hct MCV MCH MCHC Differential RDW Plt Count MPV Neutrophils % Lymphocytes % Monocytes % Eosinophils % Basophils % PT INR PTT (Actin FS) Sodium 127 L Potassium 7.5 H* Chloride 98 Carbon Dioxide 14.7 L Anion Gap 21.8 H BUN 99 H* Creatinine 6.5 H* Est GFR ( Amer) TNP Est GFR (Non-Af Amer) TNP BUN/Creatinine Ratio 15.2 Glucose 103 Calcium 8.8 Total Bilirubin 0.4 AST 40 H ALT 23 Alkaline Phosphatase 80 Troponin I < 0.01 L B-Natriuretic Peptide 83.2 Total Protein 7.1 Albumin 4.1 L Globulin 3.0 Albumin/Globulin Ratio 1.4 Urine Source Urine Color Urine Clarity Urine pH Ur Specific [place] Urine Protein Urine Glucose (UA) Urine Ketones Urine Blood Urine Nitrate Urine Bilirubin Urine Urobilinogen Ur Leukocyte Esterase Urine RBC Urine WBC Ur Epithelial Cells Urine Bacteria 11/24/17 21:10 WBC RBC Hgb Hct MCV MCH MCHC Differential RDW Plt Count MPV Neutrophils % Lymphocytes % Monocytes % Eosinophils % Basophils % PT INR PTT (Actin FS) Sodium 127 L Potassium 6.7 H* Chloride 99 Carbon Dioxide 15.3 L Anion Gap 19.4 H BUN 99 H* Creatinine 5.9 H* Est GFR ( Amer) TNP Est GFR (Non-Af Amer) TNP BUN/Creatinine Ratio 16.8 Glucose 123 H Calcium 8.8 Total Bilirubin 0.4 AST 40 H ALT 23 Alkaline Phosphatase 82 Troponin I B-Natriuretic Peptide Total Protein 7.1 Albumin 4.0 L Globulin 3.1 Albumin/Globulin Ratio 1.3 Urine Source Urine Color Urine Clarity Urine pH Ur Specific [place] Urine Protein Urine Glucose (UA) Urine Ketones Urine Blood Urine Nitrate Urine Bilirubin Urine Urobilinogen Ur Leukocyte Esterase Urine RBC Urine WBC Ur Epithelial Cells Urine Bacteria Home Medication Medication Instructions Recorded Type Carvedilol [Coreg] 25 mg PO BID 09/26/16 History Ibuprofen [Motrin*] 600 mg PO TID 09/26/16 History Lisinopril 40 mg PO DAILY 09/26/16 History Amiodarone [Cordarone] 1 tab PO DAILY 08/30/17 History Rivaroxaban [Xarelto] 1 tab PO DAILY 08/30/17 History Sotalol [Betapace] 1 tab PO DAILY 08/30/17 History Furosemide [Lasix] 40 mg PO DAILY 11/24/17 History metFORMIN [Glucophage] 500 mg PO DAILY 11/24/17 History Current Medications Generic Name Dose Route Start Last Admin Trade Name Freq PRN Reason Stop Dose Admin Amiodarone HCl 200 mg 11/25/17 09:00 Cordarone PO 01/24/18 08:59 DAILY [facility] Sodium Bicarbonate 50 meq/ 1,050 mls @ 500 mls/hr 11/24/17 19:15 Sodium Chloride IV 01/23/18 19:14 .[id number] CLAUDETTE Sodium Chloride 1,000 mls @ 75 mls/hr 11/24/17 21:45 Nacl 0.45% IV 01/23/18 21:44 .[id number] CLAUDETTE Insulin Aspart 0 units 11/25/17 07:30 Novolog Insulin Sliding Scale SUBQ 01/24/18 07:29 ACHS CLAUDETTE Protocol Miscellaneous 25 mg 11/25/17 09:00 Carvedilol [Coreg] PO 01/24/18 08:59 BID CLAUDETTE Rivaroxaban 15 mg 11/25/17 09:00 Xarelto PO 01/24/18 08:59 DAILY CLAUDETTE Sotalol HCl 80 mg 11/25/17 09:00 Betapace PO 01/24/18 08:59 DAILY CLAUDETTE Tramadol HCl 50 mg 11/24/17 21:35 Ultram PO 01/23/18 21:34 Q6HR PRN Leg Cramps Review of Systems: A 12 point ROS was reviewed with the pertinent positive and negatives noted in the HPI. Social History Smoking Status Never smoker Physical Exam: General: IN NO DISTRESS HEENT: [place] EOMI Neck: SUPPLE NO JVD Cardio: S1S2 IRRR Respiratory: CTA B/L Abdominal: SOFT OBESE Extremities: EDEMA Neurological: ALERT AND ORIENTED X3 Assessment: ARF HYPERKALEMIA HYPONATREMIA METABOLIC ACIDOSIS HTN DM TYPE 2 Plan: KAYEXLATE IVF RENAL US Signed, Froylan Bourgeois M.D. [id number]
[2017-11-24] MEDS: Sodium Chloride 0.45% 1,000 ML IV SCH (22:43)
[2017-11-24] MEDS ORDERED: Sodium Bicarbonate 8.4% 50mEq PFS IVP ONE (22:44)
[2017-11-25 00:39] LABS: ANION GAP 18.1 (7.0-16.0); CALCIUM SERUM 9.3 mg/dL (8.6-10.3); CARBON DIOXIDE 17.1 mEq/L (21.0-31.0); CHLORIDE 102 mEq/L (98-107); GLUCOSE 142 mg/dL (70-105); SODIUM SERUM 131 mEq/L (136-145)
[2017-11-25 00:41] LABS: POTASSIUM SERUM 6.2 mEq/L (3.5-5.1)
[2017-11-25 00:42] LABS: CREATININE - SERUM 5.4 mg/dL (0.7-1.3)
[2017-11-25 00:43] LABS: BUN - UREA NITROGEN 95 mg/dL (7-25)
[2017-11-25 05:09] LABS: % BASOPHILS 0.9 % (0.0-2.0); % LYMPHOCYTES 22.2 % (20.0-50.0); % MONOCYTES 12.7 % (2.0-10.0); % NEUTROPHILS 63.2 % (40.0-80.0); BASOPHILE ABSOLUTE 0.1 Th/cumm (0-0.2); EOSINOPHILE ABSOLUTE 0.1 Th/cmm (0.1-0.4); HEMATOCRIT 33.8 % (41.0-60); HEMOGLOBIN 11.6 gm/dL (12-16); MEAN CELL VOLUME 97.1 fl (80-99); MEAN CORPUSCULAR HEMOGLOBIN 33.2 pg (27.0-31.0); MEAN CORPUSCULAR HGB CONC 34.2 pg (28.0-36.0); MEAN PLATELET VOLUME 8.2 fl; MONOCYTE ABSOLUTE 1.1 Th/cmm (0.3-1.0); NEUTROPHILE ABSOLUTE 5.6 Th/cmm (1.8-8.0); PLATELET COUNT 206 Th/cmm (150-400); RED BLOOD COUNT 3.48 Mil/cmm (3.80-5.80); RED CELL DISTRIBUTION WIDTH 12.3 % (11.5-20.0); WHITE BLOOD COUNT 8.9 Th/cmm (4.8-10.8)
[2017-11-25 05:35] LABS: ALB/GLOB RATIO 1.3 (1.0-1.8); ALBUMIN 3.6 gm/dL (4.2-5.5); ALKALINE PHOSPHATASE 71 U/L (34-104); ANION GAP 16.5 (7.0-16.0); BILIRUBIN,TOTAL 0.4 mg/dL (0.3-1.0); CARBON DIOXIDE 19.3 mEq/L (21.0-31.0); CHLORIDE 105 mEq/L (98-107); GLUCOSE 139 mg/dL (70-105); POTASSIUM SERUM 4.8 mEq/L (3.5-5.1); SGOT 33 U/L (13-39); SGPT/ALT 20 U/L (7-52); SODIUM SERUM 136 mEq/L (136-145); TOTAL PROTEIN,SERUM 6.3 gm/dL (6.0-8.3)
[2017-11-25 06:34] LABS: BUN - UREA NITROGEN 88 mg/dL (7-25); CREATININE - SERUM 4.9 mg/dL (0.7-1.3)
[2017-11-25] MEDS: INSULIN ASPART SLIDING SCALE 100 UNITS/ML UNIT SUBQ SCH ×5 (06:57→21:16)
[2017-11-25] MEDS ORDERED: Non-Formulary Item 1 EA (Rivaroxaban [Xarelto] 1 TAB) PO SCH (09:00)
--- NOTE | 2017-11-25 09:09 | Diagnostic Imaging Report ---
Portable chest x-ray HISTORY: Shortness of breath The heart is enlarged. No focal pulmonary processes. No hilar or mediastinal abnormalities. IMPRESSION: 1. Cardiomegaly 2. No acute focal pulmonary processes
--- NOTE | 2017-11-25 09:16 | General Progress Note ---
Subjective - Review of Systems Service Date: 11/25/17 Subjective: pt in bed no distress had 4 bowel movements renal function and potassium better Objective - Results Result Diagrams: 11/25/17 04:50 11/25/17 04:50 Recent Labs: Laboratory Last Values WBC 8.9 Th/cmm (4.8-10.8) 11/25/17 04:50 RBC 3.48 Mil/cmm (3.80-5.80) L 11/25/17 04:50 Hgb 11.6 gm/dL (12-16) L 11/25/17 04:50 Hct 33.8 % (41.0-60) L 11/25/17 04:50 MCV 97.1 fl (80-99) 11/25/17 04:50 MCH 33.2 pg (27.0-31.0) H 11/25/17 04:50 MCHC Differential 34.2 pg (28.0-36.0) 11/25/17 04:50 RDW 12.3 % (11.5-20.0) 11/25/17 04:50 Plt Count 206 Th/cmm (150-400) 11/25/17 04:50 MPV 8.2 fl 11/25/17 04:50 Neutrophils % 63.2 % (40.0-80.0) 11/25/17 04:50 Lymphocytes % 22.2 % (20.0-50.0) 11/25/17 04:50 Monocytes % 12.7 % (2.0-10.0) H 11/25/17 04:50 Eosinophils % 1.0 % (0.0-5.0) 11/25/17 04:50 Basophils % 0.9 % (0.0-2.0) 11/25/17 04:50 PT 10.6 SECONDS (9.5-11.5) 11/24/17 16:50 INR 1.02 (0.5-1.4) 11/24/17 16:50 PTT (Actin FS) 23.0 SECONDS (26.0-38.0) L 11/24/17 16:50 Sodium 136 mEq/L (136-145) 11/25/17 04:50 Potassium 4.8 mEq/L (3.5-5.1) 11/25/17 04:50 Chloride 105 mEq/L (98-107) 11/25/17 04:50 Carbon Dioxide 19.3 mEq/L (21.0-31.0) L 11/25/17 04:50 Anion Gap 16.5 (7.0-16.0) H 11/25/17 04:50 BUN 88 mg/dL (7-25) H* 11/25/17 04:50 Creatinine 4.9 mg/dL (0.7-1.3) H* 11/25/17 04:50 Est GFR ( Amer) TNP 11/25/17 04:50 Est GFR (Non-Af Amer) TNP 11/25/17 04:50 BUN/Creatinine Ratio 18.0 11/25/17 04:50 Glucose 139 mg/dL (70-105) H 11/25/17 04:50 POC Glucose 146 MG/DL (70 - 105) H 11/25/17 06:51 Calcium 9.0 mg/dL (8.6-10.3) 11/25/17 04:50 Total Bilirubin 0.4 mg/dL (0.3-1.0) 11/25/17 04:50 AST 33 U/L (13-39) 11/25/17 04:50 ALT 20 U/L (7-52) 11/25/17 04:50 Alkaline Phosphatase 71 U/L (34-104) 11/25/17 04:50 Troponin I < 0.01 ng/mL (0.01-0.05) L 11/24/17 16:50 B-Natriuretic Peptide 83.2 pg/mL (5.0-100.0) 11/24/17 16:50 Total Protein 6.3 gm/dL (6.0-8.3) 11/25/17 04:50 Albumin 3.6 gm/dL (4.2-5.5) L 11/25/17 04:50 Globulin 2.7 gm/dL 11/25/17 04:50 Albumin/Globulin Ratio 1.3 (1.0-1.8) 11/25/17 04:50 Urine Source RANDOM 11/24/17 16:36 Urine Color YELLOW 11/24/17 16:36 Urine Clarity CLEAR (CLEAR) 11/24/17 16:36 Urine pH 5.5 (4.6 - 8.0) 11/24/17 16:36 Ur Specific [place] 1.025 (1.005-1.030) 11/24/17 16:36 Urine Protein NEGATIVE mg/dL (NEGATIVE) 11/24/17 16:36 Urine Glucose (UA) NEGATIVE mg/dL (NEGATIVE) 11/24/17 16:36 Urine Ketones NEGATIVE mg/dL (NEGATIVE) 11/24/17 16:36 Urine Blood TRACE (NEGATIVE) 11/24/17 16:36 Urine Nitrate NEGATIVE (NEGATIVE) 11/24/17 16:36 Urine Bilirubin NEGATIVE (NEGATIVE) 11/24/17 16:36 Urine Urobilinogen 0.2 E.U./dL (0.2 - 1.0) 11/24/17 16:36 Ur Leukocyte Esterase NEGATIVE (NEGATIVE) 11/24/17 16:36 Urine RBC 0-2 /hpf (0-5) H 11/24/17 16:36 Urine WBC 2-5 /hpf (0-5) 11/24/17 16:36 Ur Epithelial Cells FEW /lpf (FEW) 11/24/17 16:36 Urine Bacteria NONE SEEN /hpf (NONE SEEN) 11/24/17 16:36 - Physical Exam Vitals and I&O: Vital Signs Temp 98.2 F 11/25/17 06:00 Pulse 64 11/25/17 07:00 Resp 13 11/25/17 07:00 BP 123/60 11/25/17 07:00 Pulse Ox 100 11/25/17 07:00 Intake & Output 11/24/17 11/25/17 11/25/17 18:59 06:59 18:59 Intake Total 1350 Output Total 1999 Balance -650 Weight (lbs) 113.852 kg 111.175 kg Intake: Intake, IV Amount 1050 Sodium Bicarbonate 8.4% 1050 50 meq In Sodium Chloride 0.9% 1,000 ml @ 500 mls/ hr IV .Q2H6M [facility] Rx#: [id number] Oral 300 Output: Urine 1999 Other: # Bowel Movements 4 Stool Characteristics Liquid Brown Weight Source Estimated Bedscale Active Medications: Current Medications Acetaminophen/Hydrocodone Bitart ([place] 5mg/325mg) 1 tab PO Q6H PRN PRN Reason: Severe Pain Stop: 01/23/18 22:40 Amiodarone HCl (Cordarone) 200 mg PO DAILY [facility] Stop: 01/24/18 08:59 Sodium Bicarbonate 50 meq/ (Sodium Chloride) 1,050 mls @ 500 mls/hr IV .Q2H6M [facility] Stop: 01/23/18 19:14 Last Infusion: 11/25/17 00:30 Dose: Infused Sodium Chloride (Nacl 0.45%) 1,000 mls @ 75 mls/hr IV .[id number] [facility] Stop: 01/23/18 21:44 Last Admin: 11/24/17 22:43 Dose: 75 mls/hr Insulin Aspart (Novolog Insulin Sliding Scale) 0 units SUBQ ACHS [facility]; Protocol Stop: 01/24/18 07:29 Last Admin: 11/25/17 06:57 Dose: Not Given Miscellaneous (Carvedilol [Coreg]) 25 mg PO BID [facility] Stop: 01/24/18 08:59 Rivaroxaban (Xarelto) 15 mg PO DAILY [facility] Stop: 01/24/18 08:59 Sotalol HCl (Betapace) 80 mg PO DAILY [facility] Stop: 01/24/18 08:59 Tramadol HCl (Ultram) 50 mg PO Q6HR PRN PRN Reason: Leg Cramps Stop: 01/23/18 21:34 Last Admin: 11/24/17 22:39 Dose: 50 mg General: Alert, Oriented x3 HEENT: Atraumatic, PERRLA, EOMI Neck: Supple Cardiovascular: Regular rate, Normal S1, Normal S2 Lungs: Clear to auscultation Abdomen: Bowel sounds, Soft Extremities: Edema Assessment/Plan - Assessment Assessment: ACUTE RENAL FAILURE SECONDARY TO ATN HYPERKALEMIA HYPONATREMIA METABOLIC ACIDOSIS DM HTN AFIB - Plan Plan: POTASSIUM SODIUM AND KIDNEY FUNCTION IMPROVED HOLD OFF ON HD CONTINUE IVF WILL CHECK LABS IN AM
[2017-11-25] MEDS: Hydrocodone/APAP 5mg/325mg Tab PO PRN (09:56)
--- NOTE | 2017-11-25 11:23 | Internal Medicine Prog Note ---
Internal Medicine Subjective - Subjective Service Date: 11/25/17 Patient seen and examined:: with staff (HE FEELS WELL,NO SOB .) Patient is:: awake, verbal, in bed, talking Per staff patient has:: no adverse event Internal Medicine Objective - Results Result Diagrams: 11/25/17 04:50 11/25/17 04:50 Recent Labs: Laboratory Last Values WBC 8.9 Th/cmm (4.8-10.8) 11/25/17 04:50 RBC 3.48 Mil/cmm (3.80-5.80) L 11/25/17 04:50 Hgb 11.6 gm/dL (12-16) L 11/25/17 04:50 Hct 33.8 % (41.0-60) L 11/25/17 04:50 MCV 97.1 fl (80-99) 11/25/17 04:50 MCH 33.2 pg (27.0-31.0) H 11/25/17 04:50 MCHC Differential 34.2 pg (28.0-36.0) 11/25/17 04:50 RDW 12.3 % (11.5-20.0) 11/25/17 04:50 Plt Count 206 Th/cmm (150-400) 11/25/17 04:50 MPV 8.2 fl 11/25/17 04:50 Neutrophils % 63.2 % (40.0-80.0) 11/25/17 04:50 Lymphocytes % 22.2 % (20.0-50.0) 11/25/17 04:50 Monocytes % 12.7 % (2.0-10.0) H 11/25/17 04:50 Eosinophils % 1.0 % (0.0-5.0) 11/25/17 04:50 Basophils % 0.9 % (0.0-2.0) 11/25/17 04:50 PT 10.6 SECONDS (9.5-11.5) 11/24/17 16:50 INR 1.02 (0.5-1.4) 11/24/17 16:50 PTT (Actin FS) 23.0 SECONDS (26.0-38.0) L 11/24/17 16:50 Sodium 136 mEq/L (136-145) 11/25/17 04:50 Potassium 4.8 mEq/L (3.5-5.1) 11/25/17 04:50 Chloride 105 mEq/L (98-107) 11/25/17 04:50 Carbon Dioxide 19.3 mEq/L (21.0-31.0) L 11/25/17 04:50 Anion Gap 16.5 (7.0-16.0) H 11/25/17 04:50 BUN 88 mg/dL (7-25) H* 11/25/17 04:50 Creatinine 4.9 mg/dL (0.7-1.3) H* 11/25/17 04:50 Est GFR ( Amer) TNP 11/25/17 04:50 Est GFR (Non-Af Amer) TNP 11/25/17 04:50 BUN/Creatinine Ratio 18.0 11/25/17 04:50 Glucose 139 mg/dL (70-105) H 11/25/17 04:50 POC Glucose 146 MG/DL (70 - 105) H 11/25/17 06:51 Calcium 9.0 mg/dL (8.6-10.3) 11/25/17 04:50 Total Bilirubin 0.4 mg/dL (0.3-1.0) 11/25/17 04:50 AST 33 U/L (13-39) 11/25/17 04:50 ALT 20 U/L (7-52) 11/25/17 04:50 Alkaline Phosphatase 71 U/L (34-104) 11/25/17 04:50 Troponin I < 0.01 ng/mL (0.01-0.05) L 11/24/17 16:50 B-Natriuretic Peptide 83.2 pg/mL (5.0-100.0) 11/24/17 16:50 Total Protein 6.3 gm/dL (6.0-8.3) 11/25/17 04:50 Albumin 3.6 gm/dL (4.2-5.5) L 11/25/17 04:50 Globulin 2.7 gm/dL 11/25/17 04:50 Albumin/Globulin Ratio 1.3 (1.0-1.8) 11/25/17 04:50 Urine Source RANDOM 11/24/17 16:36 Urine Color YELLOW 11/24/17 16:36 Urine Clarity CLEAR (CLEAR) 11/24/17 16:36 Urine pH 5.5 (4.6 - 8.0) 11/24/17 16:36 Ur Specific [place] 1.025 (1.005-1.030) 11/24/17 16:36 Urine Protein NEGATIVE mg/dL (NEGATIVE) 11/24/17 16:36 Urine Glucose (UA) NEGATIVE mg/dL (NEGATIVE) 11/24/17 16:36 Urine Ketones NEGATIVE mg/dL (NEGATIVE) 11/24/17 16:36 Urine Blood TRACE (NEGATIVE) 11/24/17 16:36 Urine Nitrate NEGATIVE (NEGATIVE) 11/24/17 16:36 Urine Bilirubin NEGATIVE (NEGATIVE) 11/24/17 16:36 Urine Urobilinogen 0.2 E.U./dL (0.2 - 1.0) 11/24/17 16:36 Ur Leukocyte Esterase NEGATIVE (NEGATIVE) 11/24/17 16:36 Urine RBC 0-2 /hpf (0-5) H 11/24/17 16:36 Urine WBC 2-5 /hpf (0-5) 11/24/17 16:36 Ur Epithelial Cells FEW /lpf (FEW) 11/24/17 16:36 Urine Bacteria NONE SEEN /hpf (NONE SEEN) 11/24/17 16:36 - Physical Exam Vitals and I&O: Vital Signs Temp 97.4 F 11/25/17 08:00 Pulse 64 11/25/17 09:56 Resp 11 11/25/17 09:00 BP 129/69 11/25/17 09:55 Pulse Ox 100 11/25/17 09:00 Intake & Output 11/24/17 11/25/17 11/25/17 18:59 06:59 18:59 Intake Total 1350 Output Total 1999 Balance -650 Weight (lbs) 113.852 kg 111.175 kg Intake: Intake, IV Amount 1050 Sodium Bicarbonate 8.4% 1050 50 meq In Sodium Chloride 0.9% 1,000 ml @ 500 mls/ hr IV .Q2H6M [facility] Rx#: [id number] Oral 300 Output: Urine 1999 Other: # Bowel Movements 4 Stool Characteristics Liquid Brown Weight Source Estimated Bedscale Active Medications: Current Medications Acetaminophen/Hydrocodone Bitart ([place] 5mg/325mg) 1 tab PO Q6H PRN PRN Reason: Severe Pain Stop: 01/23/18 22:40 Last Admin: 11/25/17 09:56 Dose: 1 tab Amiodarone HCl (Cordarone) 200 mg PO DAILY [facility] Stop: 01/24/18 08:59 Last Admin: 11/25/17 09:56 Dose: 200 mg Sodium Chloride (Nacl 0.45%) 1,000 mls @ 75 mls/hr IV .[id number] [facility] Stop: 01/23/18 21:44 Last Admin: 11/24/17 22:43 Dose: 75 mls/hr Insulin Aspart (Novolog Insulin Sliding Scale) 0 units SUBQ ACHS [facility]; Protocol Stop: 01/24/18 07:29 Last Admin: 11/25/17 06:57 Dose: Not Given Miscellaneous (Carvedilol [Coreg]) 25 mg PO BID [facility] Stop: 01/24/18 08:59 Rivaroxaban (Xarelto) 15 mg PO DAILY [facility] Stop: 01/24/18 08:59 Last Admin: 11/25/17 09:56 Dose: 15 mg Sotalol HCl (Betapace) 80 mg PO DAILY [facility] Stop: 01/24/18 08:59 Last Admin: 11/25/17 09:55 Dose: 80 mg Tramadol HCl (Ultram) 50 mg PO Q6HR PRN PRN Reason: Leg Cramps Stop: 01/23/18 21:34 Last Admin: 11/24/17 22:39 Dose: 50 mg General: alert, obese HEENT: NC/AT, PERRLA, EOMI, anicteric sclerae, throat clear Neck: Supple, No JVD, No thyromegaly, +2 carotid pulse wo bruit, No LAD Lungs: CTAB Cardiovascular: RRR, Normal S1, Normal S2, without murmur Abdomen: soft, non-tender, non-distended Extremities: edema, rash Neurological: no change Internal Medicine Assmt/Plan - Assessment Assessment: 1.ACUTE RENAL FAILURE. 2.DM. 3.CHRONIC AFIB, 4.HTN - Plan Plan: CONTINUE ON CURRENT MEDICATION AND DIET. Nutritional Asmnt/Malnutr-PDOC - Dietary Evaluation Malnutrition Findings (Please click <Entered> for more info): Nutritional Asmnt/Malnutrition Start: 11/25/17 09: 39 Text: Status: Active Freq: Protocol: Document 11/25/17 09:39 LLUC (Rec: 11/25/17 09:53 LLUC LUIS [id number]) Nutritional Asmnt/Malnutrition Patient General Information Nutritional Screening High Risk Consult Diagnosis ARF, Severe hyperkalemia Pertinent Medical Hx/Surgical Hx ARF 2/2 ATN, DM 2, HTN, CHF, obesity, arthritis b/L knee DJD, Dyslipidemia, A Fib, Tremor Subjective Information Consult received for Vijay Hogan Current Diet Order/ Nutrition Support Renal 1800 Kcals Pertinent Medications novolog Pertinent Labs 11/25: K+ 4.8 (improved), BUN 88, Creat 4.9, Gluc 139-146, Alb 3.6 (decreased) 11/24: K+ 6.7, BUN 99, Creat 5. 9, Alb 4 Nutritional Hx/Data Height 1.75 m Height (Calculated Centimeters) 175.3 Current Weight (lbs) 111.13 kg Weight (Calculated Kilograms) 111.1 Weight (Calculated Grams) 054771.1 [place] Body Weight 160 % [place] Body Weight 153 Body Mass Index (BMI) 36.1 Weight Status Morbidly Obese GI Symptoms Last BM 11/25 Skin Integrity/Comment: Vijay 12; R foot reddened, b/ l lower leg abrasion, R face abrasion Estimated Nutritional Goals BEE in Kcals: Adj wt of IBW Calories/Kcals/Kg 22-25 Kcals Calculated 1636-1492 Protein: Adj wt of IBW Protein g/k.8 Protein Calculated 66 Fluid: ml per MD
[2017-11-25] MEDS: Sodium Chloride 0.45% 1,000 ML IV SCH (12:04)
[2017-11-26] MEDS: Hydrocodone/APAP 5mg/325mg Tab PO PRN ×3 (01:01→18:49)
[2017-11-26] MEDS: Sodium Chloride 0.45% 1,000 ML IV SCH ×2 (02:12→15:36)
[2017-11-26 05:12] LABS: ALB/GLOB RATIO 1.4 (1.0-1.8); ALBUMIN 3.5 gm/dL (4.2-5.5); ALKALINE PHOSPHATASE 72 U/L (34-104); ANION GAP 10.4 (7.0-16.0); BILIRUBIN,TOTAL 0.5 mg/dL (0.3-1.0); BUN - UREA NITROGEN 61 mg/dL (7-25); CARBON DIOXIDE 24.7 mEq/L (21.0-31.0); CHLORIDE 105 mEq/L (98-107); CREATININE - SERUM 2.4 mg/dL (0.7-1.3); GLUCOSE 132 mg/dL (70-105); POTASSIUM SERUM 5.1 mEq/L (3.5-5.1); SGOT 40 U/L (13-39); SGPT/ALT 26 U/L (7-52); SODIUM SERUM 135 mEq/L (136-145); TOTAL PROTEIN,SERUM 6.1 gm/dL (6.0-8.3)
[2017-11-26] MEDS: INSULIN ASPART SLIDING SCALE 100 UNITS/ML UNIT SUBQ SCH ×4 (09:51→21:35)
--- NOTE | 2017-11-26 11:01 | General Progress Note ---
Subjective - Review of Systems Service Date: 11/26/17 Subjective: pt in bed Objective - Results Result Diagrams: 11/25/17 04:50 11/26/17 04:40 Recent Labs: Laboratory Last Values WBC 8.9 Th/cmm (4.8-10.8) 11/25/17 04:50 RBC 3.48 Mil/cmm (3.80-5.80) L 11/25/17 04:50 Hgb 11.6 gm/dL (12-16) L 11/25/17 04:50 Hct 33.8 % (41.0-60) L 11/25/17 04:50 MCV 97.1 fl (80-99) 11/25/17 04:50 MCH 33.2 pg (27.0-31.0) H 11/25/17 04:50 MCHC Differential 34.2 pg (28.0-36.0) 11/25/17 04:50 RDW 12.3 % (11.5-20.0) 11/25/17 04:50 Plt Count 206 Th/cmm (150-400) 11/25/17 04:50 MPV 8.2 fl 11/25/17 04:50 Neutrophils % 63.2 % (40.0-80.0) 11/25/17 04:50 Lymphocytes % 22.2 % (20.0-50.0) 11/25/17 04:50 Monocytes % 12.7 % (2.0-10.0) H 11/25/17 04:50 Eosinophils % 1.0 % (0.0-5.0) 11/25/17 04:50 Basophils % 0.9 % (0.0-2.0) 11/25/17 04:50 PT 10.6 SECONDS (9.5-11.5) 11/24/17 16:50 INR 1.02 (0.5-1.4) 11/24/17 16:50 PTT (Actin FS) 23.0 SECONDS (26.0-38.0) L 11/24/17 16:50 Sodium 135 mEq/L (136-145) L 11/26/17 04:40 Potassium 5.1 mEq/L (3.5-5.1) 11/26/17 04:40 Chloride 105 mEq/L (98-107) 11/26/17 04:40 Carbon Dioxide 24.7 mEq/L (21.0-31.0) 11/26/17 04:40 Anion Gap 10.4 (7.0-16.0) 11/26/17 04:40 BUN 61 mg/dL (7-25) H 11/26/17 04:40 Creatinine 2.4 mg/dL (0.7-1.3) H 11/26/17 04:40 Est GFR ( Amer) TNP 11/26/17 04:40 Est GFR (Non-Af Amer) TNP 11/26/17 04:40 BUN/Creatinine Ratio 25.4 11/26/17 04:40 Glucose 132 mg/dL (70-105) H 11/26/17 04:40 POC Glucose 130 MG/DL (70 - 105) H 11/26/17 07:20 Calcium 9.0 mg/dL (8.6-10.3) 11/26/17 04:40 Total Bilirubin 0.5 mg/dL (0.3-1.0) 11/26/17 04:40 AST 40 U/L (13-39) H 11/26/17 04:40 ALT 26 U/L (7-52) 11/26/17 04:40 Alkaline Phosphatase 72 U/L (34-104) 11/26/17 04:40 Troponin I < 0.01 ng/mL (0.01-0.05) L 11/24/17 16:50 B-Natriuretic Peptide 83.2 pg/mL (5.0-100.0) 11/24/17 16:50 Total Protein 6.1 gm/dL (6.0-8.3) 11/26/17 04:40 Albumin 3.5 gm/dL (4.2-5.5) L 11/26/17 04:40 Globulin 2.6 gm/dL 11/26/17 04:40 Albumin/Globulin Ratio 1.4 (1.0-1.8) 11/26/17 04:40 Urine Source RANDOM 11/24/17 16:36 Urine Color YELLOW 11/24/17 16:36 Urine Clarity CLEAR (CLEAR) 11/24/17 16:36 Urine pH 5.5 (4.6 - 8.0) 11/24/17 16:36 Ur Specific [place] 1.025 (1.005-1.030) 11/24/17 16:36 Urine Protein NEGATIVE mg/dL (NEGATIVE) 11/24/17 16:36 Urine Glucose (UA) NEGATIVE mg/dL (NEGATIVE) 11/24/17 16:36 Urine Ketones NEGATIVE mg/dL (NEGATIVE) 11/24/17 16:36 Urine Blood TRACE (NEGATIVE) 11/24/17 16:36 Urine Nitrate NEGATIVE (NEGATIVE) 11/24/17 16:36 Urine Bilirubin NEGATIVE (NEGATIVE) 11/24/17 16:36 Urine Urobilinogen 0.2 E.U./dL (0.2 - 1.0) 11/24/17 16:36 Ur Leukocyte Esterase NEGATIVE (NEGATIVE) 11/24/17 16:36 Urine RBC 0-2 /hpf (0-5) H 11/24/17 16:36 Urine WBC 2-5 /hpf (0-5) 11/24/17 16:36 Ur Epithelial Cells FEW /lpf (FEW) 11/24/17 16:36 Urine Bacteria NONE SEEN /hpf (NONE SEEN) 11/24/17 16:36 - Physical Exam Vitals and I&O: Vital Signs Temp 97.6 F 11/26/17 08:00 Pulse 67 11/26/17 09:49 Resp 13 11/26/17 09:00 BP 147/65 11/26/17 09:49 Pulse Ox 97 11/26/17 09:00 Intake & Output 11/25/17 11/26/17 11/26/17 18:59 06:59 18:59 Intake Total 2080 1240 Output Total 1200 1450 Balance 880 -210 Weight (lbs) 111.175 kg 111.13 kg Intake: Intake, IV Amount 1000 1000 Sodium Chloride 0.45% 1, 1000 1000 000 ml @ 75 mls/hr IV . [id number] [facility] Rx#:[id number] Oral 1080 240 Output: Urine 1200 1450 Other: # Bowel Movements 1 1 Stool Characteristics Soft Brown Weight Source Bedscale Bedscale Active Medications: Current Medications Acetaminophen/Hydrocodone Bitart ([place] 5mg/325mg) 1 tab PO Q6H PRN PRN Reason: Severe Pain Stop: 01/23/18 22:40 Last Admin: 11/26/17 01:01 Dose: 1 tab Amiodarone HCl (Cordarone) 200 mg PO DAILY [facility] Stop: 01/24/18 08:59 Last Admin: 11/26/17 09:49 Dose: 200 mg Carvedilol (Coreg) 25 mg PO BID [facility] Stop: 01/24/18 08:59 Last Admin: 11/26/17 09:49 Dose: 25 mg Sodium Chloride (Nacl 0.45%) 1,000 mls @ 75 mls/hr IV .[id number] [facility] Stop: 01/23/18 21:44 Last Admin: 11/26/17 02:12 Dose: 75 mls/hr Insulin Aspart (Novolog Insulin Sliding Scale) 0 units SUBQ ACHS [facility]; Protocol Stop: 01/24/18 07:29 Last Admin: 11/26/17 09:51 Dose: Not Given Rivaroxaban (Xarelto) 15 mg PO DAILY [facility] Stop: 01/24/18 08:59 Last Admin: 11/26/17 09:50 Dose: 15 mg Sotalol HCl (Betapace) 80 mg PO DAILY [facility] Stop: 01/24/18 08:59 Last Admin: 11/26/17 09:49 Dose: 80 mg Tramadol HCl (Ultram) 50 mg PO Q6HR PRN PRN Reason: Leg Cramps Stop: 01/23/18 21:34 Last Admin: 11/24/17 22:39 Dose: 50 mg General: Alert, Oriented x3 HEENT: Atraumatic, PERRLA, EOMI Neck: Supple Cardiovascular: Regular rate, Normal S1, Normal S2 Lungs: Clear to auscultation Abdomen: Bowel sounds, Soft Extremities: Edema Assessment/Plan - Assessment Assessment: ACUTE RENAL FAILURE SECONDARY TO ATN HYPERKALEMIA HYPONATREMIA METABOLIC ACIDOSIS DM HTN AFIB - Plan Plan: POTASSIUM SODIUM AND KIDNEY FUNCTION IMPROVED Nutritional Asmnt/Malnutr-PDOC - Dietary Evaluation Malnutrition Findings (Please click <Entered> for more info): Nutritional Asmnt/Malnutrition Start: 11/25/17 09: 39 Text: Status: Complete Freq: Protocol: Document 11/25/17 09:39 LLUC (Rec: 11/25/17 09:53 [facility] [id number]) Nutritional Asmnt/Malnutrition Patient General Information Nutritional Screening High Risk Consult Diagnosis ARF, Severe hyperkalemia Pertinent Medical Hx/Surgical Hx ARF 2/2 ATN, DM 2, HTN, CHF, obesity, arthritis b/L knee DJD, Dyslipidemia, A Fib, Tremor Subjective Information Consult received for Vijay Hogan . Patient seen in room with son. Patient reports feeling better, said no issues with appetite but intake inadequate per EMR. Patient reported no dialysis per MD. RD reviewed CKD diet with patient and son; encouraged low sodium/ potassium diet. and daughter manages meals. RD to provide additional education to and daughter upon f/u and discharge. Current Diet Order/ Nutrition Support Renal Patient / S.O Can Pertinent Medications novolog Pertinent Labs 11/25: K+ 4.8 (improved), BUN 88, Creat 4.9, Gluc 139-146, Alb 3.6 (decreased) 11/24: K+ 6.7, BUN 99, Creat 5. 9, Alb 4 Nutritional Hx/Data Height 1.75 m Height (Calculated Centimeters) 175.3 Current Weight (lbs) 111.13 kg Weight (Calculated Kilograms) 111.1 Weight (Calculated Grams) 211690.1 [place] Body Weight 160 % [place] Body Weight 153 Body Mass Index (BMI) 36.1 Weight Status Morbidly Obese GI Symptoms GI Symptoms None Last BM 11/25 Difficult in: None Food Allergies No Usual diet at home no specific diet at home Skin Integrity/Comment: Vijay Hogan; R foot reddened, b/ l lower leg abrasion, R face abrasion Current %PO Fair (50-74%) Estimated Nutritional Goals BEE in Kcals: Adj wt of IBW Calories/Kcals/Kg 22-25 Kcals Calculated 0390-8507 Protein: Adj wt of IBW Protein g/k.6-0.8 Protein Calculated 50-66 d/t elevated BUN/Creat not on dialysis Fluid: ml per MD Nutritional Problem 1. Problem Problem Altered nutrition-related labs Etiology renal insufficiency Signs/Symptoms: elevated BUN/Creat Intervention/Recommendation Comments 1. Recommend continuing renal diet. 2. Recommend adding arginine for wound healing. Expected Outcomes/Goals Expected Outcomes/Goals Goal: 1. PO intake to meet at least 75% of nutritional needs. 2. Wt to trend towards IBW, improved skin integrity, labs to approach WNL. Monitor PO intake, wt, labs and skin integrity F/U as high risk in 2-3 days, 11/27-11/28
--- NOTE | 2017-11-26 15:13 | Internal Medicine Prog Note ---
Internal Medicine Subjective - Subjective Service Date: 11/26/17 Patient seen and examined:: with staff (HE FEELS BETTER,NO CHEST PAIN OR SOB.HE HAS TREMOR OF UPPER EXTREM.) Patient is:: awake, verbal, in bed, talking Per staff patient has:: no adverse event Internal Medicine Objective - Results Result Diagrams: 11/25/17 04:50 11/26/17 04:40 Recent Labs: Laboratory Last Values WBC 8.9 Th/cmm (4.8-10.8) 11/25/17 04:50 RBC 3.48 Mil/cmm (3.80-5.80) L 11/25/17 04:50 Hgb 11.6 gm/dL (12-16) L 11/25/17 04:50 Hct 33.8 % (41.0-60) L 11/25/17 04:50 MCV 97.1 fl (80-99) 11/25/17 04:50 MCH 33.2 pg (27.0-31.0) H 11/25/17 04:50 MCHC Differential 34.2 pg (28.0-36.0) 11/25/17 04:50 RDW 12.3 % (11.5-20.0) 11/25/17 04:50 Plt Count 206 Th/cmm (150-400) 11/25/17 04:50 MPV 8.2 fl 11/25/17 04:50 Neutrophils % 63.2 % (40.0-80.0) 11/25/17 04:50 Lymphocytes % 22.2 % (20.0-50.0) 11/25/17 04:50 Monocytes % 12.7 % (2.0-10.0) H 11/25/17 04:50 Eosinophils % 1.0 % (0.0-5.0) 11/25/17 04:50 Basophils % 0.9 % (0.0-2.0) 11/25/17 04:50 PT 10.6 SECONDS (9.5-11.5) 11/24/17 16:50 INR 1.02 (0.5-1.4) 11/24/17 16:50 PTT (Actin FS) 23.0 SECONDS (26.0-38.0) L 11/24/17 16:50 Sodium 135 mEq/L (136-145) L 11/26/17 04:40 Potassium 5.1 mEq/L (3.5-5.1) 11/26/17 04:40 Chloride 105 mEq/L (98-107) 11/26/17 04:40 Carbon Dioxide 24.7 mEq/L (21.0-31.0) 11/26/17 04:40 Anion Gap 10.4 (7.0-16.0) 11/26/17 04:40 BUN 61 mg/dL (7-25) H 11/26/17 04:40 Creatinine 2.4 mg/dL (0.7-1.3) H 11/26/17 04:40 Est GFR ( Amer) TNP 11/26/17 04:40 Est GFR (Non-Af Amer) TNP 11/26/17 04:40 BUN/Creatinine Ratio 25.4 11/26/17 04:40 Glucose 132 mg/dL (70-105) H 11/26/17 04:40 POC Glucose 230 MG/DL (70 - 105) H 11/26/17 12:19 Calcium 9.0 mg/dL (8.6-10.3) 11/26/17 04:40 Total Bilirubin 0.5 mg/dL (0.3-1.0) 11/26/17 04:40 AST 40 U/L (13-39) H 11/26/17 04:40 ALT 26 U/L (7-52) 11/26/17 04:40 Alkaline Phosphatase 72 U/L (34-104) 11/26/17 04:40 Troponin I < 0.01 ng/mL (0.01-0.05) L 11/24/17 16:50 B-Natriuretic Peptide 83.2 pg/mL (5.0-100.0) 11/24/17 16:50 Total Protein 6.1 gm/dL (6.0-8.3) 11/26/17 04:40 Albumin 3.5 gm/dL (4.2-5.5) L 11/26/17 04:40 Globulin 2.6 gm/dL 11/26/17 04:40 Albumin/Globulin Ratio 1.4 (1.0-1.8) 11/26/17 04:40 Urine Source RANDOM 11/24/17 16:36 Urine Color YELLOW 11/24/17 16:36 Urine Clarity CLEAR (CLEAR) 11/24/17 16:36 Urine pH 5.5 (4.6 - 8.0) 11/24/17 16:36 Ur Specific [place] 1.025 (1.005-1.030) 11/24/17 16:36 Urine Protein NEGATIVE mg/dL (NEGATIVE) 11/24/17 16:36 Urine Glucose (UA) NEGATIVE mg/dL (NEGATIVE) 11/24/17 16:36 Urine Ketones NEGATIVE mg/dL (NEGATIVE) 11/24/17 16:36 Urine Blood TRACE (NEGATIVE) 11/24/17 16:36 Urine Nitrate NEGATIVE (NEGATIVE) 11/24/17 16:36 Urine Bilirubin NEGATIVE (NEGATIVE) 11/24/17 16:36 Urine Urobilinogen 0.2 E.U./dL (0.2 - 1.0) 11/24/17 16:36 Ur Leukocyte Esterase NEGATIVE (NEGATIVE) 11/24/17 16:36 Urine RBC 0-2 /hpf (0-5) H 11/24/17 16:36 Urine WBC 2-5 /hpf (0-5) 11/24/17 16:36 Ur Epithelial Cells FEW /lpf (FEW) 11/24/17 16:36 Urine Bacteria NONE SEEN /hpf (NONE SEEN) 11/24/17 16:36 - Physical Exam Vitals and I&O: Vital Signs Temp 97.8 F 11/26/17 12:00 Pulse 54 11/26/17 12:00 Resp 15 11/26/17 12:00 BP 128/64 11/26/17 12:00 Pulse Ox 95 11/26/17 12:00 Intake & Output 11/25/17 11/26/17 11/26/17 18:59 06:59 18:59 Intake Total 2080 1240 Output Total 1200 1450 Balance 880 -210 Weight (lbs) 111.175 kg 111.13 kg 111.13 kg Intake: Intake, IV Amount 1000 1000 Sodium Chloride 0.45% 1, 1000 1000 000 ml @ 75 mls/hr IV . [id number] [facility] Rx#:[id number] Oral 1080 240 Output: Urine 1200 1450 Other: # Bowel Movements 1 1 Stool Characteristics Soft Brown Weight Source Bedscale Bedscale Bedscale Active Medications: Current Medications Acetaminophen/Hydrocodone Bitart ([place] 5mg/325mg) 1 tab PO Q6H PRN PRN Reason: Severe Pain Stop: 01/23/18 22:40 Last Admin: 11/26/17 11:41 Dose: 1 tab Amiodarone HCl (Cordarone) 200 mg PO DAILY [facility] Stop: 01/24/18 08:59 Last Admin: 11/26/17 09:49 Dose: 200 mg Carvedilol (Coreg) 25 mg PO BID [facility] Stop: 01/24/18 08:59 Last Admin: 11/26/17 09:49 Dose: 25 mg Sodium Chloride (Nacl 0.45%) 1,000 mls @ 75 mls/hr IV .[id number] [facility] Stop: 01/23/18 21:44 Last Admin: 11/26/17 02:12 Dose: 75 mls/hr Insulin Aspart (Novolog Insulin Sliding Scale) 0 units SUBQ ACHS [facility]; Protocol Stop: 01/24/18 07:29 Last Admin: 11/26/17 12:47 Dose: 4 units Rivaroxaban (Xarelto) 15 mg PO DAILY [facility] Stop: 01/24/18 08:59 Last Admin: 11/26/17 09:50 Dose: 15 mg Sotalol HCl (Betapace) 80 mg PO DAILY [facility] Stop: 01/24/18 08:59 Last Admin: 11/26/17 09:49 Dose: 80 mg Tramadol HCl (Ultram) 50 mg PO Q6HR PRN PRN Reason: Leg Cramps Stop: 01/23/18 21:34 Last Admin: 11/24/17 22:39 Dose: 50 mg General: alert, obese HEENT: NC/AT, PERRLA, EOMI, anicteric sclerae, throat clear Neck: Supple, No JVD, No thyromegaly, +2 carotid pulse wo bruit, No LAD Lungs: CTAB Cardiovascular: RRR, Normal S1, Normal S2, without murmur Abdomen: soft, non-tender, non-distended Extremities: edema, rash Neurological: no change Internal Medicine Assmt/Plan - Assessment Assessment: 1.ACUTE RENAL FAILURE. 2.DM. 3.CHRONIC AFIB, 4.HTN 5.TREMOR OF UPPER EXTREM. - Plan Plan: CONTINUE ON CURRENT MEDICATION AND DIET.CONSULT ,NEUROLOGIST. Nutritional Asmnt/Malnutr-PDOC - Dietary Evaluation Malnutrition Findings (Please click <Entered> for more info): Nutritional Asmnt/Malnutrition Start: 11/25/17 09: 39 Text: Status: Complete Freq: Protocol: Document 11/25/17 09:39 [facility] (Rec: 11/25/17 09:53 [facility] LUIS [id number]) Nutritional Asmnt/Malnutrition Patient General Information Nutritional Screening High Risk Consult Diagnosis ARF, Severe hyperkalemia Pertinent Medical Hx/Surgical Hx ARF 2/2 ATN, DM 2, HTN, CHF, obesity, arthritis b/L knee DJD, Dyslipidemia, A Fib, Tremor Subjective Information Consult received for Vijay Hogan . Patient seen in room with son. Patient reports feeling better, said no issues with appetite but intake inadequate per EMR. Patient reported no dialysis per MD. RD reviewed CKD diet with patient and son; encouraged low sodium/ potassium diet. and daughter manages meals. RD to provide additional education to and daughter upon f/u and discharge. Current Diet Order/ Nutrition Support Renal Patient / S.O Can Pertinent Medications novolog Pertinent Labs 11/25: K+ 4.8 (improved), BUN 88, Creat 4.9, Gluc 139-146, Alb 3.6 (decreased) 11/24: K+ 6.7, BUN 99, Creat 5. 9, Alb 4 Nutritional Hx/Data Height 1.75 m Height (Calculated Centimeters) 175.3 Current Weight (lbs) 111.13 kg Weight (Calculated Kilograms) 111.1 Weight (Calculated Grams) 893885.1 [place] Body Weight 160 % [place] Body Weight 153 Body Mass Index (BMI) 36.1 Weight Status Morbidly Obese GI Symptoms GI Symptoms None Last BM 11/25 Difficult in: None Food Allergies No Usual diet at home no specific diet at home Skin Integrity/Comment: Vijay 12; R foot reddened, b/ l lower leg abrasion, R face abrasion Current %PO Fair (50-74%) Estimated Nutritional Goals BEE in Kcals: Adj wt of IBW Calories/Kcals/Kg 22-25 Kcals Calculated 7953-2152 Protein: Adj wt of IBW Protein g/k.6-0.8 Protein Calculated 50-66 d/t elevated BUN/Creat not on dialysis Fluid: ml per MD Nutritional Problem 1. Problem Problem Altered nutrition-related labs Etiology renal insufficiency Signs/Symptoms: elevated BUN/Creat Intervention/Recommendation Comments 1. Recommend continuing renal diet. 2. Recommend adding arginine for wound healing. Expected Outcomes/Goals Expected Outcomes/Goals Goal: 1. PO intake to meet at least 75% of nutritional needs. 2. Wt to trend towards IBW, improved skin integrity, labs to approach WNL. Monitor PO intake, wt, labs and skin integrity F/U as high risk in 2-3 days, 11/27-11/28
[2017-11-27] MEDS: Hydrocodone/APAP 5mg/325mg Tab PO PRN ×3 (00:15→13:50)
--- NOTE | 2017-11-27 02:51 | Consultation ---
DATE OF CONSULTATION: 11/26/2017 HISTORY OF PRESENT ILLNESS: This 72-year-old male was seen and examined at the courtesy of Dr. Saleh. The patient was admitted here with generalized weakness, both upper and lower extremities, multiple falls, evaluated in the Emergency Room then admitted. The patient does have chronic history of paroxysmal atrial fibrillation, history of diabetes mellitus and hypertension. He was found to have in the Emergency Room acute renal failure with severe hyperkalemia. He was evaluated, treated in the Emergency Room, then admitted. The patient's medications according to the chart available. The patient was on metformin before, lisinopril, Cardarone, and sotalol. The patient is not a good historian, but apparently there was no chest pains, no palpitations, no dizziness. No syncope, no seizures. No history of nausea, vomiting. No history of hematemesis. No history of melena, no history of bleeding per rectum. No history of hematuria. PAST MEDICAL HISTORY: Usual childhood diseases. No history of rheumatic fever. No history of scarlet fever. Other past history as mentioned above. ALLERGIES: PENICILLIN. SOCIAL HISTORY: There is no history of smoking, no history of alcohol abuse, no history of drugs. FAMILY HISTORY: Nonsignificant according to the chart information. PHYSICAL EXAMINATION: VITAL SIGNS: Heart rate was 54, blood pressure was 129/42, respiration 14. SKIN: Normal. HEAD: Normocephalic. EYES: Conjunctivae were pink. There is no icterus in the eyes. Pupils reactive to light. NECK: There was no increased jugular venous distention, no thyromegaly, no lymphadenopathy. Carotids equal both sides. CHEST: Bilaterally symmetrical, moved well with respiration. Respiratory movements equal both sides. Trachea is central. There is note to percussion. Breath sounds, few scattered rales. CARDIOVASCULAR SYSTEM: PMI not well localized. There is no positional thrill. No parasternal heave. There was no S3, no rub. ABDOMEN: Soft, no tenderness, no rigidity, no guarding and no organomegaly. Bowel sounds normal. Reflexes hyporeflexia. EXTREMITIES: There was 1-2+ edema both lower extremities, multiple bruises and ulcers on the lower extremities is apparently as a result of multiple falls. Slight redness. Peripheral pulses diminished. LABORATORY DATA: White cell count was 19.6, hemoglobin 12.2, hematocrit 35.8, platelets 237. INR was 1.02. Sodium 127, potassium 6.7, BUN 19, creatinine 5.9. Troponin was less than 0.01. Glucose 123. BNP was 83.2. Chest x-ray shows cardiomegaly, no acute pulmonary disease. The repeat BMP showed sodium 131, potassium 6.2, chloride 102, carbon dioxide 17.1, BUN 95, creatinine 5.4 and repeat test after that shows sodium of 136, potassium 4.8, chloride 105, carbon dioxide 19.3, BUN 88, creatinine 4.9, glucose 139, calcium 9.0. Liver function tests were unremarkable. Urinalysis was unremarkable. IMPRESSION: Paroxysmal atrial fibrillation because the patient is now in sinus rhythm, hypertension, diabetes mellitus, diabetic neuropathy also. Acute renal failure, hyperkalemia, hyponatremia, history of multiple falls with multiple bruises and ulcers on lower extremities. Question of cellulitis, degenerative joint disease. EKG showed sinus bradycardia, first-degree heart block, right bundle-branch block. DISCUSSION SESSION: The patient is already on Xarelto, so he is to continue long-term anticoagulation. We will get a repeat EKG in a.m., echocardiogram in a.m. Thyroid profile, lipid profile, echocardiogram to evaluate left ventricular function and valvular structure. The patient should continue on beta shannan, antihypertensive medications, statins to be added. We will check the lipid profile also. Further recommendation will be made depending on the rest of the tests available. JOB# [id number]
[2017-11-27 04:59] LABS: ANION GAP 9.5 (7.0-16.0); BUN - UREA NITROGEN 44 mg/dL (7-25); CALCIUM SERUM 8.5 mg/dL (8.6-10.3); CARBON DIOXIDE 24.7 mEq/L (21.0-31.0); CHLORIDE 101 mEq/L (98-107); CHOLESTEROL 98 mg/dL (<200); CREATININE - SERUM 1.8 mg/dL (0.7-1.3); GLUCOSE 126 mg/dL (70-105); HDL -HIGH DENSITY LIPOPROTEIN 31 mg/dL (23-92); POTASSIUM SERUM 4.2 mEq/L (3.5-5.1); SODIUM SERUM 131 mEq/L (136-145); TRIGLYCERIDES 115 mg/dL (<150)
[2017-11-27] MEDS: INSULIN ASPART SLIDING SCALE 100 UNITS/ML UNIT SUBQ SCH ×4 (06:55→22:20)
[2017-11-27] MEDS ORDERED: Atorvastatin Calcium 10 MG TAB PO SCH (09:00)
--- NOTE | 2017-11-27 09:21 | Diagnostic Imaging Report ---
Renal ultrasound HISTORY: Acute renal failure. COMPARISON: None Technique: Sonography of the kidneys and urinary bladder was performed in multiple planes. FINDINGS: Exam is limited due to body habitus. The right kidney measures 12.0 x 5.8 cm. The left kidney measures 12.3 x 6.5 cm. The renal margins are not well-defined, however, no obvious focal lesions or evidence of hydronephrosis. The urinary bladder appears collapsed and contains a Wolfe catheter, limiting its evaluation. IMPRESSION: Limited exam due to body habitus. No evidence of hydronephrosis. Slight increased left renal size, nonspecific.
--- NOTE | 2017-11-27 15:31 | General Progress Note ---
Subjective - Review of Systems Service Date: 11/27/17 Subjective: pt in bed. no distress Objective - Results Result Diagrams: 11/25/17 04:50 11/27/17 04:10 Recent Labs: Laboratory Last Values WBC 8.9 Th/cmm (4.8-10.8) 11/25/17 04:50 RBC 3.48 Mil/cmm (3.80-5.80) L 11/25/17 04:50 Hgb 11.6 gm/dL (12-16) L 11/25/17 04:50 Hct 33.8 % (41.0-60) L 11/25/17 04:50 MCV 97.1 fl (80-99) 11/25/17 04:50 MCH 33.2 pg (27.0-31.0) H 11/25/17 04:50 MCHC Differential 34.2 pg (28.0-36.0) 11/25/17 04:50 RDW 12.3 % (11.5-20.0) 11/25/17 04:50 Plt Count 206 Th/cmm (150-400) 11/25/17 04:50 MPV 8.2 fl 11/25/17 04:50 Neutrophils % 63.2 % (40.0-80.0) 11/25/17 04:50 Lymphocytes % 22.2 % (20.0-50.0) 11/25/17 04:50 Monocytes % 12.7 % (2.0-10.0) H 11/25/17 04:50 Eosinophils % 1.0 % (0.0-5.0) 11/25/17 04:50 Basophils % 0.9 % (0.0-2.0) 11/25/17 04:50 PT 10.6 SECONDS (9.5-11.5) 11/24/17 16:50 INR 1.02 (0.5-1.4) 11/24/17 16:50 PTT (Actin FS) 23.0 SECONDS (26.0-38.0) L 11/24/17 16:50 Sodium 131 mEq/L (136-145) L 11/27/17 04:10 Potassium 4.2 mEq/L (3.5-5.1) 11/27/17 04:10 Chloride 101 mEq/L (98-107) 11/27/17 04:10 Carbon Dioxide 24.7 mEq/L (21.0-31.0) 11/27/17 04:10 Anion Gap 9.5 (7.0-16.0) 11/27/17 04:10 BUN 44 mg/dL (7-25) H 11/27/17 04:10 Creatinine 1.8 mg/dL (0.7-1.3) H 11/27/17 04:10 Est GFR ( Amer) TNP 11/27/17 04:10 Est GFR (Non-Af Amer) TNP 11/27/17 04:10 BUN/Creatinine Ratio 24.4 11/27/17 04:10 Glucose 126 mg/dL (70-105) H 11/27/17 04:10 POC Glucose 187 MG/DL (70 - 105) H 11/27/17 12:01 Calcium 8.5 mg/dL (8.6-10.3) L 11/27/17 04:10 Total Bilirubin 0.5 mg/dL (0.3-1.0) 11/26/17 04:40 AST 40 U/L (13-39) H 11/26/17 04:40 ALT 26 U/L (7-52) 11/26/17 04:40 Alkaline Phosphatase 72 U/L (34-104) 11/26/17 04:40 Troponin I < 0.01 ng/mL (0.01-0.05) L 11/24/17 16:50 B-Natriuretic Peptide 83.2 pg/mL (5.0-100.0) 11/24/17 16:50 Total Protein 6.1 gm/dL (6.0-8.3) 11/26/17 04:40 Albumin 3.5 gm/dL (4.2-5.5) L 11/26/17 04:40 Globulin 2.6 gm/dL 11/26/17 04:40 Albumin/Globulin Ratio 1.4 (1.0-1.8) 11/26/17 04:40 Triglycerides 115 mg/dL (<150) 11/27/17 04:10 Cholesterol 98 mg/dL (<200) 11/27/17 04:10 LDL Cholesterol Direct 44 mg/dL (75-193) L 11/27/17 04:10 HDL Cholesterol 31 mg/dL (23-92) 11/27/17 04:10 TSH 6.88 uIU/ml (0.34-5.60) H 11/27/17 04:10 Urine Source RANDOM 11/24/17 16:36 Urine Color YELLOW 11/24/17 16:36 Urine Clarity CLEAR (CLEAR) 11/24/17 16:36 Urine pH 5.5 (4.6 - 8.0) 11/24/17 16:36 Ur Specific [place] 1.025 (1.005-1.030) 11/24/17 16:36 Urine Protein NEGATIVE mg/dL (NEGATIVE) 11/24/17 16:36 Urine Glucose (UA) NEGATIVE mg/dL (NEGATIVE) 11/24/17 16:36 Urine Ketones NEGATIVE mg/dL (NEGATIVE) 11/24/17 16:36 Urine Blood TRACE (NEGATIVE) 11/24/17 16:36 Urine Nitrate NEGATIVE (NEGATIVE) 11/24/17 16:36 Urine Bilirubin NEGATIVE (NEGATIVE) 11/24/17 16:36 Urine Urobilinogen 0.2 E.U./dL (0.2 - 1.0) 11/24/17 16:36 Ur Leukocyte Esterase NEGATIVE (NEGATIVE) 11/24/17 16:36 Urine RBC 0-2 /hpf (0-5) H 11/24/17 16:36 Urine WBC 2-5 /hpf (0-5) 11/24/17 16:36 Ur Epithelial Cells FEW /lpf (FEW) 11/24/17 16:36 Urine Bacteria NONE SEEN /hpf (NONE SEEN) 11/24/17 16:36 - Physical Exam Vitals and I&O: Vital Signs Temp 98.2 F 11/27/17 12:00 Pulse 64 11/27/17 14:00 Resp 14 11/27/17 14:00 BP 153/85 11/27/17 14:00 Pulse Ox 99 11/27/17 14:00 Intake & Output 11/26/17 11/27/17 11/27/17 18:59 06:59 18:59 Intake Total 2120 360 Output Total 800 700 Balance 1320 -340 Weight (lbs) 111.13 kg 111.13 kg 111.13 kg Intake: Intake, IV Amount 1000 Sodium Chloride 0.45% 1, 1000 000 ml @ 75 mls/hr IV . [id number] [facility] Rx#:[id number] Oral 1120 360 Output: Urine 800 700 Other: # Bowel Movements 0 Weight Source Bedscale Bedscale Bedscale Active Medications: Current Medications Acetaminophen/Hydrocodone Bitart ([place] 5mg/325mg) 1 tab PO Q6H PRN PRN Reason: Severe Pain Stop: 01/23/18 22:40 Last Admin: 11/27/17 13:50 Dose: 1 tab Atorvastatin Calcium (Lipitor) 10 mg PO HS [facility]; Protocol Stop: 01/26/18 20:59 Sodium Chloride (Nacl 0.45%) 1,000 mls @ 75 mls/hr IV .[id number] [facility] Stop: 01/23/18 21:44 Last Admin: 11/26/17 15:36 Dose: 75 mls/hr Insulin Aspart (Novolog Insulin Sliding Scale) 0 units SUBQ ACHS [facility]; Protocol Stop: 01/24/18 07:29 Last Admin: 11/27/17 12:09 Dose: 2 units Lisinopril (Zestril) 40 mg PO DAILY [facility] Stop: 01/27/18 08:59 Mupirocin (Bactroban Oint) 1 appl TP BID [facility] Stop: 01/25/18 16:59 Last Admin: 11/26/17 18:50 Dose: 1 appl Sotalol HCl (Betapace) 80 mg PO DAILY [facility] Stop: 01/24/18 11:59 Last Admin: 11/27/17 12:08 Dose: 80 mg Tramadol HCl (Ultram) 50 mg PO Q6HR PRN PRN Reason: Leg Cramps Stop: 01/23/18 21:34 Last Admin: 11/24/17 22:39 Dose: 50 mg General: Alert, Oriented x3 HEENT: Atraumatic, PERRLA, EOMI Neck: Supple Cardiovascular: Regular rate, Normal S1, Normal S2 Lungs: Clear to auscultation Abdomen: Bowel sounds, Soft Extremities: Edema Assessment/Plan - Assessment Assessment: ACUTE RENAL FAILURE SECONDARY TO ATN HYPERKALEMIA HYPONATREMIA METABOLIC ACIDOSIS DM HTN AFIB - Plan Plan: POTASSIUM SODIUM AND KIDNEY FUNCTION IMPROVED Nutritional Asmnt/Malnutr-PDOC - Dietary Evaluation Malnutrition Findings (Please click <Entered> for more info): Nutritional Asmnt/Malnutrition Start: 11/25/17 09: 39 Text: Status: Complete Freq: Protocol: Document 11/25/17 09:39 [facility] (Rec: 11/25/17 09:53 [facility] LUIS [id number]) Nutritional Asmnt/Malnutrition Patient General Information Nutritional Screening High Risk Consult Diagnosis ARF, Severe hyperkalemia Pertinent Medical Hx/Surgical Hx ARF 2/2 ATN, DM 2, HTN, CHF, obesity, arthritis b/L knee DJD, Dyslipidemia, A Fib, Tremor Subjective Information Consult received for Vijay Hogan . Patient seen in room with son. Patient reports feeling better, said no issues with appetite but intake inadequate per EMR. Patient reported no dialysis per MD. RD reviewed CKD diet with patient and son; encouraged low sodium/ potassium diet. and daughter manages meals. RD to provide additional education to and daughter upon f/u and discharge. Current Diet Order/ Nutrition Support Renal Patient / S.O Can Pertinent Medications novolog Pertinent Labs 11/25: K+ 4.8 (improved), BUN 88, Creat 4.9, Gluc 139-146, Alb 3.6 (decreased) 11/24: K+ 6.7, BUN 99, Creat 5. 9, Alb 4 Nutritional Hx/Data Height 1.75 m Height (Calculated Centimeters) 175.3 Current Weight (lbs) 111.13 kg Weight (Calculated Kilograms) 111.1 Weight (Calculated Grams) 793731.1 [place] Body Weight 160 % [place] Body Weight 153 Body Mass Index (BMI) 36.1 Weight Status Morbidly Obese GI Symptoms GI Symptoms None Last BM 11/25 Difficult in: None Food Allergies No Usual diet at home no specific diet at home Skin Integrity/Comment: Vijay 12; R foot reddened, b/ l lower leg abrasion, R face abrasion Current %PO Fair (50-74%) Estimated Nutritional Goals BEE in Kcals: Adj wt of IBW Calories/Kcals/Kg 22-25 Kcals Calculated 1083-1776 Protein: Adj wt of IBW Protein g/k.6-0.8 Protein Calculated 50-66 d/t elevated BUN/Creat not on dialysis Fluid: ml per MD Nutritional Problem 1. Problem Problem Altered nutrition-related labs Etiology renal insufficiency Signs/Symptoms: elevated BUN/Creat Intervention/Recommendation Comments 1. Recommend continuing renal diet. 2. Recommend adding arginine for wound healing. Expected Outcomes/Goals Expected Outcomes/Goals Goal: 1. PO intake to meet at least 75% of nutritional needs. 2. Wt to trend towards IBW, improved skin integrity, labs to approach WNL. Monitor PO intake, wt, labs and skin integrity F/U as high risk in 2-3 days, 11/27-11/28
--- NOTE | 2017-11-27 17:17 | Internal Medicine Prog Note ---
Internal Medicine Subjective - Subjective Service Date: 11/27/17 Patient seen and examined:: with staff (he fells well,no sob.) Patient is:: awake, verbal, in bed, talking Per staff patient has:: no adverse event Internal Medicine Objective - Results Result Diagrams: 11/25/17 04:50 11/27/17 04:10 Recent Labs: Laboratory Last Values WBC 8.9 Th/cmm (4.8-10.8) 11/25/17 04:50 RBC 3.48 Mil/cmm (3.80-5.80) L 11/25/17 04:50 Hgb 11.6 gm/dL (12-16) L 11/25/17 04:50 Hct 33.8 % (41.0-60) L 11/25/17 04:50 MCV 97.1 fl (80-99) 11/25/17 04:50 MCH 33.2 pg (27.0-31.0) H 11/25/17 04:50 MCHC Differential 34.2 pg (28.0-36.0) 11/25/17 04:50 RDW 12.3 % (11.5-20.0) 11/25/17 04:50 Plt Count 206 Th/cmm (150-400) 11/25/17 04:50 MPV 8.2 fl 11/25/17 04:50 Neutrophils % 63.2 % (40.0-80.0) 11/25/17 04:50 Lymphocytes % 22.2 % (20.0-50.0) 11/25/17 04:50 Monocytes % 12.7 % (2.0-10.0) H 11/25/17 04:50 Eosinophils % 1.0 % (0.0-5.0) 11/25/17 04:50 Basophils % 0.9 % (0.0-2.0) 11/25/17 04:50 PT 10.6 SECONDS (9.5-11.5) 11/24/17 16:50 INR 1.02 (0.5-1.4) 11/24/17 16:50 PTT (Actin FS) 23.0 SECONDS (26.0-38.0) L 11/24/17 16:50 Sodium 131 mEq/L (136-145) L 11/27/17 04:10 Potassium 4.2 mEq/L (3.5-5.1) 11/27/17 04:10 Chloride 101 mEq/L (98-107) 11/27/17 04:10 Carbon Dioxide 24.7 mEq/L (21.0-31.0) 11/27/17 04:10 Anion Gap 9.5 (7.0-16.0) 11/27/17 04:10 BUN 44 mg/dL (7-25) H 11/27/17 04:10 Creatinine 1.8 mg/dL (0.7-1.3) H 11/27/17 04:10 Est GFR ( Amer) TNP 11/27/17 04:10 Est GFR (Non-Af Amer) TNP 11/27/17 04:10 BUN/Creatinine Ratio 24.4 11/27/17 04:10 Glucose 126 mg/dL (70-105) H 11/27/17 04:10 POC Glucose 187 MG/DL (70 - 105) H 11/27/17 12:01 Calcium 8.5 mg/dL (8.6-10.3) L 11/27/17 04:10 Total Bilirubin 0.5 mg/dL (0.3-1.0) 11/26/17 04:40 AST 40 U/L (13-39) H 11/26/17 04:40 ALT 26 U/L (7-52) 11/26/17 04:40 Alkaline Phosphatase 72 U/L (34-104) 11/26/17 04:40 Troponin I < 0.01 ng/mL (0.01-0.05) L 11/24/17 16:50 B-Natriuretic Peptide 83.2 pg/mL (5.0-100.0) 11/24/17 16:50 Total Protein 6.1 gm/dL (6.0-8.3) 11/26/17 04:40 Albumin 3.5 gm/dL (4.2-5.5) L 11/26/17 04:40 Globulin 2.6 gm/dL 11/26/17 04:40 Albumin/Globulin Ratio 1.4 (1.0-1.8) 11/26/17 04:40 Triglycerides 115 mg/dL (<150) 11/27/17 04:10 Cholesterol 98 mg/dL (<200) 11/27/17 04:10 LDL Cholesterol Direct 44 mg/dL (75-193) L 11/27/17 04:10 HDL Cholesterol 31 mg/dL (23-92) 11/27/17 04:10 TSH 6.88 uIU/ml (0.34-5.60) H 11/27/17 04:10 Urine Source RANDOM 11/24/17 16:36 Urine Color YELLOW 11/24/17 16:36 Urine Clarity CLEAR (CLEAR) 11/24/17 16:36 Urine pH 5.5 (4.6 - 8.0) 11/24/17 16:36 Ur Specific [place] 1.025 (1.005-1.030) 11/24/17 16:36 Urine Protein NEGATIVE mg/dL (NEGATIVE) 11/24/17 16:36 Urine Glucose (UA) NEGATIVE mg/dL (NEGATIVE) 11/24/17 16:36 Urine Ketones NEGATIVE mg/dL (NEGATIVE) 11/24/17 16:36 Urine Blood TRACE (NEGATIVE) 11/24/17 16:36 Urine Nitrate NEGATIVE (NEGATIVE) 11/24/17 16:36 Urine Bilirubin NEGATIVE (NEGATIVE) 11/24/17 16:36 Urine Urobilinogen 0.2 E.U./dL (0.2 - 1.0) 11/24/17 16:36 Ur Leukocyte Esterase NEGATIVE (NEGATIVE) 11/24/17 16:36 Urine RBC 0-2 /hpf (0-5) H 11/24/17 16:36 Urine WBC 2-5 /hpf (0-5) 11/24/17 16:36 Ur Epithelial Cells FEW /lpf (FEW) 11/24/17 16:36 Urine Bacteria NONE SEEN /hpf (NONE SEEN) 11/24/17 16:36 - Physical Exam Vitals and I&O: Vital Signs Temp 98.2 F 11/27/17 12:00 Pulse 64 11/27/17 14:00 Resp 14 11/27/17 14:00 BP 153/85 11/27/17 14:00 Pulse Ox 99 11/27/17 14:00 Intake & Output 11/26/17 11/27/17 11/27/17 18:59 06:59 18:59 Intake Total 2120 360 Output Total 800 700 Balance 1320 -340 Weight (lbs) 111.13 kg 111.13 kg 111.13 kg Intake: Intake, IV Amount 1000 Sodium Chloride 0.45% 1, 1000 000 ml @ 75 mls/hr IV . [id number] [facility] Rx#:[id number] Oral 1120 360 Output: Urine 800 700 Other: # Bowel Movements 0 Weight Source Bedscale Bedscale Bedscale Active Medications: Current Medications Acetaminophen/Hydrocodone Bitart ([place] 5mg/325mg) 1 tab PO Q6H PRN PRN Reason: Severe Pain Stop: 01/23/18 22:40 Last Admin: 11/27/17 13:50 Dose: 1 tab Atorvastatin Calcium (Lipitor) 10 mg PO HS [facility]; Protocol Stop: 01/26/18 20:59 Sodium Chloride (Nacl 0.45%) 1,000 mls @ 75 mls/hr IV .[id number] [facility] Stop: 01/23/18 21:44 Last Admin: 11/26/17 15:36 Dose: 75 mls/hr Insulin Aspart (Novolog Insulin Sliding Scale) 0 units SUBQ ACHS [facility]; Protocol Stop: 01/24/18 07:29 Last Admin: 11/27/17 12:09 Dose: 2 units Lisinopril (Zestril) 40 mg PO DAILY [facility] Stop: 01/27/18 08:59 Mupirocin (Bactroban Oint) 1 appl TP BID [facility] Stop: 01/25/18 16:59 Last Admin: 11/27/17 17:03 Dose: 1 appl Sotalol HCl (Betapace) 80 mg PO DAILY [facility] Stop: 01/24/18 11:59 Last Admin: 11/27/17 12:08 Dose: 80 mg Tramadol HCl (Ultram) 50 mg PO Q6HR PRN PRN Reason: Leg Cramps Stop: 01/23/18 21:34 Last Admin: 11/24/17 22:39 Dose: 50 mg General: alert, obese HEENT: NC/AT, PERRLA, EOMI, anicteric sclerae, throat clear Neck: Supple, No JVD, No thyromegaly, +2 carotid pulse wo bruit, No LAD Lungs: CTAB Cardiovascular: RRR, Normal S1, Normal S2, without murmur Abdomen: soft, non-tender, non-distended Extremities: edema, rash Neurological: no change Internal Medicine Assmt/Plan - Assessment Assessment: 1.ACUTE RENAL FAILURE.improving. 2.DM. 3.CHRONIC AFIB, 4.HTN 5.TREMOR OF UPPER EXTREM. - Plan Plan: CONTINUE ON CURRENT MEDICATION AND DIET.transfer to telemetry. Nutritional Asmnt/Malnutr-PDOC - Dietary Evaluation Malnutrition Findings (Please click <Entered> for more info): Nutritional Asmnt/Malnutrition Start: 11/25/17 09: 39 Text: Status: Complete Freq: Protocol: Document 11/25/17 09:39 LLUC (Rec: 11/25/17 09:53 LLUC LUIS [id number]) Nutritional Asmnt/Malnutrition Patient General Information Nutritional Screening High Risk Consult Diagnosis ARF, Severe hyperkalemia Pertinent Medical Hx/Surgical Hx ARF 2/2 ATN, DM 2, HTN, CHF, obesity, arthritis b/L knee DJD, Dyslipidemia, A Fib, Tremor Subjective Information Consult received for Vijay Hogan . Patient seen in room with son. Patient reports feeling better, said no issues with appetite but intake inadequate per EMR. Patient reported no dialysis per MD. RD reviewed CKD diet with patient and son; encouraged low sodium/ potassium diet. and daughter manages meals. RD to provide additional education to and daughter upon f/u and discharge. Current Diet Order/ Nutrition Support Renal Patient / S.O Can Pertinent Medications novolog Pertinent Labs 11/25: K+ 4.8 (improved), BUN 88, Creat 4.9, Gluc 139-146, Alb 3.6 (decreased) 11/24: K+ 6.7, BUN 99, Creat 5. 9, Alb 4 Nutritional Hx/Data Height 1.75 m Height (Calculated Centimeters) 175.3 Current Weight (lbs) 111.13 kg Weight (Calculated Kilograms) 111.1 Weight (Calculated Grams) 627950.1 [place] Body Weight 160 % [place] Body Weight 153 Body Mass Index (BMI) 36.1 Weight Status Morbidly Obese GI Symptoms GI Symptoms None Last BM 11/25 Difficult in: None Food Allergies No Usual diet at home no specific diet at home Skin Integrity/Comment: Vijay 12; R foot reddened, b/ l lower leg abrasion, R face abrasion Current %PO Fair (50-74%) Estimated Nutritional Goals BEE in Kcals: Adj wt of IBW Calories/Kcals/Kg 22-25 Kcals Calculated 3170-5833 Protein: Adj wt of IBW Protein g/k.6-0.8 Protein Calculated 50-66 d/t elevated BUN/Creat not on dialysis Fluid: ml per MD Nutritional Problem 1. Problem Problem Altered nutrition-related labs Etiology renal insufficiency Signs/Symptoms: elevated BUN/Creat Intervention/Recommendation Comments 1. Recommend continuing renal diet. 2. Recommend adding arginine for wound healing. Expected Outcomes/Goals Expected Outcomes/Goals Goal: 1. PO intake to meet at least 75% of nutritional needs. 2. Wt to trend towards IBW, improved skin integrity, labs to approach WNL. Monitor PO intake, wt, labs and skin integrity F/U as high risk in 2-3 days, 11/27-11/28
[2017-11-27] MEDS: Atorvastatin Calcium 10 MG TAB PO SCH (21:53)
[2017-11-28 06:25] LABS: % BASOPHILS 0.5 % (0.0-2.0); % EOSINOPHILS 0.4 % (0.0-5.0); % MONOCYTES 7.7 % (2.0-10.0); % NEUTROPHILS 85.4 % (40.0-80.0); HEMATOCRIT 33.7 % (41.0-60); HEMOGLOBIN 11.6 gm/dL (12-16); LYMPHOCYTE ABSOLUTE 0.6 Th/cmm (1.5-3.0); MEAN CELL VOLUME 97.4 fl (80-99); MEAN CORPUSCULAR HEMOGLOBIN 33.4 pg (27.0-31.0); MEAN CORPUSCULAR HGB CONC 34.3 pg (28.0-36.0); MEAN PLATELET VOLUME 7.8 fl; MONOCYTE ABSOLUTE 0.8 Th/cmm (0.3-1.0); NEUTROPHILE ABSOLUTE 8.5 Th/cmm (1.8-8.0); PLATELET COUNT 226 Th/cmm (150-400); RED BLOOD COUNT 3.46 Mil/cmm (3.80-5.80); RED CELL DISTRIBUTION WIDTH 11.4 % (11.5-20.0); WHITE BLOOD COUNT 9.9 Th/cmm (4.8-10.8)
[2017-11-28 06:28] LABS: ALB/GLOB RATIO 1.2 (1.0-1.8); ALBUMIN 3.4 gm/dL (4.2-5.5); ALKALINE PHOSPHATASE 72 U/L (34-104); ANION GAP 10.3 (7.0-16.0); BILIRUBIN,TOTAL 0.8 mg/dL (0.3-1.0); BUN - UREA NITROGEN 30 mg/dL (7-25); CALCIUM SERUM 8.7 mg/dL (8.6-10.3); CARBON DIOXIDE 25.6 mEq/L (21.0-31.0); CHLORIDE 96 mEq/L (98-107); CREATININE - SERUM 1.4 mg/dL (0.7-1.3); GLUCOSE 130 mg/dL (70-105); POTASSIUM SERUM 4.9 mEq/L (3.5-5.1); SGOT 34 U/L (13-39); SGPT/ALT 28 U/L (7-52); SODIUM SERUM 127 mEq/L (136-145); TOTAL PROTEIN,SERUM 6.3 gm/dL (6.0-8.3)
[2017-11-28] MEDS: INSULIN ASPART SLIDING SCALE 100 UNITS/ML UNIT SUBQ SCH ×4 (06:59→21:07)
[2017-11-28 08:11] LABS: T3 FREE 2.3 pg/mL (2.0-4.4); T4 FREE 1.21 ng/dL (0.82-1.77)
[2017-11-28] MEDS: Vancomycin HCl 1.5 GM in Sodium Chloride 0.9% 500 ML IV SCH (09:55)
--- NOTE | 2017-11-28 10:20 | General Progress Note ---
Subjective - Review of Systems Service Date: 11/28/17 Subjective: pt in bed. no distress. confused [place] out Objective - Results Result Diagrams: 11/28/17 05:15 11/28/17 05:15 Recent Labs: Laboratory Last Values WBC 9.9 Th/cmm (4.8-10.8) 11/28/17 05:15 RBC 3.46 Mil/cmm (3.80-5.80) L 11/28/17 05:15 Hgb 11.6 gm/dL (12-16) L 11/28/17 05:15 Hct 33.7 % (41.0-60) L 11/28/17 05:15 MCV 97.4 fl (80-99) 11/28/17 05:15 MCH 33.4 pg (27.0-31.0) H 11/28/17 05:15 MCHC Differential 34.3 pg (28.0-36.0) 11/28/17 05:15 RDW 11.4 % (11.5-20.0) L 11/28/17 05:15 Plt Count 226 Th/cmm (150-400) 11/28/17 05:15 MPV 7.8 fl 11/28/17 05:15 Neutrophils % 85.4 % (40.0-80.0) H 11/28/17 05:15 Lymphocytes % 6.0 % (20.0-50.0) L 11/28/17 05:15 Monocytes % 7.7 % (2.0-10.0) 11/28/17 05:15 Eosinophils % 0.4 % (0.0-5.0) 11/28/17 05:15 Basophils % 0.5 % (0.0-2.0) 11/28/17 05:15 PT 10.6 SECONDS (9.5-11.5) 11/24/17 16:50 INR 1.02 (0.5-1.4) 11/24/17 16:50 PTT (Actin FS) 23.0 SECONDS (26.0-38.0) L 11/24/17 16:50 Sodium 127 mEq/L (136-145) L 11/28/17 05:15 Potassium 4.9 mEq/L (3.5-5.1) 11/28/17 05:15 Chloride 96 mEq/L (98-107) L 11/28/17 05:15 Carbon Dioxide 25.6 mEq/L (21.0-31.0) 11/28/17 05:15 Anion Gap 10.3 (7.0-16.0) 11/28/17 05:15 BUN 30 mg/dL (7-25) H 11/28/17 05:15 Creatinine 1.4 mg/dL (0.7-1.3) H 11/28/17 05:15 Est GFR ( Amer) TNP 11/28/17 05:15 Est GFR (Non-Af Amer) TNP 11/28/17 05:15 BUN/Creatinine Ratio 21.4 11/28/17 05:15 Glucose 130 mg/dL (70-105) H 11/28/17 05:15 POC Glucose 132 MG/DL (70 - 105) H 11/28/17 06:06 Calcium 8.7 mg/dL (8.6-10.3) 11/28/17 05:15 Total Bilirubin 0.8 mg/dL (0.3-1.0) 11/28/17 05:15 AST 34 U/L (13-39) 11/28/17 05:15 ALT 28 U/L (7-52) 11/28/17 05:15 Alkaline Phosphatase 72 U/L (34-104) 11/28/17 05:15 Troponin I < 0.01 ng/mL (0.01-0.05) L 11/24/17 16:50 B-Natriuretic Peptide 83.2 pg/mL (5.0-100.0) 11/24/17 16:50 Total Protein 6.3 gm/dL (6.0-8.3) 11/28/17 05:15 Albumin 3.4 gm/dL (4.2-5.5) L 11/28/17 05:15 Globulin 2.9 gm/dL 11/28/17 05:15 Albumin/Globulin Ratio 1.2 (1.0-1.8) 11/28/17 05:15 Triglycerides 115 mg/dL (<150) 11/27/17 04:10 Cholesterol 98 mg/dL (<200) 11/27/17 04:10 LDL Cholesterol Direct 44 mg/dL (75-193) L 11/27/17 04:10 HDL Cholesterol 31 mg/dL (23-92) 11/27/17 04:10 Free T4 1.21 ng/dL (0.82-1.77) 11/27/17 04:10 Free T3 2.3 pg/mL (2.0-4.4) 11/27/17 04:10 TSH 6.88 uIU/ml (0.34-5.60) H 11/27/17 04:10 Urine Source RANDOM 11/24/17 16:36 Urine Color YELLOW 11/24/17 16:36 Urine Clarity CLEAR (CLEAR) 11/24/17 16:36 Urine pH 5.5 (4.6 - 8.0) 11/24/17 16:36 Ur Specific [place] 1.025 (1.005-1.030) 11/24/17 16:36 Urine Protein NEGATIVE mg/dL (NEGATIVE) 11/24/17 16:36 Urine Glucose (UA) NEGATIVE mg/dL (NEGATIVE) 11/24/17 16:36 Urine Ketones NEGATIVE mg/dL (NEGATIVE) 11/24/17 16:36 Urine Blood TRACE (NEGATIVE) 11/24/17 16:36 Urine Nitrate NEGATIVE (NEGATIVE) 11/24/17 16:36 Urine Bilirubin NEGATIVE (NEGATIVE) 11/24/17 16:36 Urine Urobilinogen 0.2 E.U./dL (0.2 - 1.0) 11/24/17 16:36 Ur Leukocyte Esterase NEGATIVE (NEGATIVE) 11/24/17 16:36 Urine RBC 0-2 /hpf (0-5) H 11/24/17 16:36 Urine WBC 2-5 /hpf (0-5) 11/24/17 16:36 Ur Epithelial Cells FEW /lpf (FEW) 11/24/17 16:36 Urine Bacteria NONE SEEN /hpf (NONE SEEN) 11/24/17 16:36 - Physical Exam Vitals and I&O: Vital Signs Temp 97.9 F 11/28/17 07:48 Pulse 69 11/28/17 08:59 Resp 20 11/28/17 07:48 BP 146/52 11/28/17 08:59 Pulse Ox 100 11/28/17 07:48 Intake & Output 11/27/17 11/28/17 11/28/17 18:59 06:59 18:59 Intake Total 1160 Output Total 1700 Balance -540 Weight (lbs) 116.12 kg Intake: Oral 1160 Output: Urine 1700 Other: # Bowel Movements 0 Weight Source Bedscale Active Medications: Current Medications Acetaminophen (Tylenol) 650 mg PO Q4H PRN PRN Reason: Pain or Fever >101 Stop: 01/26/18 20:30 Last Admin: 11/27/17 21:52 Dose: 650 mg Acetaminophen/Hydrocodone Bitart ([place] 5mg/325mg) 1 tab PO Q6H PRN PRN Reason: Severe Pain Stop: 01/23/18 22:40 Last Admin: 11/27/17 13:50 Dose: 1 tab Alprazolam (Xanax) 0.25 mg PO Q6H PRN; Protocol PRN Reason: restlessness Stop: 01/26/18 19:41 Last Admin: 11/27/17 21:54 Dose: 0.25 mg Atorvastatin Calcium (Lipitor) 10 mg PO HS [facility]; Protocol Stop: 01/26/18 20:59 Last Admin: 11/27/17 21:53 Dose: 10 mg Sodium Chloride (Nacl 0.45%) 1,000 mls @ 75 mls/hr IV .[id number] [facility] Stop: 01/23/18 21:44 Last Admin: 11/26/17 15:36 Dose: 75 mls/hr Vancomycin HCl 1.5 gm/ Sodium (Chloride) 500 mls @ 250 mls/hr IV Q24HR@0900 [facility] Stop: 01/27/18 09:59 Last Admin: 11/28/17 09:55 Dose: 250 mls/hr Insulin Aspart (Novolog Insulin Sliding Scale) 0 units SUBQ ACHS [facility]; Protocol Stop: 01/24/18 07:29 Last Admin: 11/28/17 06:59 Dose: Not Given Lisinopril (Zestril) 40 mg PO DAILY [facility] Stop: 01/27/18 08:59 Last Admin: 11/28/17 08:59 Dose: 40 mg Miscellaneous (Vancomycin Iv Per Pharmacy) 1 ea MC PRN PRN PRN Reason: PROTOCOL Stop: 01/26/18 21:02 Mupirocin (Bactroban Oint) 1 appl TP BID [facility] Stop: 01/25/18 16:59 Last Admin: 11/28/17 08:58 Dose: 1 appl Sotalol HCl (Betapace) 80 mg PO DAILY [facility] Stop: 01/24/18 11:59 Last Admin: 11/28/17 08:58 Dose: 80 mg Temazepam (Restoril) 15 mg PO HS PRN; Protocol PRN Reason: Insomnia Stop: 01/26/18 19:40 Last Admin: 11/28/17 03:02 Dose: 15 mg Tramadol HCl (Ultram) 50 mg PO Q6HR PRN PRN Reason: Leg Cramps Stop: 01/23/18 21:34 Last Admin: 11/27/17 21:53 Dose: 50 mg General: Alert, Oriented x3 HEENT: Atraumatic, PERRLA, EOMI Neck: Supple Cardiovascular: Regular rate, Normal S1, Normal S2 Lungs: Clear to auscultation Abdomen: Bowel sounds, Soft Extremities: Edema Assessment/Plan - Assessment Assessment: ACUTE RENAL FAILURE SECONDARY TO ATN HYPERKALEMIA HYPONATREMIA METABOLIC ACIDOSIS DM HTN AFIB - Plan Plan: POTASSIUM SODIUM AND KIDNEY FUNCTION IMPROVED Nutritional Asmnt/Malnutr-PDOC - Dietary Evaluation Malnutrition Findings (Please click <Entered> for more info): Nutritional Asmnt/Malnutrition Start: 11/25/17 09: 39 Text: Status: Complete Freq: Protocol: Document 11/25/17 09:39 LLUC (Rec: 11/25/17 09:53 LLUC LU[facility] [email or web address]) Nutritional Asmnt/Malnutrition Patient General Information Nutritional Screening High Risk Consult Diagnosis ARF, Severe hyperkalemia Pertinent Medical Hx/Surgical Hx ARF 2/2 ATN, DM 2, HTN, CHF, obesity, arthritis b/L knee DJD, Dyslipidemia, A Fib, Tremor Subjective Information Consult received for Vijay Hogan . Patient seen in room with son. Patient reports feeling better, said no issues with appetite but intake inadequate per EMR. Patient reported no dialysis per MD. RD reviewed CKD diet with patient and son; encouraged low sodium/ potassium diet. and daughter manages meals. RD to provide additional education to and daughter upon f/u and discharge. Current Diet Order/ Nutrition Support Renal Patient / S.O Can Pertinent Medications novolog Pertinent Labs 11/25: K+ 4.8 (improved), BUN 88, Creat 4.9, Gluc 139-146, Alb 3.6 (decreased) 11/24: K+ 6.7, BUN 99, Creat 5. 9, Alb 4 Nutritional Hx/Data Height 1.75 m Height (Calculated Centimeters) 175.3 Current Weight (lbs) 111.13 kg Weight (Calculated Kilograms) 111.1 Weight (Calculated Grams) 214879.1 [place] Body Weight 160 % [place] Body Weight 153 Body Mass Index (BMI) 36.1 Weight Status Morbidly Obese GI Symptoms GI Symptoms None Last BM 11/25 Difficult in: None Food Allergies No Usual diet at home no specific diet at home Skin Integrity/Comment: Vijay 12; R foot reddened, b/ l lower leg abrasion, R face abrasion Current %PO Fair (50-74%) Estimated Nutritional Goals BEE in Kcals: Adj wt of IBW Calories/Kcals/Kg 22-25 Kcals Calculated 6089-3510 Protein: Adj wt of IBW Protein g/k.6-0.8 Protein Calculated 50-66 d/t elevated BUN/Creat not on dialysis Fluid: ml per MD Nutritional Problem 1. Problem Problem Altered nutrition-related labs Etiology renal insufficiency Signs/Symptoms: elevated BUN/Creat Intervention/Recommendation Comments 1. Recommend continuing renal diet. 2. Recommend adding arginine for wound healing. Expected Outcomes/Goals Expected Outcomes/Goals Goal: 1. PO intake to meet at least 75% of nutritional needs. 2. Wt to trend towards IBW, improved skin integrity, labs to approach WNL. Monitor PO intake, wt, labs and skin integrity F/U as high risk in 2-3 days, 11/27-11/28
[2017-11-28] MEDS: Levofloxacin 250mg/50mL 250 MG in Premix Fluid 1 BAG IV SCH (14:07)
--- NOTE | 2017-11-28 16:54 | Cardiology ---
11/27/[address] Saleh. PROCEDURE: Echocardiogram. M-MODE ECHOCARDIOGRAM: Mitral valve, anterior leaflet of mitral valve shows normal excursion, EF velocity. Posterior leaflet of mitral valve shows normal excursion. Left ventricle posterior wall shows increased thickness, normal excursion. Interventricular septum shows increased thickness, normal excursion, hypertrophy of the left ventricle, ejection fraction 55%. Left atrium enlarged 4.4 cm. Aortic root shows normal dimension, normal excursion of aortic leaflets. CONCLUSION: Hypertrophy of the left ventricle, left atrial enlargement, ejection fraction 55%. 2D ECHO: Long axis view showed normal sized left ventricle with hypertrophy of the left ventricle. Left atrium enlarged. Aortic root shows normal dimension, normal excursion of aortic leaflets. Short axis view of mitral valve normal. Short axis view of aortic valve normal. Apical four chamber view showed normal sized left ventricle with hypertrophy of the left ventricle. Left atrium enlarged. Right ventricular cavity, right atrium normal, no pericardial effusion. CONCLUSION: Hypertrophy of the left ventricle. Left atrial enlargement, ejection fraction 55%. Doppler study shows mild mitral regurg, mild tricuspid regurg, mild aortic regurgitation. Right ventricle systolic pressure 30 mmHg. JOB# [id number]
--- NOTE | 2017-11-28 19:52 | Internal Medicine Prog Note ---
Internal Medicine Subjective - Subjective Service Date: 11/28/17 Patient seen and examined:: with staff (HE FEELS BETTER,NO FEVER.) Patient is:: awake, verbal, in bed, talking Per staff patient has:: no adverse event Internal Medicine Objective - Results Result Diagrams: 11/28/17 05:15 11/28/17 05:15 Recent Labs: Laboratory Last Values WBC 9.9 Th/cmm (4.8-10.8) 11/28/17 05:15 RBC 3.46 Mil/cmm (3.80-5.80) L 11/28/17 05:15 Hgb 11.6 gm/dL (12-16) L 11/28/17 05:15 Hct 33.7 % (41.0-60) L 11/28/17 05:15 MCV 97.4 fl (80-99) 11/28/17 05:15 MCH 33.4 pg (27.0-31.0) H 11/28/17 05:15 MCHC Differential 34.3 pg (28.0-36.0) 11/28/17 05:15 RDW 11.4 % (11.5-20.0) L 11/28/17 05:15 Plt Count 226 Th/cmm (150-400) 11/28/17 05:15 MPV 7.8 fl 11/28/17 05:15 Neutrophils % 85.4 % (40.0-80.0) H 11/28/17 05:15 Lymphocytes % 6.0 % (20.0-50.0) L 11/28/17 05:15 Monocytes % 7.7 % (2.0-10.0) 11/28/17 05:15 Eosinophils % 0.4 % (0.0-5.0) 11/28/17 05:15 Basophils % 0.5 % (0.0-2.0) 11/28/17 05:15 PT 10.6 SECONDS (9.5-11.5) 11/24/17 16:50 INR 1.02 (0.5-1.4) 11/24/17 16:50 PTT (Actin FS) 23.0 SECONDS (26.0-38.0) L 11/24/17 16:50 Sodium 127 mEq/L (136-145) L 11/28/17 05:15 Potassium 4.9 mEq/L (3.5-5.1) 11/28/17 05:15 Chloride 96 mEq/L (98-107) L 11/28/17 05:15 Carbon Dioxide 25.6 mEq/L (21.0-31.0) 11/28/17 05:15 Anion Gap 10.3 (7.0-16.0) 11/28/17 05:15 BUN 30 mg/dL (7-25) H 11/28/17 05:15 Creatinine 1.4 mg/dL (0.7-1.3) H 11/28/17 05:15 Est GFR ( Amer) TNP 11/28/17 05:15 Est GFR (Non-Af Amer) TNP 11/28/17 05:15 BUN/Creatinine Ratio 21.4 11/28/17 05:15 Glucose 130 mg/dL (70-105) H 11/28/17 05:15 POC Glucose 131 MG/DL (70 - 105) H 11/28/17 16:17 Calcium 8.7 mg/dL (8.6-10.3) 11/28/17 05:15 Total Bilirubin 0.8 mg/dL (0.3-1.0) 11/28/17 05:15 AST 34 U/L (13-39) 11/28/17 05:15 ALT 28 U/L (7-52) 11/28/17 05:15 Alkaline Phosphatase 72 U/L (34-104) 11/28/17 05:15 Troponin I < 0.01 ng/mL (0.01-0.05) L 11/24/17 16:50 B-Natriuretic Peptide 83.2 pg/mL (5.0-100.0) 11/24/17 16:50 Total Protein 6.3 gm/dL (6.0-8.3) 11/28/17 05:15 Albumin 3.4 gm/dL (4.2-5.5) L 11/28/17 05:15 Globulin 2.9 gm/dL 11/28/17 05:15 Albumin/Globulin Ratio 1.2 (1.0-1.8) 11/28/17 05:15 Triglycerides 115 mg/dL (<150) 11/27/17 04:10 Cholesterol 98 mg/dL (<200) 11/27/17 04:10 LDL Cholesterol Direct 44 mg/dL (75-193) L 11/27/17 04:10 HDL Cholesterol 31 mg/dL (23-92) 11/27/17 04:10 Free T4 1.21 ng/dL (0.82-1.77) 11/27/17 04:10 Free T3 2.3 pg/mL (2.0-4.4) 11/27/17 04:10 TSH 6.88 uIU/ml (0.34-5.60) H 11/27/17 04:10 Urine Source RANDOM 11/24/17 16:36 Urine Color YELLOW 11/24/17 16:36 Urine Clarity CLEAR (CLEAR) 11/24/17 16:36 Urine pH 5.5 (4.6 - 8.0) 11/24/17 16:36 Ur Specific [place] 1.025 (1.005-1.030) 11/24/17 16:36 Urine Protein NEGATIVE mg/dL (NEGATIVE) 11/24/17 16:36 Urine Glucose (UA) NEGATIVE mg/dL (NEGATIVE) 11/24/17 16:36 Urine Ketones NEGATIVE mg/dL (NEGATIVE) 11/24/17 16:36 Urine Blood TRACE (NEGATIVE) 11/24/17 16:36 Urine Nitrate NEGATIVE (NEGATIVE) 11/24/17 16:36 Urine Bilirubin NEGATIVE (NEGATIVE) 11/24/17 16:36 Urine Urobilinogen 0.2 E.U./dL (0.2 - 1.0) 11/24/17 16:36 Ur Leukocyte Esterase NEGATIVE (NEGATIVE) 11/24/17 16:36 Urine RBC 0-2 /hpf (0-5) H 11/24/17 16:36 Urine WBC 2-5 /hpf (0-5) 11/24/17 16:36 Ur Epithelial Cells FEW /lpf (FEW) 11/24/17 16:36 Urine Bacteria NONE SEEN /hpf (NONE SEEN) 11/24/17 16:36 - Physical Exam Vitals and I&O: Vital Signs Temp 98.1 F 11/28/17 16:26 Pulse 61 11/28/17 16:26 Resp 20 11/28/17 16:26 BP 140/66 11/28/17 16:26 Pulse Ox 96 11/28/17 16:26 Intake & Output 0611/28/1718 06:59 18:59 06:59 Intake Total 1050 Balance 1050 Weight (lbs) 116.12 kg Intake: Oral 1050 Other: # Voids 3 # Bowel Movements 1 Weight Source Bedscale Active Medications: Current Medications Acetaminophen (Tylenol) 650 mg PO Q4H PRN PRN Reason: Pain or Fever >101 Stop: 01/26/18 20:30 Last Admin: 11/27/17 21:52 Dose: 650 mg Acetaminophen/Hydrocodone Bitart ([place] 5mg/325mg) 1 tab PO Q6H PRN PRN Reason: Severe Pain Stop: 01/23/18 22:40 Last Admin: 11/27/17 13:50 Dose: 1 tab Alprazolam (Xanax) 0.25 mg PO Q6H PRN; Protocol PRN Reason: restlessness Stop: 01/26/18 19:41 Last Admin: 11/27/17 21:54 Dose: 0.25 mg Atorvastatin Calcium (Lipitor) 10 mg PO HS [facility]; Protocol Stop: 01/26/18 20:59 Last Admin: 11/27/17 21:53 Dose: 10 mg Sodium Chloride (Nacl 0.45%) 1,000 mls @ 75 mls/hr IV .[id number] [facility] Stop: 01/23/18 21:44 Last Admin: 11/26/17 15:36 Dose: 75 mls/hr Vancomycin HCl 1.5 gm/ Sodium (Chloride) 500 mls @ 250 mls/hr IV Q24HR@0900 [facility] Stop: 01/27/18 09:59 Last Admin: 11/28/17 09:55 Dose: 250 mls/hr Levofloxacin 250 mg/ (Miscellaneous) 50 mls @ 50 mls/hr IV Q24H [facility] Stop: 01/27/18 12:59 Last Admin: 11/28/17 14:07 Dose: 50 mls/hr Insulin Aspart (Novolog Insulin Sliding Scale) 0 units SUBQ ACHS [facility]; Protocol Stop: 01/24/18 07:29 Last Admin: 11/28/17 16:39 Dose: Not Given Lisinopril (Zestril) 40 mg PO DAILY [facility] Stop: 01/27/18 08:59 Last Admin: 11/28/17 08:59 Dose: 40 mg Miscellaneous (Vancomycin Iv Per Pharmacy) 1 ea MC PRN PRN PRN Reason: PROTOCOL Stop: 01/26/18 21:02 Mupirocin (Bactroban Oint) 1 appl TP BID [facility] Stop: 01/25/18 16:59 Last Admin: 11/28/17 16:41 Dose: 1 appl Sotalol HCl (Betapace) 80 mg PO DAILY [facility] Stop: 01/24/18 11:59 Last Admin: 11/28/17 08:58 Dose: 80 mg Temazepam (Restoril) 15 mg PO HS PRN; Protocol PRN Reason: Insomnia Stop: 01/26/18 19:40 Last Admin: 11/28/17 03:02 Dose: 15 mg Tramadol HCl (Ultram) 50 mg PO Q6HR PRN PRN Reason: Leg Cramps Stop: 01/23/18 21:34 Last Admin: 11/27/17 21:53 Dose: 50 mg General: alert, obese HEENT: NC/AT, PERRLA, EOMI, anicteric sclerae, throat clear Neck: Supple, No JVD, No thyromegaly, +2 carotid pulse wo bruit, No LAD Lungs: CTAB Cardiovascular: RRR, Normal S1, Normal S2, without murmur Abdomen: soft, non-tender, non-distended Extremities: edema, rash Neurological: no change Internal Medicine Assmt/Plan - Assessment Assessment: 1.ACUTE RENAL FAILURE.improving. 2.DM. 3.CHRONIC AFIB, 4.HTN 5.TREMOR OF UPPER EXTREM. 6.FEVER - Plan Plan: CONTINUE ON CURRENT MEDICATION AND DIET.CASE DW FAMILY. Nutritional Asmnt/Malnutr-PDOC - Dietary Evaluation Malnutrition Findings (Please click <Entered> for more info): Nutritional Asmnt/Malnutrition Start: 11/25/17 09: 39 Text: Status: Complete Freq: Protocol: Document 11/25/17 09:39 LLUC (Rec: 11/25/17 09:53 LLUC LUIS [email or web address]) Nutritional Asmnt/Malnutrition Patient General Information Nutritional Screening High Risk Consult Diagnosis ARF, Severe hyperkalemia Pertinent Medical Hx/Surgical Hx ARF 2/2 ATN, DM 2, HTN, CHF, obesity, arthritis b/L knee DJD, Dyslipidemia, A Fib, Tremor Subjective Information Consult received for Vijay 12 . Patient seen in room with son. Patient reports feeling better, said no issues with appetite but intake inadequate per EMR. Patient reported no dialysis per MD. RD reviewed CKD diet with patient and son; encouraged low sodium/ potassium diet. and daughter manages meals. RD to provide additional education to and daughter upon f/u and discharge. Current Diet Order/ Nutrition Support Renal Patient / S.O Can Pertinent Medications novolog Pertinent Labs 11/25: K+ 4.8 (improved), BUN 88, Creat 4.9, Gluc 139-146, Alb 3.6 (decreased) 11/24: K+ 6.7, BUN 99, Creat 5. 9, Alb 4 Nutritional Hx/Data Height 1.75 m Height (Calculated Centimeters) 175.3 Current Weight (lbs) 111.13 kg Weight (Calculated Kilograms) 111.1 Weight (Calculated Grams) 460782.1 [place] Body Weight 160 % [place] Body Weight 153 Body Mass Index (BMI) 36.1 Weight Status Morbidly Obese GI Symptoms GI Symptoms None Last BM 11/25 Difficult in: None Food Allergies No Usual diet at home no specific diet at home Skin Integrity/Comment: Vijay 12; R foot reddened, b/ l lower leg abrasion, R face abrasion Current %PO Fair (50-74%) Estimated Nutritional Goals BEE in Kcals: Adj wt of IBW Calories/Kcals/Kg 22-25 Kcals Calculated 3664-7348 Protein: Adj wt of IBW Protein g/k.6-0.8 Protein Calculated 50-66 d/t elevated BUN/Creat not on dialysis Fluid: ml per MD Nutritional Problem 1. Problem Problem Altered nutrition-related labs Etiology renal insufficiency Signs/Symptoms: elevated BUN/Creat Intervention/Recommendation Comments 1. Recommend continuing renal diet. 2. Recommend adding arginine for wound healing. Expected Outcomes/Goals Expected Outcomes/Goals Goal: 1. PO intake to meet at least 75% of nutritional needs. 2. Wt to trend towards IBW, improved skin integrity, labs to approach WNL. Monitor PO intake, wt, labs and skin integrity F/U as high risk in 2-3 days, 11/27-11/28
[2017-11-28] MEDS: Atorvastatin Calcium 10 MG TAB PO SCH (21:06)
[2017-11-29] MEDS: INSULIN ASPART SLIDING SCALE 100 UNITS/ML UNIT SUBQ SCH ×4 (06:33→20:24)
[2017-11-29] MEDS: Sodium Chloride 0.45% 1,000 ML IV SCH (09:03)
[2017-11-29 09:09] LABS: ANION GAP 8.6 (7.0-16.0); BUN - UREA NITROGEN 25 mg/dL (7-25); CALCIUM SERUM 8.5 mg/dL (8.6-10.3); CARBON DIOXIDE 27.6 mEq/L (21.0-31.0); CHLORIDE 94 mEq/L (98-107); CREATININE - SERUM 1.4 mg/dL (0.7-1.3); GLUCOSE 140 mg/dL (70-105); POTASSIUM SERUM 4.2 mEq/L (3.5-5.1); SODIUM SERUM 126 mEq/L (136-145)
[2017-11-29] MEDS: Vancomycin HCl 1.5 GM in Sodium Chloride 0.9% 500 ML IV SCH (10:32)
--- NOTE | 2017-11-29 10:44 | General Progress Note ---
Subjective - Review of Systems Service Date: 11/29/17 Subjective: pt in bed. Objective - Results Result Diagrams: 11/28/17 05:15 11/29/17 08:15 Recent Labs: Laboratory Last Values WBC 9.9 Th/cmm (4.8-10.8) 11/28/17 05:15 RBC 3.46 Mil/cmm (3.80-5.80) L 11/28/17 05:15 Hgb 11.6 gm/dL (12-16) L 11/28/17 05:15 Hct 33.7 % (41.0-60) L 11/28/17 05:15 MCV 97.4 fl (80-99) 11/28/17 05:15 MCH 33.4 pg (27.0-31.0) H 11/28/17 05:15 MCHC Differential 34.3 pg (28.0-36.0) 11/28/17 05:15 RDW 11.4 % (11.5-20.0) L 11/28/17 05:15 Plt Count 226 Th/cmm (150-400) 11/28/17 05:15 MPV 7.8 fl 11/28/17 05:15 Neutrophils % 85.4 % (40.0-80.0) H 11/28/17 05:15 Lymphocytes % 6.0 % (20.0-50.0) L 11/28/17 05:15 Monocytes % 7.7 % (2.0-10.0) 11/28/17 05:15 Eosinophils % 0.4 % (0.0-5.0) 11/28/17 05:15 Basophils % 0.5 % (0.0-2.0) 11/28/17 05:15 PT 10.6 SECONDS (9.5-11.5) 11/24/17 16:50 INR 1.02 (0.5-1.4) 11/24/17 16:50 PTT (Actin FS) 23.0 SECONDS (26.0-38.0) L 11/24/17 16:50 Sodium 126 mEq/L (136-145) L 11/29/17 08:15 Potassium 4.2 mEq/L (3.5-5.1) 11/29/17 08:15 Chloride 94 mEq/L (98-107) L 11/29/17 08:15 Carbon Dioxide 27.6 mEq/L (21.0-31.0) 11/29/17 08:15 Anion Gap 8.6 (7.0-16.0) 11/29/17 08:15 BUN 25 mg/dL (7-25) 11/29/17 08:15 Creatinine 1.4 mg/dL (0.7-1.3) H 11/29/17 08:15 Est GFR ( Amer) TNP 11/29/17 08:15 Est GFR (Non-Af Amer) TNP 11/29/17 08:15 BUN/Creatinine Ratio 17.9 11/29/17 08:15 Glucose 140 mg/dL (70-105) H 11/29/17 08:15 POC Glucose 134 MG/DL (70 - 105) H 11/29/17 05:59 Calcium 8.5 mg/dL (8.6-10.3) L 11/29/17 08:15 Total Bilirubin 0.8 mg/dL (0.3-1.0) 11/28/17 05:15 AST 34 U/L (13-39) 11/28/17 05:15 ALT 28 U/L (7-52) 11/28/17 05:15 Alkaline Phosphatase 72 U/L (34-104) 11/28/17 05:15 Troponin I < 0.01 ng/mL (0.01-0.05) L 11/24/17 16:50 B-Natriuretic Peptide 83.2 pg/mL (5.0-100.0) 11/24/17 16:50 Total Protein 6.3 gm/dL (6.0-8.3) 11/28/17 05:15 Albumin 3.4 gm/dL (4.2-5.5) L 11/28/17 05:15 Globulin 2.9 gm/dL 11/28/17 05:15 Albumin/Globulin Ratio 1.2 (1.0-1.8) 11/28/17 05:15 Triglycerides 115 mg/dL (<150) 11/27/17 04:10 Cholesterol 98 mg/dL (<200) 11/27/17 04:10 LDL Cholesterol Direct 44 mg/dL (75-193) L 11/27/17 04:10 HDL Cholesterol 31 mg/dL (23-92) 11/27/17 04:10 Free T4 1.21 ng/dL (0.82-1.77) 11/27/17 04:10 Free T3 2.3 pg/mL (2.0-4.4) 11/27/17 04:10 TSH 6.88 uIU/ml (0.34-5.60) H 11/27/17 04:10 Urine Source RANDOM 11/24/17 16:36 Urine Color YELLOW 11/24/17 16:36 Urine Clarity CLEAR (CLEAR) 11/24/17 16:36 Urine pH 5.5 (4.6 - 8.0) 11/24/17 16:36 Ur Specific [place] 1.025 (1.005-1.030) 11/24/17 16:36 Urine Protein NEGATIVE mg/dL (NEGATIVE) 11/24/17 16:36 Urine Glucose (UA) NEGATIVE mg/dL (NEGATIVE) 11/24/17 16:36 Urine Ketones NEGATIVE mg/dL (NEGATIVE) 11/24/17 16:36 Urine Blood TRACE (NEGATIVE) 11/24/17 16:36 Urine Nitrate NEGATIVE (NEGATIVE) 11/24/17 16:36 Urine Bilirubin NEGATIVE (NEGATIVE) 11/24/17 16:36 Urine Urobilinogen 0.2 E.U./dL (0.2 - 1.0) 11/24/17 16:36 Ur Leukocyte Esterase NEGATIVE (NEGATIVE) 11/24/17 16:36 Urine RBC 0-2 /hpf (0-5) H 11/24/17 16:36 Urine WBC 2-5 /hpf (0-5) 11/24/17 16:36 Ur Epithelial Cells FEW /lpf (FEW) 11/24/17 16:36 Urine Bacteria NONE SEEN /hpf (NONE SEEN) 11/24/17 16:36 Vancomycin Trough 12.8 ug/mL (5-10) H 11/29/17 08:15 - Physical Exam Vitals and I&O: Vital Signs Temp 96.2 F 11/29/17 07:54 Pulse 57 11/29/17 09:04 Resp 18 11/29/17 07:54 BP 156/66 11/29/17 09:04 Pulse Ox 100 11/29/17 07:54 Intake & Output 06/19/18 06/20/18 06/20/18 18:59 06:59 18:59 Intake Total 1550 50 Output Total 0 Balance 1550 50 Weight (lbs) 116.12 kg 116.12 kg Intake: Intake, IV Amount 500 Vancomycin HCl 1.5 gm In 500 Sodium Chloride 0.9% 500 ml @ 250 mls/hr IV Q24HR@ 0900 [facility] Rx#:[id number] Oral 1050 50 Output: Stool 0 Other: # Voids 3 3 # Bowel Movements 1 Weight Source Bedscale Bedscale Active Medications: Current Medications Acetaminophen (Tylenol) 650 mg PO Q4H PRN PRN Reason: Pain or Fever >101 Stop: 01/26/18 20:30 Last Admin: 11/28/17 21:07 Dose: 650 mg Acetaminophen/Hydrocodone Bitart ([place] 5mg/325mg) 1 tab PO Q6H PRN PRN Reason: Severe Pain Stop: 01/23/18 22:40 Last Admin: 11/27/17 13:50 Dose: 1 tab Alprazolam (Xanax) 0.25 mg PO Q6H PRN; Protocol PRN Reason: restlessness Stop: 01/26/18 19:41 Last Admin: 11/27/17 21:54 Dose: 0.25 mg Atorvastatin Calcium (Lipitor) 10 mg PO HS [facility]; Protocol Stop: 01/26/18 20:59 Last Admin: 11/28/17 21:06 Dose: 10 mg Sodium Chloride (Nacl 0.45%) 1,000 mls @ 75 mls/hr IV .[id number] [facility] Stop: 01/23/18 21:44 Last Admin: 11/29/17 09:03 Dose: 75 mls/hr Vancomycin HCl 1.5 gm/ Sodium (Chloride) 500 mls @ 250 mls/hr IV Q24HR@0900 [facility] Stop: 01/27/18 09:59 Last Admin: 11/29/17 10:32 Dose: 250 mls/hr Levofloxacin 250 mg/ (Miscellaneous) 50 mls @ 50 mls/hr IV Q24H [facility] Stop: 01/27/18 12:59 Last Admin: 11/28/17 14:07 Dose: 50 mls/hr Insulin Aspart (Novolog Insulin Sliding Scale) 0 units SUBQ ACHS [facility]; Protocol Stop: 01/24/18 07:29 Last Admin: 06/20/18 06:33 Dose: Not Given Lisinopril (Zestril) 40 mg PO DAILY [facility] Stop: 01/27/18 08:59 Last Admin: 11/29/17 09:04 Dose: Not Given Miscellaneous (Vancomycin Iv Per Pharmacy) 1 ea MC PRN PRN PRN Reason: PROTOCOL Stop: 01/26/18 21:02 Mupirocin (Bactroban Oint) 1 appl TP BID [facility] Stop: 01/25/18 16:59 Last Admin: 11/29/17 09:05 Dose: 1 appl Sotalol HCl (Betapace) 80 mg PO DAILY [facility] Stop: 01/24/18 11:59 Last Admin: 11/29/17 09:04 Dose: Not Given Temazepam (Restoril) 15 mg PO HS PRN; Protocol PRN Reason: Insomnia Stop: 01/26/18 19:40 Last Admin: 11/28/17 03:02 Dose: 15 mg Tramadol HCl (Ultram) 50 mg PO Q6HR PRN PRN Reason: Leg Cramps Stop: 01/23/18 21:34 Last Admin: 11/27/17 21:53 Dose: 50 mg General: Alert, Oriented x3 HEENT: Atraumatic, PERRLA, EOMI Neck: Supple Cardiovascular: Regular rate, Normal S1, Normal S2 Lungs: Clear to auscultation Abdomen: Bowel sounds, Soft Extremities: Edema Assessment/Plan - Assessment Assessment: ACUTE RENAL FAILURE SECONDARY TO ATN HYPERKALEMIA HYPONATREMIA METABOLIC ACIDOSIS DM HTN AFIB - Plan Plan: POTASSIUM SODIUM AND KIDNEY FUNCTION IMPROVED DC IVF AND START SMALL DOSE OF LASIX Nutritional Asmnt/Malnutr-PDOC - Dietary Evaluation Malnutrition Findings (Please click <Entered> for more info): Nutritional Asmnt/Malnutrition Start: 11/25/17 09: 39 Text: Status: Complete Freq: Protocol: Document 11/25/17 09:39 LLUC (Rec: 11/25/17 09:53 LLUC LUIS [id number]) Nutritional Asmnt/Malnutrition Patient General Information Nutritional Screening High Risk Consult Diagnosis ARF, Severe hyperkalemia Pertinent Medical Hx/Surgical Hx ARF 2/2 ATN, DM 2, HTN, CHF, obesity, arthritis b/L knee DJD, Dyslipidemia, A Fib, Tremor Subjective Information Consult received for Vijay 12 . Patient seen in room with son. Patient reports feeling better, said no issues with appetite but intake inadequate per EMR. Patient reported no dialysis per MD. RD reviewed CKD diet with patient and son; encouraged low sodium/ potassium diet. and daughter manages meals. RD to provide additional education to and daughter upon f/u and discharge. Current Diet Order/ Nutrition Support Renal Patient / S.O Can Pertinent Medications novolog Pertinent Labs 11/25: K+ 4.8 (improved), BUN 88, Creat 4.9, Gluc 139-146, Alb 3.6 (decreased) 11/24: K+ 6.7, BUN 99, Creat 5. 9, Alb 4 Nutritional Hx/Data Height 1.75 m Height (Calculated Centimeters) 175.3 Current Weight (lbs) 111.13 kg Weight (Calculated Kilograms) 111.1 Weight (Calculated Grams) 186108.1 [place] Body Weight 160 % [place] Body Weight 153 Body Mass Index (BMI) 36.1 Weight Status Morbidly Obese GI Symptoms GI Symptoms None Last BM 11/25 Difficult in: None Food Allergies No Usual diet at home no specific diet at home Skin Integrity/Comment: Vijay 12; R foot reddened, b/ l lower leg abrasion, R face abrasion Current %PO Fair (50-74%) Estimated Nutritional Goals BEE in Kcals: Adj wt of IBW Calories/Kcals/Kg 22-25 Kcals Calculated 1216-4195 Protein: Adj wt of IBW Protein g/k.6-0.8 Protein Calculated 50-66 d/t elevated BUN/Creat not on dialysis Fluid: ml per MD Nutritional Problem 1. Problem Problem Altered nutrition-related labs Etiology renal insufficiency Signs/Symptoms: elevated BUN/Creat Intervention/Recommendation Comments 1. Recommend continuing renal diet. 2. Recommend adding arginine for wound healing. Expected Outcomes/Goals Expected Outcomes/Goals Goal: 1. PO intake to meet at least 75% of nutritional needs. 2. Wt to trend towards IBW, improved skin integrity, labs to approach WNL. Monitor PO intake, wt, labs and skin integrity F/U as high risk in 2-3 days, 11/27-11/28
[2017-11-29] MEDS: Levofloxacin 250mg/50mL 250 MG in Premix Fluid 1 BAG IV SCH (12:54)
--- NOTE | 2017-11-29 17:36 | Consultation ---
DATE OF CONSULTATION: 11/28/2017 HISTORY OF PRESENT ILLNESS: A 72-year-old male referred for neurologic consultation because of tremor. He says he has tremor for many months, on and off. Tremor is predominantly with action. Not much resting tremor. The patient also been complaining of swelling of the lower extremity, generalized weakness. He will fall down. PAST MEDICAL HISTORY: Hypertension, atrial fibrillation, diabetes. The patient has generalized weakness. ALLERGIES: PENICILLIN. MEDICATIONS: As per reconciliation. REVIEW OF SYSTEMS: On direct questioning with the patient is awake, alert. He is walking somewhat unsteady. He says he feels unsure of himself when he walks. The patient has no seizures. No chest pain. Some shortness of breath. No GI bleed. PHYSICAL EXAMINATION: VITAL SIGNS: Temperature 98.2, blood pressure 110/65, pulse is around 168. NECK: Supple, no bruits. HEART: Sounds S1, S2. LUNGS: Clear. NEUROLOGIC: The patient is lying in bed, awake. The patient will answer questions. The patient has a dressing over the lower extremities. NEUROLOGICAL: He knew what day, he is able to answer simple questions. Pupils react to light. No facial weakness. MOTOR: He will lift both arms up. Tone seems okay. He has a tremor which is predominantly action tremor, no resting tremor. There is no significant rigidity or cogwheeling. EXTREMITIES: Lower extremity, he will lift them up, but weak. Reflexes: -1 upper extremity, absent lower extremity. ASSESSMENT: 1. 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 2. Ataxia, unsteadiness. Multifactorial. He has significant neuropathy with really no reflex in lower extremity. The patient should follow up outpatient with Neurology for workup of this. 3. History of hypertension. 4. History atrial fibrillation. 5. Diabetes mellitus. JOB# [id number]
[2017-11-29] MEDS: Atorvastatin Calcium 10 MG TAB PO SCH (20:33)
--- NOTE | 2017-11-29 21:03 | Internal Medicine Prog Note ---
Internal Medicine Subjective - Subjective Service Date: 11/29/17 Patient seen and examined:: without staff (HE FEELS BETTER,NO FEVER.) Patient is:: awake, verbal, in bed, talking Per staff patient has:: no adverse event Internal Medicine Objective - Results Result Diagrams: 11/28/17 05:15 11/29/17 08:15 Recent Labs: Laboratory Last Values WBC 9.9 Th/cmm (4.8-10.8) 11/28/17 05:15 RBC 3.46 Mil/cmm (3.80-5.80) L 11/28/17 05:15 Hgb 11.6 gm/dL (12-16) L 11/28/17 05:15 Hct 33.7 % (41.0-60) L 11/28/17 05:15 MCV 97.4 fl (80-99) 11/28/17 05:15 MCH 33.4 pg (27.0-31.0) H 11/28/17 05:15 MCHC Differential 34.3 pg (28.0-36.0) 11/28/17 05:15 RDW 11.4 % (11.5-20.0) L 11/28/17 05:15 Plt Count 226 Th/cmm (150-400) 11/28/17 05:15 MPV 7.8 fl 11/28/17 05:15 Neutrophils % 85.4 % (40.0-80.0) H 11/28/17 05:15 Lymphocytes % 6.0 % (20.0-50.0) L 11/28/17 05:15 Monocytes % 7.7 % (2.0-10.0) 11/28/17 05:15 Eosinophils % 0.4 % (0.0-5.0) 11/28/17 05:15 Basophils % 0.5 % (0.0-2.0) 11/28/17 05:15 PT 10.6 SECONDS (9.5-11.5) 11/24/17 16:50 INR 1.02 (0.5-1.4) 11/24/17 16:50 PTT (Actin FS) 23.0 SECONDS (26.0-38.0) L 11/24/17 16:50 Sodium 126 mEq/L (136-145) L 11/29/17 08:15 Potassium 4.2 mEq/L (3.5-5.1) 11/29/17 08:15 Chloride 94 mEq/L (98-107) L 11/29/17 08:15 Carbon Dioxide 27.6 mEq/L (21.0-31.0) 11/29/17 08:15 Anion Gap 8.6 (7.0-16.0) 11/29/17 08:15 BUN 25 mg/dL (7-25) 11/29/17 08:15 Creatinine 1.4 mg/dL (0.7-1.3) H 11/29/17 08:15 Est GFR ( Amer) TNP 11/29/17 08:15 Est GFR (Non-Af Amer) TNP 11/29/17 08:15 BUN/Creatinine Ratio 17.9 11/29/17 08:15 Glucose 140 mg/dL (70-105) H 11/29/17 08:15 POC Glucose 274 MG/DL (70 - 105) H 11/29/17 20:20 Calcium 8.5 mg/dL (8.6-10.3) L 11/29/17 08:15 Total Bilirubin 0.8 mg/dL (0.3-1.0) 11/28/17 05:15 AST 34 U/L (13-39) 11/28/17 05:15 ALT 28 U/L (7-52) 11/28/17 05:15 Alkaline Phosphatase 72 U/L (34-104) 11/28/17 05:15 Troponin I < 0.01 ng/mL (0.01-0.05) L 11/24/17 16:50 B-Natriuretic Peptide 83.2 pg/mL (5.0-100.0) 11/24/17 16:50 Total Protein 6.3 gm/dL (6.0-8.3) 11/28/17 05:15 Albumin 3.4 gm/dL (4.2-5.5) L 11/28/17 05:15 Globulin 2.9 gm/dL 11/28/17 05:15 Albumin/Globulin Ratio 1.2 (1.0-1.8) 11/28/17 05:15 Triglycerides 115 mg/dL (<150) 11/27/17 04:10 Cholesterol 98 mg/dL (<200) 11/27/17 04:10 LDL Cholesterol Direct 44 mg/dL (75-193) L 11/27/17 04:10 HDL Cholesterol 31 mg/dL (23-92) 11/27/17 04:10 Free T4 1.21 ng/dL (0.82-1.77) 11/27/17 04:10 Free T3 2.3 pg/mL (2.0-4.4) 11/27/17 04:10 TSH 6.88 uIU/ml (0.34-5.60) H 11/27/17 04:10 Urine Source RANDOM 11/24/17 16:36 Urine Color YELLOW 11/24/17 16:36 Urine Clarity CLEAR (CLEAR) 11/24/17 16:36 Urine pH 5.5 (4.6 - 8.0) 11/24/17 16:36 Ur Specific [place] 1.025 (1.005-1.030) 11/24/17 16:36 Urine Protein NEGATIVE mg/dL (NEGATIVE) 11/24/17 16:36 Urine Glucose (UA) NEGATIVE mg/dL (NEGATIVE) 11/24/17 16:36 Urine Ketones NEGATIVE mg/dL (NEGATIVE) 11/24/17 16:36 Urine Blood TRACE (NEGATIVE) 11/24/17 16:36 Urine Nitrate NEGATIVE (NEGATIVE) 11/24/17 16:36 Urine Bilirubin NEGATIVE (NEGATIVE) 11/24/17 16:36 Urine Urobilinogen 0.2 E.U./dL (0.2 - 1.0) 11/24/17 16:36 Ur Leukocyte Esterase NEGATIVE (NEGATIVE) 11/24/17 16:36 Urine RBC 0-2 /hpf (0-5) H 11/24/17 16:36 Urine WBC 2-5 /hpf (0-5) 11/24/17 16:36 Ur Epithelial Cells FEW /lpf (FEW) 11/24/17 16:36 Urine Bacteria NONE SEEN /hpf (NONE SEEN) 11/24/17 16:36 Vancomycin Trough 12.8 ug/mL (5-10) H 11/29/17 08:15 - Physical Exam Vitals and I&O: Vital Signs Temp 97.1 F 11/29/17 16:13 Pulse 60 11/29/17 16:13 Resp 18 11/29/17 16:13 BP 141/71 11/29/17 16:13 Pulse Ox 100 11/29/17 16:13 Intake & Output 11/29/17 11/29/17 11/30/17 06:59 18:59 06:59 Intake Total 50 1700 Output Total 0 100 Balance 50 1600 Weight (lbs) 116.12 kg 116.12 kg Intake: Oral 50 1700 Output: Urine 100 Stool 0 0 Other: # Voids 3 3 Weight Source Bedscale Bedscale Active Medications: Current Medications Acetaminophen (Tylenol) 650 mg PO Q4H PRN PRN Reason: Pain or Fever >101 Stop: 01/26/18 20:30 Last Admin: 11/28/17 21:07 Dose: 650 mg Acetaminophen/Hydrocodone Bitart ([place] 5mg/325mg) 1 tab PO Q6H PRN PRN Reason: Severe Pain Stop: 01/23/18 22:40 Last Admin: 11/27/17 13:50 Dose: 1 tab Alprazolam (Xanax) 0.25 mg PO Q6H PRN; Protocol PRN Reason: restlessness Stop: 01/26/18 19:41 Last Admin: 11/27/17 21:54 Dose: 0.25 mg Atorvastatin Calcium (Lipitor) 10 mg PO HS [facility]; Protocol Stop: 01/26/18 20:59 Last Admin: 11/29/17 20:33 Dose: 10 mg Bacitracin (Baciquent) 1 appl TP DAILY [facility] Stop: 01/29/18 08:59 Vancomycin HCl 1.5 gm/ Sodium (Chloride) 500 mls @ 250 mls/hr IV Q24HR@0900 [facility] Stop: 01/27/18 09:59 Last Admin: 11/29/17 10:32 Dose: 250 mls/hr Levofloxacin 250 mg/ (Miscellaneous) 50 mls @ 50 mls/hr IV Q24H [facility] Stop: 01/27/18 12:59 Last Admin: 11/29/17 12:54 Dose: 50 mls/hr Insulin Aspart (Novolog Insulin Sliding Scale) 0 units SUBQ ACHS [facility]; Protocol Stop: 01/24/18 07:29 Last Admin: 11/29/17 20:24 Dose: 6 units Lisinopril (Zestril) 40 mg PO DAILY [facility] Stop: 01/27/18 08:59 Last Admin: 06/20/18 09:04 Dose: Not Given Miscellaneous (Vancomycin Iv Per Pharmacy) 1 ea MC PRN PRN PRN Reason: PROTOCOL Stop: 01/26/18 21:02 Mupirocin (Bactroban Oint) 1 appl TP BID [facility] Stop: 01/25/18 16:59 Last Admin: 11/29/17 17:54 Dose: 1 appl Sotalol HCl (Betapace) 80 mg PO DAILY [facility] Stop: 01/24/18 11:59 Last Admin: 11/29/17 09:04 Dose: Not Given Temazepam (Restoril) 15 mg PO HS PRN; Protocol PRN Reason: Insomnia Stop: 01/26/18 19:40 Last Admin: 11/28/17 03:02 Dose: 15 mg Tramadol HCl (Ultram) 50 mg PO Q6HR PRN PRN Reason: Leg Cramps Stop: 01/23/18 21:34 Last Admin: 11/27/17 21:53 Dose: 50 mg General: alert, obese HEENT: NC/AT, PERRLA, EOMI, anicteric sclerae, throat clear Neck: Supple, No JVD, No thyromegaly, +2 carotid pulse wo bruit, No LAD Lungs: CTAB Cardiovascular: RRR, Normal S1, Normal S2, without murmur Abdomen: soft, non-tender, non-distended Extremities: edema, rash Neurological: no change Internal Medicine Assmt/Plan - Assessment Assessment: 1.ACUTE RENAL FAILURE.improving. 2.DM. 3.CHRONIC AFIB, 4.HTN 5.TREMOR OF UPPER EXTREM. 6.FEVER 7.BACTEREMIA.. - Plan Plan: CONTINUE ON CURRENT MEDICATION AND DIET. Nutritional Asmnt/Malnutr-PDOC - Dietary Evaluation Malnutrition Findings (Please click <Entered> for more info): Nutritional Asmnt/Malnutrition Start: 11/25/17 09: 39 Text: Status: Complete Freq: Protocol: Document 11/25/17 09:39 LLUC (Rec: 11/25/17 09:53 LLUC LUIS [id number]) Nutritional Asmnt/Malnutrition Patient General Information Nutritional Screening High Risk Consult Diagnosis ARF, Severe hyperkalemia Pertinent Medical Hx/Surgical Hx ARF 2/2 ATN, DM 2, HTN, CHF, obesity, arthritis b/L knee DJD, Dyslipidemia, A Fib, Tremor Subjective Information Consult received for Vijay Hogan . Patient seen in room with son. Patient reports feeling better, said no issues with appetite but intake inadequate per EMR. Patient reported no dialysis per MD. RD reviewed CKD diet with patient and son; encouraged low sodium/ potassium diet. and daughter manages meals. RD to provide additional education to and daughter upon f/u and discharge. Current Diet Order/ Nutrition Support Renal Patient / S.O Can Pertinent Medications novolog Pertinent Labs 11/25: K+ 4.8 (improved), BUN 88, Creat 4.9, Gluc 139-146, Alb 3.6 (decreased) 11/24: K+ 6.7, BUN 99, Creat 5. 9, Alb 4 Nutritional Hx/Data Height 1.75 m Height (Calculated Centimeters) 175.3 Current Weight (lbs) 111.13 kg Weight (Calculated Kilograms) 111.1 Weight (Calculated Grams) 777275.1 [place] Body Weight 160 % [place] Body Weight 153 Body Mass Index (BMI) 36.1 Weight Status Morbidly Obese GI Symptoms GI Symptoms None Last BM 11/25 Difficult in: None Food Allergies No Usual diet at home no specific diet at home Skin Integrity/Comment: Vijay Hogan; R foot reddened, b/ l lower leg abrasion, R face abrasion Current %PO Fair (50-74%) Estimated Nutritional Goals BEE in Kcals: Adj wt of IBW Calories/Kcals/Kg 22-25 Kcals Calculated 0858-2868 Protein: Adj wt of IBW Protein g/k.6-0.8 Protein Calculated 50-66 d/t elevated BUN/Creat not on dialysis Fluid: ml per MD Nutritional Problem 1. Problem Problem Altered nutrition-related labs Etiology renal insufficiency Signs/Symptoms: elevated BUN/Creat Intervention/Recommendation Comments 1. Recommend continuing renal diet. 2. Recommend adding arginine for wound healing. Expected Outcomes/Goals Expected Outcomes/Goals Goal: 1. PO intake to meet at least 75% of nutritional needs. 2. Wt to trend towards IBW, improved skin integrity, labs to approach WNL. Monitor PO intake, wt, labs and skin integrity F/U as high risk in 2-3 days, 11/27-11/28
[2017-11-30] MEDS ORDERED: NIFEdipine 30 mg ER Tab PO STA (01:08)
--- NOTE | 2017-11-30 01:59 | Consultation ---
DATE OF CONSULTATION: 11/28/2017 PRIMARY CARE PHYSICIAN: Dr. Saleh HISTORY OF PRESENT ILLNESS: This is a 72-year-old male who was brought to the Emergency Room with complaint of generalized weakness. The patient has recurrent fall. When the patient came to ER, the patient was found to have renal failure, seen by renal, Dr. Bourgeois, and the patient admitted to ICU. The patient's kidney function improved and then transferred to telemetry. Infectious consultation was called because of fever of 101. Antibiotic evaluated. Cultures ordered. The patient was examined as soon as possible. PAST HISTORY: Atrial fibrillation, diabetes, hypertension. ALLERGIES: PENICILLIN. SOCIAL HISTORY: Nonsmoker. REVIEW OF SYSTEMS: A 14-point review of systems negative except above. PHYSICAL EXAMINATION: GENERAL: Well-nourished male, alert, awake, oriented x3. VITAL SIGNS: Temperature 101, pulse 61, respirations 18, blood pressure 115/53. HEENT: Mild pallor. No icterus or plaque. NECK: Supple. LUNGS: Breath sounds bilateral vesicular. ABDOMEN: Soft. Bowel sounds present. EXTREMITIES: Mild pedal edema. The patient has leg cellulitis. LABORATORY DATA: MRSA screening negative. Blood culture positive for Staph aureus, sensitivity pending. White count is 8000, hemoglobin is 11 grams, platelets 206. Chemistry shows creatinine 1.4. Chest x-ray done in the Emergency Room shows cardiomegaly. DIAGNOSES: Staph aureus septicemia. The patient already on vancomycin. We will add Levaquin for cellulitis. Penicillin allergy, avoid. Diabetes, Accu-Chek. Hypertension, stable at this time. Renal failure, improving. Thank you Dr. Saleh for this consultation. JOB# [id number]
[2017-11-30 07:25] LABS: ANION GAP 9.8 (7.0-16.0); BUN - UREA NITROGEN 20 mg/dL (7-25); CALCIUM SERUM 8.7 mg/dL (8.6-10.3); CARBON DIOXIDE 30.1 mEq/L (21.0-31.0); CHLORIDE 93 mEq/L (98-107); CREATININE - SERUM 1.3 mg/dL (0.7-1.3); GLUCOSE 148 mg/dL (70-105); POTASSIUM SERUM 3.9 mEq/L (3.5-5.1); SODIUM SERUM 129 mEq/L (136-145)
[2017-11-30] MEDS: INSULIN ASPART SLIDING SCALE 100 UNITS/ML UNIT SUBQ SCH ×4 (08:27→21:11)
[2017-11-30] MEDS ORDERED: NIFEdipine 30 mg ER Tab PO SCH (09:00)
[2017-11-30] MEDS: Vancomycin HCl 1.5 GM in Sodium Chloride 0.9% 500 ML IV SCH (09:34)
[2017-11-30] MEDS: Levofloxacin 250mg/50mL 250 MG in Premix Fluid 1 BAG IV SCH (13:55)
--- NOTE | 2017-11-30 16:07 | General Progress Note ---
Subjective - Review of Systems Service Date: 11/30/17 Subjective: pt in bed. Objective - Results Result Diagrams: 11/28/17 05:15 11/30/17 06:49 Recent Labs: Laboratory Last Values WBC 9.9 Th/cmm (4.8-10.8) 11/28/17 05:15 RBC 3.46 Mil/cmm (3.80-5.80) L 11/28/17 05:15 Hgb 11.6 gm/dL (12-16) L 11/28/17 05:15 Hct 33.7 % (41.0-60) L 11/28/17 05:15 MCV 97.4 fl (80-99) 11/28/17 05:15 MCH 33.4 pg (27.0-31.0) H 11/28/17 05:15 MCHC Differential 34.3 pg (28.0-36.0) 11/28/17 05:15 RDW 11.4 % (11.5-20.0) L 11/28/17 05:15 Plt Count 226 Th/cmm (150-400) 11/28/17 05:15 MPV 7.8 fl 11/28/17 05:15 Neutrophils % 85.4 % (40.0-80.0) H 11/28/17 05:15 Lymphocytes % 6.0 % (20.0-50.0) L 11/28/17 05:15 Monocytes % 7.7 % (2.0-10.0) 11/28/17 05:15 Eosinophils % 0.4 % (0.0-5.0) 11/28/17 05:15 Basophils % 0.5 % (0.0-2.0) 11/28/17 05:15 PT 10.6 SECONDS (9.5-11.5) 11/24/17 16:50 INR 1.02 (0.5-1.4) 11/24/17 16:50 PTT (Actin FS) 23.0 SECONDS (26.0-38.0) L 11/24/17 16:50 Sodium 129 mEq/L (136-145) L 11/30/17 06:49 Potassium 3.9 mEq/L (3.5-5.1) 11/30/17 06:49 Chloride 93 mEq/L (98-107) L 11/30/17 06:49 Carbon Dioxide 30.1 mEq/L (21.0-31.0) 11/30/17 06:49 Anion Gap 9.8 (7.0-16.0) 11/30/17 06:49 BUN 20 mg/dL (7-25) 11/30/17 06:49 Creatinine 1.3 mg/dL (0.7-1.3) 11/30/17 06:49 Est GFR ( Amer) TNP 11/30/17 06:49 Est GFR (Non-Af Amer) TNP 11/30/17 06:49 BUN/Creatinine Ratio 15.4 11/30/17 06:49 Glucose 148 mg/dL (70-105) H 11/30/17 06:49 POC Glucose 152 MG/DL (70 - 105) H 11/30/17 06:29 Calcium 8.7 mg/dL (8.6-10.3) 11/30/17 06:49 Total Bilirubin 0.8 mg/dL (0.3-1.0) 11/28/17 05:15 AST 34 U/L (13-39) 11/28/17 05:15 ALT 28 U/L (7-52) 11/28/17 05:15 Alkaline Phosphatase 72 U/L (34-104) 11/28/17 05:15 Troponin I < 0.01 ng/mL (0.01-0.05) L 11/24/17 16:50 B-Natriuretic Peptide 83.2 pg/mL (5.0-100.0) 11/24/17 16:50 Total Protein 6.3 gm/dL (6.0-8.3) 11/28/17 05:15 Albumin 3.4 gm/dL (4.2-5.5) L 11/28/17 05:15 Globulin 2.9 gm/dL 11/28/17 05:15 Albumin/Globulin Ratio 1.2 (1.0-1.8) 11/28/17 05:15 Triglycerides 115 mg/dL (<150) 11/27/17 04:10 Cholesterol 98 mg/dL (<200) 11/27/17 04:10 LDL Cholesterol Direct 44 mg/dL (75-193) L 11/27/17 04:10 HDL Cholesterol 31 mg/dL (23-92) 11/27/17 04:10 Free T4 1.21 ng/dL (0.82-1.77) 11/27/17 04:10 Free T3 2.3 pg/mL (2.0-4.4) 11/27/17 04:10 TSH 6.88 uIU/ml (0.34-5.60) H 11/27/17 04:10 Urine Source RANDOM 11/24/17 16:36 Urine Color YELLOW 11/24/17 16:36 Urine Clarity CLEAR (CLEAR) 11/24/17 16:36 Urine pH 5.5 (4.6 - 8.0) 11/24/17 16:36 Ur Specific [place] 1.025 (1.005-1.030) 11/24/17 16:36 Urine Protein NEGATIVE mg/dL (NEGATIVE) 11/24/17 16:36 Urine Glucose (UA) NEGATIVE mg/dL (NEGATIVE) 11/24/17 16:36 Urine Ketones NEGATIVE mg/dL (NEGATIVE) 11/24/17 16:36 Urine Blood TRACE (NEGATIVE) 11/24/17 16:36 Urine Nitrate NEGATIVE (NEGATIVE) 11/24/17 16:36 Urine Bilirubin NEGATIVE (NEGATIVE) 11/24/17 16:36 Urine Urobilinogen 0.2 E.U./dL (0.2 - 1.0) 11/24/17 16:36 Ur Leukocyte Esterase NEGATIVE (NEGATIVE) 11/24/17 16:36 Urine RBC 0-2 /hpf (0-5) H 11/24/17 16:36 Urine WBC 2-5 /hpf (0-5) 11/24/17 16:36 Ur Epithelial Cells FEW /lpf (FEW) 11/24/17 16:36 Urine Bacteria NONE SEEN /hpf (NONE SEEN) 11/24/17 16:36 Vancomycin Trough 12.8 ug/mL (5-10) H 11/29/17 08:15 - Physical Exam Vitals and I&O: Vital Signs Temp 97.3 F 11/30/17 12:30 Pulse 57 11/30/17 12:30 Resp 18 11/30/17 15:19 BP 128/63 11/30/17 12:30 Pulse Ox 94 11/30/17 12:30 Intake & Output 11/29/17 11/30/17 11/30/17 18:59 06:59 18:59 Intake Total 2250 150 Output Total 100 600 400 Balance 2150 -450 -400 Weight (lbs) 116.12 kg 117.112 kg 116.981 kg Intake: Intake, IV Amount 550 Levofloxacin 250mg/50mL 50 250 mg In Premix Fluid 1 bag @ 50 mls/hr IV Q24H [facility] Rx#:[id number] Vancomycin HCl 1.5 gm In 500 Sodium Chloride 0.9% 500 ml @ 250 mls/hr IV Q24HR@ 0900 [facility] Rx#:[id number] Oral 1700 150 Output: Urine 100 600 400 Stool 0 Other: # Voids 3 3 # Bowel Movements 0 2 Weight Source Bedscale Bedscale Bedscale Active Medications: Current Medications Acetaminophen (Tylenol) 650 mg PO Q4H PRN PRN Reason: Pain or Fever >101 Stop: 01/26/18 20:30 Last Admin: 11/28/17 21:07 Dose: 650 mg Acetaminophen/Hydrocodone Bitart ([place] 5mg/325mg) 1 tab PO Q6H PRN PRN Reason: Severe Pain Stop: 01/23/18 22:40 Last Admin: 11/27/17 13:50 Dose: 1 tab Alprazolam (Xanax) 0.25 mg PO Q6H PRN; Protocol PRN Reason: restlessness Stop: 01/26/18 19:41 Last Admin: 11/30/17 01:19 Dose: 0.25 mg Atorvastatin Calcium (Lipitor) 10 mg PO HS [facility]; Protocol Stop: 01/26/18 20:59 Last Admin: 11/29/17 20:33 Dose: 10 mg Bacitracin (Baciquent) 1 appl TP DAILY [facility] Stop: 01/29/18 08:59 Last Admin: 11/30/17 10:47 Dose: 1 appl Vancomycin HCl 1.5 gm/ Sodium (Chloride) 500 mls @ 250 mls/hr IV Q24HR@0900 [facility] Stop: 01/27/18 09:59 Last Admin: 11/30/17 09:34 Dose: 250 mls/hr Levofloxacin 250 mg/ (Miscellaneous) 50 mls @ 50 mls/hr IV Q24H [facility] Stop: 01/27/18 12:59 Last Admin: 11/30/17 13:55 Dose: 50 mls/hr Insulin Aspart (Novolog Insulin Sliding Scale) 0 units SUBQ ACHS [facility]; Protocol Stop: 01/24/18 07:29 Last Admin: 11/30/17 12:09 Dose: 4 units Lisinopril (Zestril) 40 mg PO DAILY [facility] Stop: 01/27/18 08:59 Last Admin: 11/30/17 08:26 Dose: 40 mg Miscellaneous (Vancomycin Iv Per Pharmacy) 1 ea [facility] PRN PRN PRN Reason: PROTOCOL Stop: 01/26/18 21:02 Mupirocin (Bactroban Oint) 1 appl TP BID [facility] Stop: 01/25/18 16:59 Last Admin: 11/30/17 08:26 Dose: 1 appl Sotalol HCl (Betapace) 80 mg PO DAILY [facility] Stop: 01/24/18 11:59 Last Admin: 11/30/17 08:28 Dose: 80 mg Temazepam (Restoril) 15 mg PO HS PRN; Protocol PRN Reason: Insomnia Stop: 01/26/18 19:40 Last Admin: 11/28/17 03:02 Dose: 15 mg Tramadol HCl (Ultram) 50 mg PO Q6HR PRN PRN Reason: Leg Cramps Stop: 01/23/18 21:34 Last Admin: 11/27/17 21:53 Dose: 50 mg General: Alert, Oriented x3 HEENT: Atraumatic, PERRLA, EOMI Neck: Supple Cardiovascular: Regular rate, Normal S1, Normal S2 Lungs: Clear to auscultation Abdomen: Bowel sounds, Soft Extremities: Edema Assessment/Plan - Assessment Assessment: ACUTE RENAL FAILURE SECONDARY TO ATN HYPERKALEMIA HYPONATREMIA METABOLIC ACIDOSIS DM HTN AFIB - Plan Plan: POTASSIUM SODIUM AND KIDNEY FUNCTION IMPROVED DC IVF AND START SMALL DOSE OF LASIX Nutritional Asmnt/Malnutr-PDOC - Dietary Evaluation Malnutrition Findings (Please click <Entered> for more info): Nutritional Asmnt/Malnutrition Start: 11/25/17 09: 39 Text: Status: Complete Freq: Protocol: Document 11/25/17 09:39 LLUC (Rec: 11/25/17 09:53 LLUC LUIS [id number]) Nutritional Asmnt/Malnutrition Patient General Information Nutritional Screening High Risk Consult Diagnosis ARF, Severe hyperkalemia Pertinent Medical Hx/Surgical Hx ARF 2/2 ATN, DM 2, HTN, CHF, obesity, arthritis b/L knee DJD, Dyslipidemia, A Fib, Tremor Subjective Information Consult received for Vijay Hogan . Patient seen in room with son. Patient reports feeling better, said no issues with appetite but intake inadequate per EMR. Patient reported no dialysis per MD. RD reviewed CKD diet with patient and son; encouraged low sodium/ potassium diet. and daughter manages meals. RD to provide additional education to and daughter upon f/u and discharge. Current Diet Order/ Nutrition Support Renal Patient / S.O Can Pertinent Medications novolog Pertinent Labs 11/25: K+ 4.8 (improved), BUN 88, Creat 4.9, Gluc 139-146, Alb 3.6 (decreased) 11/24: K+ 6.7, BUN 99, Creat 5. 9, Alb 4 Nutritional Hx/Data Height 1.75 m Height (Calculated Centimeters) 175.3 Current Weight (lbs) 111.13 kg Weight (Calculated Kilograms) 111.1 Weight (Calculated Grams) 766227.1 [place] Body Weight 160 % [place] Body Weight 153 Body Mass Index (BMI) 36.1 Weight Status Morbidly Obese GI Symptoms GI Symptoms None Last BM 11/25 Difficult in: None Food Allergies No Usual diet at home no specific diet at home Skin Integrity/Comment: Vijay Hogan; R foot reddened, b/ l lower leg abrasion, R face abrasion Current %PO Fair (50-74%) Estimated Nutritional Goals BEE in Kcals: Adj wt of IBW Calories/Kcals/Kg 22-25 Kcals Calculated 3697-6324 Protein: Adj wt of IBW Protein g/k.6-0.8 Protein Calculated 50-66 d/t elevated BUN/Creat not on dialysis Fluid: ml per MD Nutritional Problem 1. Problem Problem Altered nutrition-related labs Etiology renal insufficiency Signs/Symptoms: elevated BUN/Creat Intervention/Recommendation Comments 1. Recommend continuing renal diet. 2. Recommend adding arginine for wound healing. Expected Outcomes/Goals Expected Outcomes/Goals Goal: 1. PO intake to meet at least 75% of nutritional needs. 2. Wt to trend towards IBW, improved skin integrity, labs to approach WNL. Monitor PO intake, wt, labs and skin integrity F/U as high risk in 2-3 days, 11/27-11/28
--- NOTE | 2017-11-30 19:54 | Internal Medicine Prog Note ---
Internal Medicine Subjective - Subjective Service Date: 11/30/17 Patient seen and examined:: with staff (he feels better) Patient is:: awake, verbal, in bed, talking Per staff patient has:: no adverse event Internal Medicine Objective - Results Result Diagrams: 11/28/17 05:15 11/30/17 06:49 Recent Labs: Laboratory Last Values WBC 9.9 Th/cmm (4.8-10.8) 11/28/17 05:15 RBC 3.46 Mil/cmm (3.80-5.80) L 11/28/17 05:15 Hgb 11.6 gm/dL (12-16) L 11/28/17 05:15 Hct 33.7 % (41.0-60) L 11/28/17 05:15 MCV 97.4 fl (80-99) 11/28/17 05:15 MCH 33.4 pg (27.0-31.0) H 11/28/17 05:15 MCHC Differential 34.3 pg (28.0-36.0) 11/28/17 05:15 RDW 11.4 % (11.5-20.0) L 11/28/17 05:15 Plt Count 226 Th/cmm (150-400) 11/28/17 05:15 MPV 7.8 fl 11/28/17 05:15 Neutrophils % 85.4 % (40.0-80.0) H 11/28/17 05:15 Lymphocytes % 6.0 % (20.0-50.0) L 11/28/17 05:15 Monocytes % 7.7 % (2.0-10.0) 11/28/17 05:15 Eosinophils % 0.4 % (0.0-5.0) 11/28/17 05:15 Basophils % 0.5 % (0.0-2.0) 11/28/17 05:15 PT 10.6 SECONDS (9.5-11.5) 11/24/17 16:50 INR 1.02 (0.5-1.4) 11/24/17 16:50 PTT (Actin FS) 23.0 SECONDS (26.0-38.0) L 11/24/17 16:50 Sodium 129 mEq/L (136-145) L 11/30/17 06:49 Potassium 3.9 mEq/L (3.5-5.1) 11/30/17 06:49 Chloride 93 mEq/L (98-107) L 11/30/17 06:49 Carbon Dioxide 30.1 mEq/L (21.0-31.0) 11/30/17 06:49 Anion Gap 9.8 (7.0-16.0) 11/30/17 06:49 BUN 20 mg/dL (7-25) 11/30/17 06:49 Creatinine 1.3 mg/dL (0.7-1.3) 11/30/17 06:49 Est GFR ( Amer) TNP 11/30/17 06:49 Est GFR (Non-Af Amer) TNP 11/30/17 06:49 BUN/Creatinine Ratio 15.4 11/30/17 06:49 Glucose 148 mg/dL (70-105) H 11/30/17 06:49 POC Glucose 152 MG/DL (70 - 105) H 11/30/17 06:29 Calcium 8.7 mg/dL (8.6-10.3) 11/30/17 06:49 Total Bilirubin 0.8 mg/dL (0.3-1.0) 11/28/17 05:15 AST 34 U/L (13-39) 11/28/17 05:15 ALT 28 U/L (7-52) 11/28/17 05:15 Alkaline Phosphatase 72 U/L (34-104) 11/28/17 05:15 Troponin I < 0.01 ng/mL (0.01-0.05) L 11/24/17 16:50 B-Natriuretic Peptide 83.2 pg/mL (5.0-100.0) 11/24/17 16:50 Total Protein 6.3 gm/dL (6.0-8.3) 11/28/17 05:15 Albumin 3.4 gm/dL (4.2-5.5) L 11/28/17 05:15 Globulin 2.9 gm/dL 11/28/17 05:15 Albumin/Globulin Ratio 1.2 (1.0-1.8) 11/28/17 05:15 Triglycerides 115 mg/dL (<150) 11/27/17 04:10 Cholesterol 98 mg/dL (<200) 11/27/17 04:10 LDL Cholesterol Direct 44 mg/dL (75-193) L 11/27/17 04:10 HDL Cholesterol 31 mg/dL (23-92) 11/27/17 04:10 Free T4 1.21 ng/dL (0.82-1.77) 11/27/17 04:10 Free T3 2.3 pg/mL (2.0-4.4) 11/27/17 04:10 TSH 6.88 uIU/ml (0.34-5.60) H 11/27/17 04:10 Urine Source RANDOM 11/24/17 16:36 Urine Color YELLOW 11/24/17 16:36 Urine Clarity CLEAR (CLEAR) 11/24/17 16:36 Urine pH 5.5 (4.6 - 8.0) 11/24/17 16:36 Ur Specific [place] 1.025 (1.005-1.030) 11/24/17 16:36 Urine Protein NEGATIVE mg/dL (NEGATIVE) 11/24/17 16:36 Urine Glucose (UA) NEGATIVE mg/dL (NEGATIVE) 11/24/17 16:36 Urine Ketones NEGATIVE mg/dL (NEGATIVE) 11/24/17 16:36 Urine Blood TRACE (NEGATIVE) 11/24/17 16:36 Urine Nitrate NEGATIVE (NEGATIVE) 11/24/17 16:36 Urine Bilirubin NEGATIVE (NEGATIVE) 11/24/17 16:36 Urine Urobilinogen 0.2 E.U./dL (0.2 - 1.0) 11/24/17 16:36 Ur Leukocyte Esterase NEGATIVE (NEGATIVE) 11/24/17 16:36 Urine RBC 0-2 /hpf (0-5) H 11/24/17 16:36 Urine WBC 2-5 /hpf (0-5) 11/24/17 16:36 Ur Epithelial Cells FEW /lpf (FEW) 11/24/17 16:36 Urine Bacteria NONE SEEN /hpf (NONE SEEN) 11/24/17 16:36 Vancomycin Trough 12.8 ug/mL (5-10) H 11/29/17 08:15 - Physical Exam Vitals and I&O: Vital Signs Temp 98.3 F 11/30/17 16:00 Pulse 56 11/30/17 19:13 Resp 18 11/30/17 19:13 BP 131/73 11/30/17 17:50 Pulse Ox 98 11/30/17 19:13 Intake & Output 11/30/17 11/30/17 12/01/17 06:59 18:59 06:59 Intake Total 150 Output Total 600 400 Balance -450 -400 Weight (lbs) 117.112 kg 116.981 kg Intake: Oral 150 Output: Urine 600 400 Other: # Voids 3 # Bowel Movements 0 2 Weight Source Bedscale Bedscale Active Medications: Current Medications Acetaminophen (Tylenol) 650 mg PO Q4H PRN PRN Reason: Pain or Fever >101 Stop: 01/26/18 20:30 Last Admin: 11/28/17 21:07 Dose: 650 mg Acetaminophen/Hydrocodone Bitart ([place] 5mg/325mg) 1 tab PO Q6H PRN PRN Reason: Severe Pain Stop: 01/23/18 22:40 Last Admin: 11/27/17 13:50 Dose: 1 tab Alprazolam (Xanax) 0.25 mg PO Q6H PRN; Protocol PRN Reason: restlessness Stop: 01/26/18 19:41 Last Admin: 11/30/17 01:19 Dose: 0.25 mg Atorvastatin Calcium (Lipitor) 10 mg PO HS [facility]; Protocol Stop: 01/26/18 20:59 Last Admin: 11/29/17 20:33 Dose: 10 mg Bacitracin (Baciquent) 1 appl TP DAILY [facility] Stop: 01/29/18 08:59 Last Admin: 11/30/17 10:47 Dose: 1 appl Vancomycin HCl 1.5 gm/ Sodium (Chloride) 500 mls @ 250 mls/hr IV Q24HR@0900 [facility] Stop: 01/27/18 09:59 Last Admin: 11/30/17 09:34 Dose: 250 mls/hr Levofloxacin 250 mg/ (Miscellaneous) 50 mls @ 50 mls/hr IV Q24H [facility] Stop: 01/27/18 12:59 Last Admin: 11/30/17 13:55 Dose: 50 mls/hr Insulin Aspart (Novolog Insulin Sliding Scale) 0 units SUBQ ACHS [facility]; Protocol Stop: 01/24/18 07:29 Last Admin: 11/30/17 16:51 Dose: 2 units Lisinopril (Zestril) 40 mg PO DAILY [facility] Stop: 01/27/18 08:59 Last Admin: 11/30/17 08:26 Dose: 40 mg Miscellaneous (Vancomycin Iv Per Pharmacy) 1 ea MC PRN PRN PRN Reason: PROTOCOL Stop: 01/26/18 21:02 Mupirocin (Bactroban Oint) 1 appl TP BID [facility] Stop: 01/25/18 16:59 Last Admin: 11/30/17 16:51 Dose: 1 appl Sotalol HCl (Betapace) 80 mg PO DAILY [facility] Stop: 01/24/18 11:59 Last Admin: 11/30/17 08:28 Dose: 80 mg Temazepam (Restoril) 15 mg PO HS PRN; Protocol PRN Reason: Insomnia Stop: 01/26/18 19:40 Last Admin: 11/28/17 03:02 Dose: 15 mg Tramadol HCl (Ultram) 50 mg PO Q6HR PRN PRN Reason: Leg Cramps Stop: 01/23/18 21:34 Last Admin: 11/27/17 21:53 Dose: 50 mg General: alert, obese HEENT: NC/AT, PERRLA, EOMI, anicteric sclerae, throat clear Neck: Supple, No JVD, No thyromegaly, +2 carotid pulse wo bruit, No LAD Lungs: CTAB Cardiovascular: RRR, Normal S1, Normal S2, without murmur Abdomen: soft, non-tender, non-distended Extremities: edema, rash Neurological: no change Internal Medicine Assmt/Plan - Assessment Assessment: 1.ACUTE RENAL FAILURE.improving. 2.DM. 3.CHRONIC AFIB, 4.HTN 5.TREMOR OF UPPER EXTREM. 6.FEVER 7.BACTEREMIA.. - Plan Plan: CONTINUE ON CURRENT MEDICATION AND DIET.HE IS CLEAR FOR DISCHARGE. Nutritional Asmnt/Malnutr-PDOC - Dietary Evaluation Malnutrition Findings (Please click <Entered> for more info): Nutritional Asmnt/Malnutrition Start: 11/25/17 09: 39 Text: Status: Complete Freq: Protocol: Document 11/25/17 09:39 LLUC (Rec: 11/25/17 09:53 LLUC [email or web address] [id number]) Nutritional Asmnt/Malnutrition Patient General Information Nutritional Screening High Risk Consult Diagnosis ARF, Severe hyperkalemia Pertinent Medical Hx/Surgical Hx ARF 2/2 ATN, DM 2, HTN, CHF, obesity, arthritis b/L knee DJD, Dyslipidemia, A Fib, Tremor Subjective Information Consult received for Vijay Hogan . Patient seen in room with son. Patient reports feeling better, said no issues with appetite but intake inadequate per EMR. Patient reported no dialysis per MD. RD reviewed CKD diet with patient and son; encouraged low sodium/ potassium diet. and daughter manages meals. RD to provide additional education to and daughter upon f/u and discharge. Current Diet Order/ Nutrition Support Renal Patient / S.O Can Pertinent Medications novolog Pertinent Labs 11/25: K+ 4.8 (improved), BUN 88, Creat 4.9, Gluc 139-146, Alb 3.6 (decreased) 11/24: K+ 6.7, BUN 99, Creat 5. 9, Alb 4 Nutritional Hx/Data Height 1.75 m Height (Calculated Centimeters) 175.3 Current Weight (lbs) 111.13 kg Weight (Calculated Kilograms) 111.1 Weight (Calculated Grams) 880487.1 [place] Body Weight 160 % [place] Body Weight 153 Body Mass Index (BMI) 36.1 Weight Status Morbidly Obese GI Symptoms GI Symptoms None Last BM 11/25 Difficult in: None Food Allergies No Usual diet at home no specific diet at home Skin Integrity/Comment: Vijay Hogan; R foot reddened, b/ l lower leg abrasion, R face abrasion Current %PO Fair (50-74%) Estimated Nutritional Goals BEE in Kcals: Adj wt of IBW Calories/Kcals/Kg 22-25 Kcals Calculated [id number] Protein: Adj wt of IBW Protein g/k.6-0.8 Protein Calculated 50-66 d/t elevated BUN/Creat not on dialysis Fluid: ml per MD Nutritional Problem 1. Problem Problem Altered nutrition-related labs Etiology renal insufficiency Signs/Symptoms: elevated BUN/Creat Intervention/Recommendation Comments 1. Recommend continuing renal diet. 2. Recommend adding arginine for wound healing. Expected Outcomes/Goals Expected Outcomes/Goals Goal: 1. PO intake to meet at least 75% of nutritional needs. 2. Wt to trend towards IBW, improved skin integrity, labs to approach WNL. Monitor PO intake, wt, labs and skin integrity F/U as high risk in 2-3 days, 11/27-11/28
[2017-11-30] MEDS: Atorvastatin Calcium 10 MG TAB PO SCH (21:16)
== END 2017-11-30 21:57 | DRG 871 ==
LOC: ER 15:39 → ICU 20:15 → TELE 11-27 20:19
PROVIDERS: ADMIT Family Medicine; ATTEND Family Medicine
DX: A41.01 Sepsis due to Methicillin susceptible Staphylococcus aureus (principal); N17.0 Acute kidney failure with tubular necrosis; I11.0 Hypertensive heart disease with heart failure; E87.1 Hypo-osmolality and hyponatremia; L03.119 Cellulitis of unspecified part of limb; L97.909 Non-pressure chronic ulcer of unspecified part of unspecified lower leg with unspecified severity; E87.5 Hyperkalemia; R29.6 Repeated falls; M19.90 Unspecified osteoarthritis, unspecified site; E11.40 Type 2 diabetes mellitus with diabetic neuropathy, unspecified; I45.10 Unspecified right bundle-branch block; R62.7 Adult failure to thrive; E66.9 Obesity, unspecified; I50.9 Heart failure, unspecified; M17.0 Bilateral primary osteoarthritis of knee; R25.1 Tremor, unspecified; R27.0 Ataxia, unspecified; I48.0 Paroxysmal atrial fibrillation; Z68.38 Body mass index [BMI] 38.0-38.9, adult; Z88.0 Allergy status to penicillin
CPT/HCPCS: 36415-UA; 71045-TC; 76770-TC; 80048-TC; 80053-TC; 80061-TC; 80202-TC; 81001-TC; 82948-90; 83880-TC; 84439-90; 84443-TC; 84479-90; 84484-TC; 85007-TC; 85025-TC; 85027-TC; 85610-TC; 90799; 93005; 94640; 94760; 96375; 96379; 97530; A4217; J0610; J1815; J1940; J1956; J3370; J7030; J7040; J7613; J7799; X3904; Z7610